=== PATIENT | male | born 1960 | race Caucasian/White ===

== ENCOUNTER 2024-03-09 14:01 | Outpatient (CLI) | payer OTHER, SELFPAY ==
--- NOTE | ~2024-03-09 | MR_ITS ---
EXAMINATION: MR shoulder LT wo con DATE: 03/09/2024 14:55 INDICATION: Shoulder pain TECHNIQUE: Magnetic resonance imaging (MRI) of the left shoulder was performed without intravenous co ntrast. Sequences included axial PD-weighted FS FSE, coronal oblique PD-weighted FS FSE, coronal obli que T2-weighted FS FSE, sagittal PD-weighted FS FSE, and sagittal T1-weighted SE. COMPARISON: None. FINDINGS: Coracoacromial arch: The acromion undersurface is flat in morphology (type I). The coracoacromial ligament is normal. Mode rate acromioclavicular osteoarthritis. Rotator cuff: Mild supraspinatus and infraspinatus tendinopathy without discrete tear. The teres minor tendon is no rmal. The subscapularis tendon is normal. Normal rotator cuff muscle bulk and signal. Biceps tendon, glenoid labrum and glenohumeral cartilage: Long head of the biceps tendon is normal. There is amorphous increased signal at the posterior superi or glenoid labrum consistent with labral degeneration. Small shallow tear at the chondral labral junc tion centered at the 3:00 position of the anterior glenoid. Partial-thickness chondral ulceration wit hout degenerative subchondral changes most prominent along the central and cephalad aspect of the gle noid and inferomedial and superior aspects of the humeral head. Fluid: Physiologic amount of fluid in the glenohumeral joint and biceps tendon sheath. No loose osteochondr al bodies. Mild increased fluid signal along the subdeltoid bursa consistent with minimal bursitis. Bones: Normal marrow signal with no edema, fracture or abnormal marrow replacing process. IMPRESSION: 1. Mild glenohumeral osteoarthritis with degeneration of the posterior superior glenoid labrum and sm all shallow tear at the chondrolabral junction at the anterior glenoid. 2. Mild supraspinatus and infraspinatus tendinopathy without discrete tear. 3. Moderate acromioclavicular osteoarthritis. Reviewed, dictated and finalized at location B. PEDIATRIC ALLERGIST IMPRESSION: 1. Mild glenohumeral osteoarthritis with degeneration of the posterior superior glenoid labrum and small shallow tear at the chondrolabral junction at the ant erior glenoid. 2. Mild supraspinatus and infraspinatus tendinopathy without discrete tear. 3. Moderate acromioclavicular osteoarthritis.
== END 2024-03-09 14:02 | disposition home or self-care (01) ==
LOC: MICIMG 14:03
PROVIDERS: PCP Orthopaedic Surgery; Visit Provider Orthopaedic Surgery
DX: M19.012 Primary osteoarthritis, left shoulder (principal)
CPT/HCPCS: 73221

== ENCOUNTER 2024-03-30 08:35 | Outpatient (CLI) | payer OTHER, SELFPAY ==
--- NOTE | ~2024-03-30 | XR_ITS ---
EXAMINATION: XR lg joint inject/asp w image DATE: 03/30/2024 09:14 INDICATION: Adhesive capsulitis of left shoulder. TECHNIQUE: A time-out was performed to verify the patient's name, date of , and procedure to b e performed. The procedure including the risks, benefits, and alternatives was discussed with the pat ient. Risks discussed included bleeding and infection. The patient understood the risks and agreed to proceed. The skin overlying the left glenohumeral joint was prepped and draped in usual sterile fas hion. Anesthetic was administered with 1% lidocaine subcutaneously. A 22 G needle was advanced unde r fluoroscopic guidance into the joint. Subsequently, injectate consisting of 4 mL 1% lidocaine and 1 mL 80 mg/mL Depo-Medrol was instilled. The needle was removed and the entry site was cleaned and d ressed. There were no immediate complications. Fluoroscopy exposure time was 0.1 minutes. The total number of images was 1. FINDINGS: Real-time fluoroscopy demonstrates the needle in the left glenohumeral joint. Patient's laverne n prior to procedure:2/10. Patient's pain following the procedure: 0/10. IMPRESSION: 1. Fluoroscopy guided left glenohumeral joint injection of local anesthetic and steroid with decrease in the patient's presenting pain. Reviewed, dictated and finalized at location A. NING SPECIALIST
== END 2024-03-30 08:36 | disposition home or self-care (01) ==
LOC: ANHIMG 08:35
PROVIDERS: Visit Provider Orthopaedic Surgery
DX: M75.02 Adhesive capsulitis of left shoulder (principal); M25.512 Pain in left shoulder
CPT/HCPCS: 20610; 77002; J1010; J2003

== ENCOUNTER 2024-05-12 12:22 | Emergency (ER) | payer OTHER, SELFPAY ==
--- NOTE | ~2024-05-12 | CT_ITS ---
EXAMINATION: CT abdomen pelvis wo con DATE: 05/12/2024 15:13 INDICATION: Kidney stones TECHNIQUE: Computed tomography (CT) of the abdomen and pelvis was performed without intravenous contr ast. Automated exposure control and iterative reconstruction technique were employed. The dose-length product was 1454.20 mGy-cm. COMPARISON: None FINDINGS: Lung bases are clear. Heart size is normal. No pericardial or pleural effusion. Postoperative change of prior sleeve gastrectomy and cholecystectomy. Liver, spleen, pancreas and bilateral adrenal glands are normal. No urolithiasis at the normal bilateral kidneys and ureters. No hydroureteronephrosis or perinephric/ureteral stranding. Bladder is normal. There is however a 6 mm stone at the central glan ds of the penis likely within the distalmost penile urethra. No bowel obstruction. No free intraperit haney gas or fluid. No pathologically enlarged abdominal or pelvic lymphadenopathy. There are bilater al common iliac to external iliac artery stents. Chronic appearing mild anterior wedging at the T9-L1 with moderate lower thoracic and mild lumbar spondylosis. IMPRESSION: 1. 6 mm stone in the distal penile urethra. No other urolithiasis or hydronephrosis. Reviewed, dictated and finalized at location B. CTOR OF CASINO IMPRESSION: 1. 6 mm stone in the distal penile urethra. No other urolithiasis or hydronephr osis.
[2024-05-12 12:28] VITALS: BP 171/76; PULSE 73; RESP 18; TEMP 36.6; O2SAT 99
--- NOTE | 2024-05-12 13:13 | ED_ITS ---
HPI - Male Genitourinary General Chief complaint: Urogenital-Male <Racquel Ponce PA-C - Last Filed: 05/12/24 13:14> Stated complaint: kidney stone <Racquel Ponce PA-C - Last Filed: 05/12/24 13:14> Time Seen by Provider: 05/12/24 13:50 <Racquel Ponce PA-C - Last Filed: 05/12/24 13:14> Focused HPI: 63-year-old male presents to the emergency department with difficulty emptying his bladder for 1 week. Patient states he dribbles when he tries to urinate. He has no history of this occurring in the past. He is concerning may have a kidney stone stuck in his penis. He has no history of kidney stones. Denies abdominal pain or flank pain. Denies burning with urination and hematuria, however he does state he has some burning at the tip of his penis. No rashes or fever. Denies known history of enlarged prostate. GENERAL: Well-appearing, well-nourished, and in no acute distress. HEAD: Normocephalic, atraumatic. CHEST: Clear to auscultation. ?No respiratory distress. ABD: Normoactive bowel sounds for abdomen soft and nontender. No rebound or rigidity. No CVA tenderness. HEART: Regular rate and rhythm.? NEURO: ?Alert and oriented x3. Patient screened in triage and initial orders placed.? ?Additional care and disposition to be based upon?diagnostic testing and treatment. <Racquel Ponce PA-C - Last Filed: 05/12/24 13:14> Source: patient <Redd Eduardo MD - Last Filed: 05/12/24 16:10> Mode of arrival: ambulatory <Redd Eduardo MD - Last Filed: 05/12/24 16:10> Limitations: no limitations <Redd Eduardo MD - Last Filed: 05/12/24 16:10> History of Present Illness HPI Narrative: 63-year-old with a history of of hypercholesteremia, Cl 100 admission, good here with the complaints of difficulty in urinating for past 1 week. Patient states he has mild pain in his penis when urinating. Denies any blood in the urine. No previous history of BPH or kidney stones . Denies any nausea or vomiting. No history of fever or chills. <Redd Eduardo MD - Last Filed: 05/12/24 16:10> MD Complaint: other (Penile pain) <Redd Eduardo MD - Last Filed: 05/12/24 16:10> Onset (ago): week(s) (1) <Redd Eduardo MD - Last Filed: 05/12/24 16:10> Duration: intermittent <Redd Eduardo MD - Last Filed: 05/12/24 16:10> Radiation: penis <Redd Eduardo MD - Last Filed: 05/12/24 16:10> Severity: mild <Redd Eduardo MD - Last Filed: 05/12/24 16:10> Quality: aching <Redd Eduardo MD - Last Filed: 05/12/24 16:10> Relieving factors: none <Redd Eduardo MD - Last Filed: 05/12/24 16:10> Exacerbating factors: urination <Redd Eduardo MD - Last Filed: 05/12/24 16:10> Associated symptoms: Reports denies other symptoms <Redd Eduardo MD - Last Filed: 05/12/24 16:10> Related Data Home medications: Home Medications ?Medication ?Instructions ?Recorded ?Confirmed ?Last Taken ?Type albuterol sulfate 90 mcg/actuation 1 puff inhalation Q4H PRN 02/18/24 03/17/24 Unknown History aerosol inhaler aspirin 81 mg tablet,delayed 81 mg PO DAILY 02/18/24 03/17/24 Unknown History release clopidogrel 75 mg tablet 75 mg PO DAILY 02/18/24 03/17/24 Unknown History furosemide 20 mg tablet 20 mg PO BID 02/18/24 03/17/24 Unknown History metoprolol succinate 25 mg 25 mg PO DAILY 02/18/24 03/17/24 Unknown History tablet,extended release 24 hr omeprazole 40 mg capsule,delayed 40 mg PO DAILY 02/18/24 03/17/24 Unknown History release pravastatin 40 mg tablet 40 mg PO DAILY 02/18/24 03/17/24 Unknown History prochlorperazine maleate 10 mg 10 mg PO Q8H PRN 10/23/24 11/20/24 Unknown History tablet propranolol 60 mg capsule,24 60 mg PO DAILY 02/18/24 03/17/24 Unknown History hr,extended release trazodone 50 mg tablet 50 mg PO QHS PRN 02/18/24 03/17/24 Unknown History <Racquel Ponce PA-C - Last Filed: 05/12/24 13:14> Allergies/Adverse reactions: Allergies Allergy/AdvReac Type Severity Reaction Status Date / Time No Known Allergies Allergy Mild Verified 03/17/24 11:44 <Racquel Ponce PA-C - Last Filed: 05/12/24 13:14> Review of Systems 2 Review of Systems: All systems reviewed & are unremarkable except as noted in HPI and below <Redd Eduardo MD - Last Filed: 05/12/24 16:10> Constitutional: Constitutional: Reports no additional constitutional complaints <Redd Eduardo MD - Last Filed: 05/12/24 16:10> ENT: Reports system reviewed and no additional complaints, except as documented <Redd Eduardo MD - Last Filed: 05/12/24 16:10> Cardiovascular: Cardiovascular: Reports no additional cardiovascular complaints <Redd Eduardo MD - Last Filed: 05/12/24 16:10> Respiratory: Respiratory: Reports no additional respiratory complaints < Redd Eduardo MD - Last Filed: 05/12/24 16:10> Gastrointestinal: Gastrointestinal: Reports no additional gastrointestinal complaints <Redd Eduardo MD - Last Filed: 05/12/24 16:10> Genitourinary: Genitourinary: Reports as per HPI <Redd Eduardo MD - Last Filed: 05/12/24 16:10> Musculoskeletal: Musculoskeletal: Reports no additional musculoskeletal complaints <Redd Eduardo MD - Last Filed: 05/12/24 16:10> Integumentary/Breasts: Skin/Breast: Reports system reviewed and no additional complaints, except as docu <Redd Eduardo MD - Last Filed: 05/12/24 16:10> Neurologic: Reports system reviewed and no additional complaints, except as documented <Redd Eduardo MD - Last Filed: 05/12/24 16:10> Endocrine: Endocrine: Reports no additional endocrine complaints <Redd Eduardo MD - Last Filed: 05/12/24 16:10> PMFSH Past Medical History Medical History: Medical History History of chronic lymphocytic leukemia History of tennis elbow 1993 Cancer GERD (gastroesophageal reflux disease) Asthma <Racquel Ponce PA-C - Last Filed: 05/12/24 13:14> Surgical History Surgical History: Surgical History History of surgery on lower extremity stints in upper thigh right leg 2020 History of nasal surgery stints 2019 History of cholecystectomy 2019 History of weight loss surgery gastric sleeve 2017 History of tumor removed from right side of jaw under ear 2015 History of skin graft left right finger from neck 1980 History of appendectomy 1975 <Racquel Ponce PA-C - Last Filed: 05/12/24 13:14> Family History Family History: Family History Father Heart disease <Racquel Ponce PA-C - Last Filed: 05/12/24 13:14> Social History Social History: Social History Smoking status: Never smoker Alcohol intake: current Substance use: never Do You Feel Safe in your Home?: Yes Lack of Transportation: No Lack of Food: Never True Current Housing: I Have Housing Concerned About Future Housing: No Difficulty Paying Gas/Electric Bills: No Difficulty Paying for Meds: No Currently Unemployed: No Education: High School Diploma/GED Difficulty w/ Childcare or Family Care: No Living arrangements: with family <Racquel Ponce PA-C - Last Filed: 05/12/24 13:14> Exam 2 Narrative: GENERAL: Well-appearing, well-nourished, and in no acute distress. HEAD: Normocephalic, atraumatic. EYES: PERRLA and EOMI. ENT: Nares clear, no rhinorrhea or epistaxis. Mucous membranes moist. NECK: Supple. CHEST: Clear to auscultation. No respiratory distress. HEART: Regular rate and rhythm. No murmur heard. Normal peripheral pulses. ABDOMEN: Soft, nontender, nondistended, normal active bowel sounds. No CVA tenderness EXTREMITIES: Normal range of motion. No edema. SKIN: Warm, dry, no rash. NEURO: No focal deficits. Alert and oriented x3. PSYCH: Normal mood and affect. <Redd Eduardo MD - Last Filed: 05/12/24 16:10> Course Course Emergency Course: Patient remained comfortable while here in the ER. Informed him about the lab work, CT findings. Advised him to drink more fluids as tolerated. <Redd Eduardo MD - Last Filed: 05/12/24 16:10> Vital Signs Vital signs: Vital Signs Temperature 36.6 C 05/12/24 12:28 Pulse Rate 73 05/12/24 12:28 Respiratory Rate 18 05/12/24 12:28 Blood Pressure 171/76 H 05/12/24 12:28 Pulse Oximetry 99 05/12/24 12:28 Oxygen Delivery Room Air 05/12/24 12:28 Temperature 36.6 C 05/12/24 12:28 Pulse Rate 73 05/12/24 12:28 Respiratory Rate 18 05/12/24 12:28 Blood Pressure 171/76 H 05/12/24 12:28 Pulse Oximetry 99 05/12/24 12:28 Oxygen Delivery Room Air 05/12/24 12:28 <Racquel Ponce PA-C - Last Filed: 05/12/24 13:14> Vital Signs Temperature 36.6 C 05/12/24 12:28 Pulse Rate 73 05/12/24 12:28 Respiratory Rate 18 05/12/24 12:28 Blood Pressure 171/76 H 05/12/24 12:28 Pulse Oximetry 99 05/12/24 12:28 Oxygen Delivery Room Air 05/12/24 12:28 Temperature 36.6 C 05/12/24 12:28 Pulse Rate 73 05/12/24 12:28 Respiratory Rate 18 05/12/24 12:28 Blood Pressure 171/76 H 05/12/24 12:28 Pulse Oximetry 99 05/12/24 12:28 Oxygen Delivery Room Air 05/12/24 12:28 <Redd Eduardo MD - Last Filed: 05/12/24 16:10> MDM - Male Genitourinary Differential Diagnosis Differential diagnosis: Likely urinary tract infection, urethritis and other (Kidney stone) <Redd Eduardo MD - Last Filed: 05/12/24 16:10> Medical Records Attestation: I reviewed the patient's medical records. <Redd Eduardo MD - Last Filed: 05/12/24 16:10> Lab Data Attestation: I reviewed the patient's lab results. <Redd Eduardo MD - Last Filed: 05/12/24 16:10> Result diagrams: 05/12/24 13:51 05/12/24 13:51 <Racquel Ponce PA-C - Last Filed: 05/12/24 13:14> Labs: Lab Results 05/12/24 Range/Units 13:51 WBC 7.9 (4.5-10.0) K/mm3 RBC 4.58 L (4.6-6.20) M/mm3 Hgb 14.4 (14.0-18.0) g/dL Hct 43.1 (42.0-52.0) % MCV 94.1 (80-100) fl MCH 31.4 (26-34) pg MCHC 33.4 (32-36) g/dl RDW 14.5 (11.5-14.5) % Plt Count 228 (150-375) k/mm3 MPV 10.2 (7.4-10.4) fl Immature Gran % (Auto) 0.3 (0-0.5) % Neut % (Auto) 53.6 (45.5-73.1) % Lymph % (Auto) 33.9 (18.3-44.2) % Morgan % (Auto) 10.2 H (2.6-8.5) % Eos % (Auto) 1.1 (0-4.4) % Baso % (Auto) 0.9 (0.2-1.2) % Lymph # (Auto) 2.69 (0.9-3.2) K/mm3 Morgan # (Auto) 0.8 H (0.1-0.6) K/mm3 Eos # (Auto) 0.1 (0-0.3) K/mm3 Baso # (Auto) 0.1 (0.0-0.1) K/mm3 Abs Immat Gran (auto) 0.02 (0.00-0.031) K/mm3 Absolute Neuts (auto) 4.3 (1.3-6.7) K/mm3 Absolute Nucleated RBC 0.000 (0.0-0.012) K/mm3 Nucleated RBC % 0.0 (0.0-0.2) % Sodium 135 L (137-145) mmol/L Potassium 4.5 (3.4-5.0) mmol/L Chloride 102 (98-107) mmol/L Carbon Dioxide 29 (22-30) mmol/L Anion Gap 4 (4-12) mmol/L BUN 19 (9-20) mg/dL Creatinine 0.69 L (0.7-1.3) mg/dL Estim Creat Clear Calc 119 ml/min Estimated GFR > 60 (59 - ) Glucose 108 (65-110) mg/dL Calcium 8.3 L (8.4-10.2) mg/dL Urine Color Yellow (Yellow) Urine Appearance Clear (Clear) Urine pH 5.5 (5.0-9.0) Ur Specific [place] 1.016 (1.001-1.035) Urine Protein Negative (Negative) mg/dL Urine Glucose (UA) Negative (Negative) mg/dL Urine Ketones Negative (Negative) mg/dL Ur Blood (Man) Negative (Negative) Urine Nitrate Negative (Negative) Urine Bilirubin Negative (Negative) Urine Urobilinogen 0.2 (<2.0) mg/dL Leukocyte Esterase Rfl 1+ H (Negative) AMBER/UL Urine RBC 0-2 (0-2) /hpf Urine WBC 0-5 (0-3) /hpf Ur Squamous Epith Cells None seen (Few) /hpf Urine Bacteria None seen /hpf Urine Casts 0-2 Hyaline Casts Present (None) /lpf <Racquel Ponce PA-C - Last Filed: 05/12/24 13:14> Lab Results 05/12/24 Range/Units 13:51 WBC 7.9 (4.5-10.0) K/mm3 RBC 4.58 L (4.6-6.20) M/mm3 Hgb 14.4 (14.0-18.0) g/dL Hct 43.1 (42.0-52.0) % MCV 94.1 (80-100) fl MCH 31.4 (26-34) pg MCHC 33.4 (32-36) g/dl RDW 14.5 (11.5-14.5) % Plt Count 228 (150-375) k/mm3 MPV 10.2 (7.4-10.4) fl Immature Gran % (Auto) 0.3 (0-0.5) % Neut % (Auto) 53.6 (45.5-73.1) % Lymph % (Auto) 33.9 (18.3-44.2) % Morgan % (Auto) 10.2 H (2.6-8.5) % Eos % (Auto) 1.1 (0-4.4) % Baso % (Auto) 0.9 (0.2-1.2) % Lymph # (Auto) 2.69 (0.9-3.2) K/mm3 Morgan # (Auto) 0.8 H (0.1-0.6) K/mm3 Eos # (Auto) 0.1 (0-0.3) K/mm3 Baso # (Auto) 0.1 (0.0-0.1) K/mm3 Abs Immat Gran (auto) 0.02 (0.00-0.031) K/mm3 Absolute Neuts (auto) 4.3 (1.3-6.7) K/mm3 Absolute Nucleated RBC 0.000 (0.0-0.012) K/mm3 Nucleated RBC % 0.0 (0.0-0.2) % Sodium 135 L (137-145) mmol/L Potassium 4.5 (3.4-5.0) mmol/L Chloride 102 (98-107) mmol/L Carbon Dioxide 29 (22-30) mmol/L Anion Gap 4 (4-12) mmol/L BUN 19 (9-20) mg/dL Creatinine 0.69 L (0.7-1.3) mg/dL Estim Creat Clear Calc 119 ml/min Estimated GFR > 60 (59 - ) Glucose 108 (65-110) mg/dL Calcium 8.3 L (8.4-10.2) mg/dL Urine Color Yellow (Yellow) Urine Appearance Clear (Clear) Urine pH 5.5 (5.0-9.0) Ur Specific [place] 1.016 (1.001-1.035) Urine Protein Negative (Negative) mg/dL Urine Glucose (UA) Negative (Negative) mg/dL Urine Ketones Negative (Negative) mg/dL Ur Blood (Man) Negative (Negative) Urine Nitrate Negative (Negative) Urine Bilirubin Negative (Negative) Urine Urobilinogen 0.2 (<2.0) mg/dL Leukocyte Esterase Rfl 1+ H (Negative) AMBER/UL Urine RBC 0-2 (0-2) /hpf Urine WBC 0-5 (0-3) /hpf Ur Squamous Epith Cells None seen (Few) /hpf Urine Bacteria None seen /hpf Urine Casts 0-2 Hyaline Casts Present (None) /lpf <Redd Eduardo MD - Last Filed: 05/12/24 16:10> Imaging Data Radiologist's impression: ITS Impressions Abdomen/Pelvis CT 05/12/24 15:15 IMPRESSION: 1. 6 mm stone in the distal penile urethra. No other urolithiasis or hydronephrosis. <Redd Eduardo MD - Last Filed: 05/12/24 16:10> Discharge Plan Discharge Clinical Impression: Urethral calculus <Racquel Ponce PA-C - Last Filed: 05/12/24 13:14> Patient Disposition: Home, Self-Care <Racquel Ponce PA-C - Last Filed: 05/12/24 13:14> Condition: Stable <Racquel Ponce PA-C - Last Filed: 05/12/24 13:14> Instructions: Kidney Stones (ED) <Racquel Ponce PA-C - Last Filed: 05/12/24 13:14> Additional Instructions: Drink more fluids, can take Tylenol ibuprofen for pain. Follow-up with the urologist if within not improve in 1 week <VILMA Herman Last Filed: 05/12/24 13:14> Patient Language: Swazi <VILMA Herman Last Filed: 05/12/24 13:14> Prescriptions: No Action prochlorperazine maleate 10 mg tablet 10 mg PO Q8H PRN trazodone 50 mg tablet 50 mg PO QHS PRN furosemide 20 mg tablet 20 mg PO BID omeprazole 40 mg capsule,delayed release(DR/EC) 40 mg PO DAILY pravastatin 40 mg tablet 40 mg PO DAILY albuterol sulfate 90 mcg/actuation HFA aerosol inhaler 1 puff inhalation Q4H PRN clopidogrel 75 mg tablet 75 mg PO DAILY metoprolol succinate 25 mg tablet extended release 24 hr 25 mg PO DAILY propranolol 60 mg capsule,extended release 24 hr 60 mg PO DAILY aspirin 81 mg tablet,delayed release (DR/EC) 81 mg PO DAILY <Racquel Ponce PA-C - Last Filed: 05/12/24 13:14> Follow-up/Referrals: Cindy Luke MD [Physician] - PHYSICIAN,RAILROAD WATCHMAN [Non-Staff] - <Racquel Ponce PA-C - Last Filed: 05/12/24 13:14> Time of Disposition: 16:10 <Racquel Ponce PA-C - Last Filed: 05/12/24 13:14> 16:10 <Redd Eduardo MD - Last Filed: 05/12/24 16:10>
[2024-05-12 14:00] LABS: Basophils Absolute Auto 0.1 K/mm3 (0.0-0.1); Basophils Percent Auto 0.9 % (0.2-1.2); Eosinophils Absolute Auto 0.1 K/mm3 (0-0.3); Eosinophils Percent Auto 1.1 % (0-4.4); Hematocrit 43.1 % (42.0-52.0); Hemoglobin 14.4 g/dL (14.0-18.0); Immature Granulocyte Absolute 0.02 K/mm3 (0.00-0.031); Immature Granulocyte Percent A 0.3 % (0-0.5); Lymphocytes Absolute Auto 2.69 K/mm3 (0.9-3.2); Lymphocytes Percent Auto 33.9 % (18.3-44.2); Mean Corpuscular HGB Conc 33.4 g/dl (32-36); Mean Corpuscular Hemoglobin 31.4 pg (26-34); Mean Corpuscular Volume 94.1 fl (80-100); Mean Platelet Volume 10.2 fl (7.4-10.4); Monocytes Absolute Auto 0.8 K/mm3 (0.1-0.6); Monocytes Percent Auto 10.2 % (2.6-8.5); Neutrophils Absolute Auto 4.3 K/mm3 (1.3-6.7); Neutrophils Percent Auto 53.6 % (45.5-73.1); Platelet Count Result 228 k/mm3 (150-375); Red Blood Count 4.58 M/mm3 (4.6-6.20); Red Cell Distribution Width 14.5 % (11.5-14.5); White Blood Count 7.9 K/mm3 (4.5-10.0)
[2024-05-12 14:12] LABS: Add Urine Microscopic? YES; Appearance Urine Clear (Clear); Bacteria Urine None Seen /hpf; Bilirubin Urine Negative (Negative); Blood Urine Negative (Negative); Color Urine Yellow (Yellow); Glucose Urine UA Negative (Negative); Hyaline Casts Urine Present /lpf; Ketones Urine Negative (Negative); Leukocyte Esterase Ur 1+ LEU/UL (Negative); Nitrate Urine Negative (Negative); Non Pathogenic Casts 0-2; Protein Urine Negative (Negative); RBC Urine 0-2 /hpf (0-2); Specific Grav Ur 1.016 (1.001-1.035); Squamous Epithelial Cell Urine None Seen /hpf (Few); Urobilinogen Urine 0.2 mg/dL (<2.0); WBC Urine 0-5 /hpf (0-3); pH Urine 5.5 (5.0-9.0)
[2024-05-12 14:16] LABS: Anion Gap 4 mmol/L (4-12); Blood Urea Nitrogen 19 mg/dL (9-20); Calcium 8.3 mg/dL (8.4-10.2); Carbon Dioxide 29 mmol/L (22-30); Chloride 102 mmol/L (98-107); Estimated CRCL calculation 119 ml/min; Estimated Glomerular Filt Rate > 60; Glucose 108 mg/dL (65-110); Potassium 4.5 mmol/L (3.4-5.0); Sodium 135 mmol/L (137-145)
[2024-05-12 16:17] VITALS: BP 145/92; PULSE 89; RESP 16; O2SAT 99
== END 2024-05-12 16:19 | disposition home or self-care (01) ==
PROVIDERS: Physician Assistant; Emergency Provider Family Medicine
DX: N21.1 Calculus in urethra (principal)
CPT/HCPCS: 36415; 74176; 80048; 81001; 85025; 87086; 99284

== ENCOUNTER 2024-07-03 09:11 | Outpatient (CLI) | payer OTHER, SELFPAY ==
--- OUTSIDE RECORDS SUMMARY | 2024-07-03 09:14 | XMS_ITS | Encounter Summary ---
Author Organization [facility] Address [address] [place] [address] Phone Care Team Providers Care Welding Lead Burner Name Role Phone Clement Whalen MD Primary Care Provider [phone] Clement Whalen MD Primary Care Provider [phone] Daryn Loo MD Unavailable [phone] Aamir Echavarria MD Primary Care Provider [phone] Sandy Emery MD Unavailable [phone] Willie Choe MD Unavailable [phone] Chapito Bejarano MD Unavailable [phone] Mel Bolton MD Primary Care Provider [phone] Encounter Details Date Type Department Care Team (Late st Contact Info) Description 09/23/2017 Orders Only [facility] ProviderSteve MD [address] [place] [address] Social History Tobacco Use Types Packs/Day Years Used Date Smoking Tobacco: Former Sex and Gender Information Value Date Recorded Sex Assigned at Not on file Legal Sex Male 10:39 AM SHORT GOODS DRIER Gender Identity Male 02/02/2021 10:33 AM CDT Sexual Orientation Straight 10/29/2018 6: 40 AM CDT documented as of this encounter Plan of Treatment Not on file documented as of this encounter Procedures Procedure Name Priority Date/Time Associated Diagnosis Comments DISCHARGE LABORATORY CUMULATIVE REPORT 09/23/2017 12:00 AM CDT documented in this encounter Results * DISCHARGE LABORATORY CUMULATIVE REPORT (09/23/2017 12:00 AM CDT) Narrative 09/23/2017 12:00 AM CDT Ordered by an unspecified provider. us Historical Provider LAB BLOOD ORDERABLES Felicity l Result documented in this encounter Visit Diagnoses Not on filedocumented in this encounter Additional Health Concerns Infection Onset Date Last Indicated Resolved Time COVID: Suspected 04/12/2020 04/12/2020 04/13/2020 1:02 AM SHORT GOODS DRIER Respiratory Infection (HONEY), contact + droplet Comment:Automatically added due to negative COVID-19 result. 04/13/2020 04/13/2020 04/27/2020 3:0 6 AM SHORT GOODS DRIER documented as of this encounter Care Teams Welding Lead Burner Relationship Specialty Start Date End Date lCement Whalen MD PCP - General 07/11/17 09/24/17 Clement Whalen MD PCP - General 09/25/17 12/13/18 Aamir Echavarria MD PCP - General Internal Medicine 12/14/18 04/29/21 Mel Bolton MD [address] [address] PCP - General Sleep Medicine 04/30/21 Daryn Loo MD Referring Physician Internal Medicine 04/03/18 Sandy Emery MD Medical Oncologist/Manager Performance Improvement Medical Oncology 06/17/20 Willie Choe MD [address] [place] [address] Consulting Physician Otolaryngology 08/17/20 Chapito Bejarano MD [facility] [address] Referring Physician Vascular Surgery 02/16/21 documented as of this encounter
--- OUTSIDE RECORDS SUMMARY | 2024-07-03 09:14 | XMS_ITS ---
Author Organization [facility] Address [address] [place] [address] Care Team Providers Care Steam Presser Name Role Phone Daryn Loo MD Unavailable [phone] Sandy Emery MD Unavailable [phone] Willie Choe MD Unavailable [phone] Chapito Bejarano MD Unavailable [phone] Mel Bolton MD Primary Care Provider [phone] Active Problems Problem Noted Date Diagnosed Date Gastroesophageal reflux disease without esophagi tis 06/26/2023 Assessment & Plan (06/26/2023 10:25 AM DRILL PRESS SET UP OPERATOR): Chronic, stable, controlled on omeprazole. Continue current therapy. Rhinosinusitis 01/15/2023 Assessment & Plan (01/15/2023 1:20 PM CDT): Chronic, improved. Continue nasal saline, intranasal steroids. Paroxysmal atrial fibrillation 05/02/2022 Assessment & Plan (06/26/2023 10:24 AM DRILL PRESS SET UP OPERATOR): In sinus rhythm off antiarrhythmics. Continue metoprolol and monitor. Assessment & Plan (05/02/2022 9:23 PM DRILL PRESS SET UP OPERATOR): In sinus rhythm off antiarrhythmics. Continue metoprolol and monitor. Essential tremor 05/02/2022 Assessment & Plan (08/19/2023 8:55 AM CDT): He has bilateral action/postural tremor (by history, only LUE observed on exam today) with infrequent head involvement that began about 1 year ago and has been stable since then. The most likely etiology is Essential Tremor, though it much be present for >3 years to meet formal diagnostic criteria. He is not on any medications that are commonly associated with action tremor -- trazodone could potentially contribute but less likely given nighttime dosing. He does not have any signs of parkinsonism and I provided reassurance that PD is typically associated with resting tremor not action tremor. We discussed that there is slightly increased risk of developing PD for people with ET, so we will continue to monitor this at future visits. He is satisfied with the current symptomatic benefit from propranolol, and we will not make any medication changes today. He is on a relatively low dose, and increasing to 80 or 120mg daily will be the next step. BP and HR were low-normal today, so these will need to be monitored if we do increase. He did not tolerate primidone in the past, but we could consider retrying with a slower titration if needed (25mg nightly for 2-4 weeks). Topiramate and Gabapentin are second-line options if needed. Recommendations: -Continue Propranolol LA 60mg daily. He will contact us via [employer] if he would like to increase it in the future Assessment & Plan (06/26/2023 10:22 AM DRILL PRESS SET UP OPERATOR): Chronic, improved but not fully controlled on current low-dose propranolol. Will increase propranolol to extended release 60 mg once daily. Metoprolol decreased to avoid bradycardia. Assessment & Plan (01/15/2023 1:20 PM CDT): Chronic, not currently on medication. Consider propranolol in future, though this may require an adjustment in his metoprolol to accommodate additional beta blockade. Assessment & Plan (05/02/2022 9:24 PM DRILL PRESS SET UP OPERATOR): Patient's description of tremor is most consistent with benign essential tremor. Trial of primidone, as tremor is increasingly problematic in patient's quality of life and ADLs. Hypertension, essential 05/02/2022 Assessment & Plan (06/26/2023 10:23 AM DRILL PRESS SET UP OPERATOR): Chronic, well controlled. Continue furosemide and metoprolol. Assessment & Plan (05/02/2022 9:24 PM DRILL PRESS SET UP OPERATOR): Chronic, well controlled. Continue furosemide and metoprolol. Chronic heart failure with preserved ejection fr action 05/02/2022 Assessment & Plan (06/26/2023 10:22 AM DRILL PRESS SET UP OPERATOR): Chronic, stable, euvolemic. Continue furosemide, metoprolol. Assessment & Plan (05/02/2022 9:24 PM DRILL PRESS SET UP OPERATOR): Chronic, stable, euvolemic. Continue furosemide. Peripheral vascular disease 11/06/2021 Assessment & Plan (06/26/2023 10:24 AM DRILL PRESS SET UP OPERATOR): Chronic, improved with intervention by vascular surgery. Continue antiplatelet therapy with clopidogrel, pravastatin. Continued management per Dr. Bejarano. Assessment & Plan (05/02/2022 9:22 PM DRILL PRESS SET UP OPERATOR): Chronic, improved with intervention by vascular surgery. Continue antiplatelet therapy with clopidogrel, pravastatin. Continued management per Dr. Bejarano. Assessment & Plan (11/06/2021 10:03 AM CDT): Chronic, improved with intervention by vascular surgery. Continue antiplatelet therapy with clopidogrel, pravastatin. Continued management per Dr. Bejarano. Morbid obesity with BMI of 45.0-49.9, adult 10/26 Assessment & Plan (06/26/2023 10:23 AM DRILL PRESS SET UP OPERATOR): Continue healthy weight loss effort. Assessment & Plan (01/15/2023 1:20 PM CDT): Continue healthy weight loss efforts. Assessment & Plan (05/02/2022 9:22 PM DRILL PRESS SET UP OPERATOR): Continue healthy weight loss efforts. Assessment & Plan (11/06/2021 10:05 AM CDT): Chronic, worsening. We discussed potential management options. In the setting of patient's pre diabetes seen on recent lab work, we discussed the possibility of a GLP-1 receptor agonist, with the expectation that this would help with weight loss in addition to glycemic control. Discussed need for dietary changes with patient, including cutting back on carbohydrates and switching to diet soda. We discussed him seeing a radiotelephone operator in future though he is not keen on this idea. We will revisit this if we are not seeing improvement in his weight at subsequent visit. Prediabetes 11/06/2021 Assessment & Plan (05/02/2022 9:23 PM DRILL PRESS SET UP OPERATOR): Chronic, stable. Labs today. Assessment & Plan (11/06/2021 10:05 AM CDT): Chronic, in the setting of morbid obesity. We discussed starting a GLP-1 receptor agonist for glycemic control. For this patient with known vascular disease and coronary artery calcifications, the potential cardiovascular risk impact is also important. Prescription for Ozempic sent to patient's pharmacy and samples and coupon provided today. Immunocompromised 07/03/2021 Assessment & Plan (06/26/2023 10:23 AM DRILL PRESS SET UP OPERATOR): Secondary to CLL. Monitor. Continue preventative measures including routine vaccines. Assessment & Plan (05/02/2022 9:22 PM DRILL PRESS SET UP OPERATOR): Secondary to CLL. Monitor. Continue preventative measures including routine vaccines. Preventative health care 05/09/2021 Assessment & Plan (06/26/2023 10:24 AM DRILL PRESS SET UP OPERATOR): He is morbidly obese based on his BMI. Healthy weight loss recommended. He is now a nonsmoker. He last had chest imaging done October 2020. He is now outside the screening window (more than 15 years since he quit) to require additional CTs unless otherwise indicated. He will need AAA screening in future. We will check lab work today. Not due for colonoscopy yet. Assessment & Plan (05/02/2022 9:22 PM DRILL PRESS SET UP OPERATOR): From a preventative health standpoint, he is morbidly obese based on his BMI. Healthy weight loss recommended. He is now a nonsmoker. He last had chest imaging done October 2020. He is now outside the screening window (more than 15 years since he quit) to require additional CTs unless otherwise indicated. He will need AAA screening in future. We will check lab work today. Not due for colonoscopy yet. Assessment & Plan (05/09/2021 11:06 AM DRILL PRESS SET UP OPERATOR): From a preventative health standpoint, he is morbidly obese based on his BMI. Healthy weight loss recommended. He is now a nonsmoker and he is congratulated on this. He last had chest imaging done October 2020. He is now outside the screening window (more than 15 years since he quit) to required additional CTs unless otherwise indicated. He will need AAA screening in future. We will check lab work today. Chronic obstructive pulmonary disease 04/30/2021 Assessment & Plan (06/26/2023 10:23 AM DRILL PRESS SET UP OPERATOR): Chronic, stable, adequately controlled only with albuterol p.r.n.. Continue current regimen. Consider restarting maintenance inhaler therapy in future. Assessment & Plan (05/02/2022 9:20 PM DRILL PRESS SET UP OPERATOR): Chronic, stable. Now tobacco free. Continue Symbicort and p.r.n. rescue inhalers albuterol and ipratropium. Assessment & Plan (05/09/2021 11:04 AM DRILL PRESS SET UP OPERATOR): Chronic, stable. Now tobacco free. Continue Symbicort and p.r.n. rescue inhalers albuterol and ipratropium. If symptoms should worsen consider adding anti muscarinic. Major depressive disorder, recurrent, mild 04/30 Assessment & Plan (06/26/2023 10:23 AM DRILL PRESS SET UP OPERATOR): Chronic, stable, well controlled not currently on medication. Monitor. Assessment & Plan (05/02/2022 9:21 PM DRILL PRESS SET UP OPERATOR): Chronic, stable, well controlled. Continue low-dose sertraline 50 mg. Assessment & Plan (05/09/2021 11:04 AM DRILL PRESS SET UP OPERATOR): Chronic, in remission. Continue low-dose sertraline 50 mg. Coronary artery calcification 04/12/2021 Assessment & Plan (05/09/2021 11:05 AM DRILL PRESS SET UP OPERATOR): Chronic, stable. Continue antiplatelet therapy with Plavix. No aspirin due to Eliquis use. Continue pravastatin. Continue regular follow-up with Cardiology. Obstructive sleep apnea syndrome 01/31/2021 Personal history of nicotine dependence 12/30/19 21 Hypogammaglobulinemia 05/02/2020 Assessment & Plan (06/26/2023 10:23 AM DRILL PRESS SET UP OPERATOR): Chronic, in the setting of CLL. Monitor. Assessment & Plan (05/02/2022 9:20 PM DRILL PRESS SET UP OPERATOR): Chronic, in the setting of CLL. Monitor. Assessment & Plan (05/09/2021 11:03 AM DRILL PRESS SET UP OPERATOR): Chronic, in the setting of CLL. Continue to follow with Hematology-Oncology. Pulmonary infiltrates 03/02/2020 Chronic lymphocytic leukemia 02/13/2015 Assessment & Plan (06/26/2023 10:22 AM DRILL PRESS SET UP OPERATOR): Chronic, stable, without evidence of disease progression. Continue heme-onc follow up. Assessment & Plan (05/02/2022 9:20 PM DRILL PRESS SET UP OPERATOR): Chronic, stable. Continue heme-onc follow up. Assessment & Plan (05/09/2021 11:02 AM DRILL PRESS SET UP OPERATOR): Chronic. Continue to follow with Hematology-Oncology. Current Treatment and Therapy Plans No current plan information found. Past Treatment and Therapy Plans Oncology Chemotherapy Treatment Plan Name Start Date Discontinue Date Treatment Medications Discontinue Reason Plan Provider Cycles [id number] - [facility] - Lymphoma - [id number] - Arm B - Ibrutinib / Obinutuzumab 9 12/28/[address] (/EA 9161) obinutuzumab IVPB in 250 mLINV-[id number] ibrutinib (/EA 9161) Toxicity/Compl ication Sandy Emery MD 30 of 37 cycles started Oncology Supportive Care Plan Name Start Date Discontinue Date Treatment Medications Discontinue Reason Plan Provider FILGRASTIM SUBCUTANEOUS 11/09/2018 03/29/2021 No medications scheduled. Change in Level of Care Sandy Emery MD Specialty Infusion Treatment Plan Name Start Date Discontinue Date Treatment Medications Discontinue Reason Plan Provider IV MAINTENANCE THERAPY PLAN 09/08/2018 07/03/2021 No medications scheduled. Therapy Complete Sandy Emery MD Lifetime Dose Tracking * Chemical Lifetime Dose Automatic Entry Manual Entr y Fluoro Time 0.7 minutes 0.7 minutes 0 minutes Air kerma at the reference point (Ka,r) 5 mGy 5 mGy 0 mGy DLP 6,282 mGycm 6,282 mGycm 0 mGycm Resolved Problems Problem Noted Date Diagnosed Date Resolved Date Atrial fibrillation, chronic 01/04/2021 05/02/2022 Overview (01/04/2021): Added automatically from request for surgery [id number] Assessment & Plan (05/09/2021 11:03 AM DRILL PRESS SET UP OPERATOR): Chronic, currently stable and rate controlled with metoprolol, rhythm controlled with flecainide, and anticoagulated with Eliquis. Proceed with EP consult to evaluate switching therapies.
--- OUTSIDE RECORDS SUMMARY | 2024-07-03 09:14 | XMS_ITS | Encounter Summary ---
Author Organization [facility] Address [address] [place] [address] Phone Care Team Providers Care Shear Tender Name Role Phone Daryn Loo MD Unavailable Aamir Echavarria MD Primary Care Provider [phone] Sandy Emery MD Unavailable [phone] Willie Choe MD Unavailable [phone] Chapito Bejarano MD Unavailable [phone] Mel Bolton MD Primary Care Provider [phone] Encounter Details Date Type Department Care Team (Latest Contact Info) Description 02/07/2021 Orders Only [facility] Scanning, Provider Social History Tobacco Use Types Packs/Day Years Used Date Smoking Tobacco: Former Smokeless Tobacco: Never Alcohol Use Standard Drinks/Week Comments Not Currently 0 (1 standard drink = 0.6 oz pur e alcohol) Sex and Gender Information Value Date Recorded Sex Assigned at Not on file Legal Sex Male 10:39 AM DOORPERSON Gender Identity Male 02/02/2021 10:33 AM CDT Sexual Orientation Straight 10/29/2018 6: 40 AM CDT documented as of this encounter Plan of Treatment Not on file documented as of this encounter Procedures Procedure Name Priority Date/Time Associated Diagnosis Comments SCAN - RADIOLOGY/IMAGING 02/07/2021 documented in this encounter Results * SCAN - RADIOLOGY/IMAGING (02/07/2021) Anatomical Region Laterality Modality Other us Provider Scanning Final Result documented in this encounter Visit Diagnoses Not on filedocumented in this encounter Care Teams Shear Tender Relationship Specialty Start Date End Date Aamir Echavarria MD PCP - General Internal Medicine 12/14/18 04/29/21 Mel Bolton MD [address] [facility] [address] [place] [address] PCP - General Sleep Medicine 04/30/21 Daryn Loo MD Referring Physician Internal Medicine 04/03/18 Sandy Emery MD Medical Oncologist/Damper Fitter Medical Oncology 06/17/20 Willie Choe MD [address] [place] [address] Consulting Physician Otolaryngology 08/17/20 Chapito Bejarano MD [address] [facility] [address] [place] [address] Referring Physician Vascular Surgery 02/16/21 documented as of this encounter
--- OUTSIDE RECORDS SUMMARY | 2024-07-03 09:14 | XMS_ITS | Encounter Summary ---
Author Organization [facility] Address [address] [place] [address] Phone Care Team Providers Care Bench Tool Maker Name Role Phone Daryn Loo MD Unavailable [phone] Aamir Echavarria MD Primary Care Provider [phone] Sandy Emery MD Unavailable [phone] Willie Choe MD Unavailable [phone] Chapito Bejarano MD Unavailable [phone] Mel Bolton MD Primary Care Provider [phone] Encounter Details Date Type Department Care Team (Latest Contact Info) Description 07/02/2019 Orders Only [facility] Scanning, Provider Social History Tobacco Use Types Packs/Day Years Used Date Smoking Tobacco: Former Smokeless Tobacco: Never Sex and Gender Information Value Date Recorded Sex Assigned at Not on file Legal Sex Male 10:39 AM LUMPIA WRAPPER MAKER Gender Identity Male 02/02/2021 10:33 AM CDT Sexual Orientation Straight 10/29/2018 6: 40 AM CDT documented as of this encounter Plan of Treatment Not on file documented as of this encounter Procedures Procedure Name Priority Date/Time Associated Diagnosis Comments SCAN - PATHOLOGY 07/02/2019 documented in this encounter Results * SCAN - PATHOLOGY (07/02/2019) us Provider Scanning Final Result documented in this encounter Visit Diagnoses Not on filedocumented in this encounter Additional Health Concerns Infection Onset Date Last Indicated Resolved Time COVID: Suspected 04/12/2020 04/12/2020 04/13/2020 1:02 AM LUMPIA WRAPPER MAKER Respiratory Infection (HONEY), contact + droplet Comment:Automatically added due to negative COVID-19 result. 04/13/2020 04/13/2020 04/27/2020 3:0 6 AM LUMPIA WRAPPER MAKER documented as of this encounter Care Teams Bench Tool Maker Relationship Specialty Start Date End Date Aamir Echavarria MD PCP - General Internal Medicine 12/14/18 04/29/21 Mel Bolton MD [address] [facility] [address] [place], [place] [id number] PCP - General Sleep Medicine 04/30/21 Daryn Loo MD Referring Physician Internal Medicine 04/03/18 Sandy Emery MD Medical Oncologist/Senior Cobol Developer Medical Oncology 06/17/20 Willie Choe MD [address] [place] [address] Consulting Physician Otolaryngology 08/17/20 Chapito Bejarano MD [address] [facility] [address] [place], [place] [id number] Referring Physician Vascular Surgery 02/16/21 documented as of this encounter
--- OUTSIDE RECORDS SUMMARY | 2024-07-03 09:14 | XMS_ITS | Encounter Summary ---
Author Organization [facility] Address [address] [place] [address] Phone Care Team Providers Care Fagot Heater Name Role Phone Daryn Loo MD Unavailable [phone] Aamir Echavarria MD Primary Care Provider [phone] Sandy Emery MD Unavailable [phone] Willie Choe MD Unavailable [phone] Chapito Bejarano MD Unavailable Mel Bolton MD Primary Care Provider [phone] Encounter Details Date Type Department Care Team (Late st Contact Info) Description 04/05/2021 Telephone [facility] [address] [facility] Advanced Medicine 8th [place] [address] [place] [address] Stephanie Sawyer Social History Tobacco Use Types Packs/Day Years Used Date Smoking Tobacco: Former Smokeless Tobacco: Never Alcohol Use Standard Drinks/Week Comments Not Currently 0 (1 standard drink = 0.6 oz pur e alcohol) Sex and Gender Information Value Date Recorded Sex Assigned at Not on file Legal Sex Male 10:39 AM JEWELSMITH Gender Identity Male 02/02/2021 10:33 AM CDT Sexual Orientation Straight 10/29/2018 6: 40 AM CDT documented as of this encounter Plan of Treatment Not on file documented as of this encounter Visit Diagnoses Not on filedocumented in this encounter Care Teams Fagot Heater Relationship Specialty Start Date End Date Aamir Echavarria MD PCP - General Internal Medicine 12/14/18 04/29/21 Mel Bolton MD [address] [facility] [address] [place] [address] PCP - General Sleep Medicine 04/30/21 Daryn Loo MD Referring Physician Internal Medicine 04/03/18 Sandy Emery MD Medical Oncologist/Reverberatory Furnace Operator Medical Oncology 06/17/20 Willie Choe MD [address] [place] [address] Consulting Physician Otolaryngology 08/17/20 Chapito Bejarano MD [address] [facility] [address] [place] [address] Referring Physician Vascular Surgery 02/16/21 documented as of this encounter
--- OUTSIDE RECORDS SUMMARY | 2024-07-03 09:14 | XMS_ITS | Encounter Summary ---
Author Organization [facility] Healthcare Address [address] [place] [address] Care Team Providers Care Meringuer Name Role Phone Daryn Loo MD Unavailable [phone] Sandy Emery MD Unavailable [phone] Willie Choe MD Unavailable [phone] Chapito Bejarano MD Unavailable [phone] Mel Bolton MD Primary Care Provider [phone] Encounter Details Date Type Department Care Team (Late st Contact Info) Description 07/01/2024 Telephone [facility] [address] [facility] [place] [address] Kelly Peralta Social History Tobacco Use Types Packs/Day Years Used Date Smoking Tobacco: Former Cigarettes 0.8 15 S tarted: 1982 Smokeless Tobacco: Never Alcohol Use Standard Drinks/Week Comments Not Currently 0 (1 standard drink = 0.6 oz pur e alcohol) PHQ-2 Answer Date Recorded PHQ-2 Total Score (If total score is 3 or more points, staff should administer the PHQ-9) 0 07/01/2024 Sex and Gender Information Value Date Recorded Sex Assigned at Not on file Legal Sex Male 10:39 AM [employer]RIBUT[employer] ASSOCIATE Gender Identity Male 02/02/2021 10:33 AM CDT Sexual Orientation Straight 10/29/2018 6: 40 AM CDT documented as of this encounter Ordered Prescriptions Prescription Sig Dispense Quantity Refills Last Filled Start Date End Date metoprolol XL (TOPROL-XL) 25 mg extended release tablet Take 1 tablet (25 mg total) by mouth daily 100 tablet 1 07/02/2024 07/02/2025 documented in this encounter Miscellaneous Notes * Telephone Encounter - Kelly Peralta - 07/01/2024 3:37 PM CST NOV 07/01/2025 DWAYNE 07/01/2024 [employer] documented in this encounter Plan of Treatment Not on file documented as of this encounter Visit Diagnoses Not on filedocumented in this encounter Discontinued Medications Medication Sig Discontinue Reason Start Date End Da te metoprolol XL (TOPROL-XL) 25 mg extended release tablet Take 1 tablet (25 mg total) by mouth daily Reorder 06/26/2023 07/01/2024 documented as of this encounter Care Teams Meringuer Relationship Specialty Start Date End Date Mel Bolton MD [address] [facility] [address] [place] [address] PCP - General Sleep Medicine 04/30/21 Daryn Loo MD Referring Physician Internal Medicine 04/03/18 Sandy Emery MD Medical Oncologist/Metal Furrer Medical Oncology 06/17/20 Willie Choe MD [address] [place] [address] Consulting Physician Otolaryngology 08/17/20 Chapito Bejarano MD [address] [facility] [address] [place] [address] Referring Physician Vascular Surgery 02/16/21 documented as of this encounter
--- OUTSIDE RECORDS SUMMARY | 2024-07-03 09:15 | XMS_ITS | Encounter Summary ---
Author Organization [facility] Address [address] [place] [address] Phone Care Team Providers Care Admissions Gate Attendant Name Role Phone Daryn Loo MD Unavailable [phone] Aamir Echavarria MD Primary Care Provider [phone] Sandy Emery MD Unavailable [phone] Willie Choe MD Unavailable [phone] Chapito Bejarano MD Unavailable [phone] Mel Bolton MD Primary Care Provider [phone] Encounter Details Date Type Department Care Team (Latest Contact Info) Description 07/12/2020 Orders Only [facility] Scanning, Provider Social History Tobacco Use Types Packs/Day Years Used Date Smoking Tobacco: Former Smokeless Tobacco: Never Alcohol Use Standard Drinks/Week Comments Not Currently 0 (1 standard drink = 0.6 oz pur e alcohol) Sex and Gender Information Value Date Recorded Sex Assigned at Not on file Legal Sex Male 10:39 AM ASSURANCE SPECIALIST Gender Identity Male 02/02/2021 10:33 AM CDT Sexual Orientation Straight 10/29/2018 6: 40 AM CDT documented as of this encounter Plan of Treatment Not on file documented as of this encounter Procedures Procedure Name Priority Date/Time Associated Diagnosis Comments SCAN - LABS 07/12/2020 documented in this encounter Results * SCAN - LABS (07/12/2020) us Provider Scanning Final Result documented in this encounter Visit Diagnoses Not on filedocumented in this encounter Care Teams Admissions Gate Attendant Relationship Specialty Start Date End Date Aamir Echavarria MD PCP - General Internal Medicine 12/14/18 04/29/21 Mel Bolton MD [address] [facility] [address] [place], [place] [id number] PCP - General Sleep Medicine 04/30/21 Daryn Loo MD Referring Physician Internal Medicine 04/03/18 Sandy Emery MD Medical Oncologist/Internal Specialist Medical Oncology 06/17/20 Willie Choe MD [address] [place] [address] Consulting Physician Otolaryngology 08/17/20 Chapito Bejarano MD [address] [facility] [address] [place] [address] Referring Physician Vascular Surgery 02/16/21 documented as of this encounter
--- OUTSIDE RECORDS SUMMARY | 2024-07-03 09:15 | XMS_ITS | Referral Summary ---
Author Organization [facility] Address [address] [place] [address] Care Team Providers Care Upholsterer Assembly Line Name Role Phone Daryn Loo MD Unavailable [phone] Sandy Emery MD Unavailable Willie Choe MD Unavailable [phone] Chapito Bejarano MD Unavailable [phone] Mel Bolton MD Primary Care Provider Encounters Date Type Department Care Team Description 07/01/[address] [place] [phone] Kelly Peralta 07/01/2024 8:30 AM MATERIAL PLANNING ANALYST Office Visit [address] [phone] Randy Hardin NP Routine physical examination (Primary Dx); Chronic lymphocytic leukemia (HCC); Chronic obstructive pulmonary disease, unspecified COPD type (HCC); Obstructive sleep apnea syndrome; Major depressive disorder, recurrent, mild; Morbid obesity with BMI of 45.0-49.9, adult (HCC); Paroxysmal atrial fibrillation (HCC); Chronic heart failure with preserved ejection fraction (HCC); Benign essential tremor 06/04/2024 12:30 PM MATERIAL PLANNING ANALYST Telemedicine [facility] [address] [place] [phone] Wendy Galo NP COPD with acute exacerbation (HCC) (Primary Dx) 06/04/2024 Nurse Triage [place] [place] [address] [place] [phone] Mel Bolton MD 05/12/2024 Documentation [facility] [address] [place] [phone] Samira Omer RMA Appointment 05/12/2024 Telephone [facility] On[facility] [address] [place] [phone] Yandy Stoner RN 05/12/2024 Nurse Triage [place] [id number] [facility] [address] [place] [phone] Mel Bolton MD 04/29/2024 7:30 AM MATERIAL PLANNING ANALYST Office Visit [facility] On[facility] [address] [place] [phone] Sandy Emery MD Chronic lymphocytic leukemia (HCC) (Primary Dx) 04/14/[address] [place] [phone] Mel Bolton MD Symptom Based Call 04/14/2024 Documentation [facility] Oncology [address] [place] [phone] Samira Omer RMA Appointment from Last 3 Months Allergies No known active allergies Medications ipratropium (ATROVENT HFA) 17 mcg/actuation inhaler Inhale 2 puffs 03/14/20 17 Active fluticasone propionate (FLONASE) 50 mcg/actuation nasal spray fluticasone propionate 50 mcg/actuation nasal spray,suspension SPRAY 2 SPRAYS INTO EACH NOSTRIL EVERY DAY Active prochlorperazine (COMPAZINE) 10 mg tabletIndication s:Cancer Chemotherapy-Ind uced Nausea and Vomiting Take 1 tablet (10 mg total) by mouth every 6 (six) hours as needed for nausea or vomiting 60 tablet 2 11/07/19 22 Active traZODone (DESYREL) 50 mg tablet Take 1 tablet (50 mg total) by mouth daily 90 tablet 3 03/27/20 23 Active propranolol LA (INDERAL LA) 60 mg 24 hr capsule Take 1 capsule (60 mg total) by mouth daily 90 capsule 3 06/26/19 24 Active omeprazole (PriLOSEC) 40 mg capsule Take 1 capsule (40 mg total) by mouth daily 90 capsule 3 06/26/19 24 Active albuterol HFA (PROVENTIL HFA,VENTOLIN HFA,PROAIR HFA) 90 mcg/actuation inhaler Inhale 2 puffs every 6 (six) hours as needed for wheezing or shortness of breath 1 each 11 06/26/19 24 Active allopurinoL (ZYLOPRIM) 300 mg tablet Take 1 tablet (300 mg total) by mouth daily 90 tablet 3 08/05/19 24 025 Active pravastatin (PRAVACHOL) 40 mg tablet TAKE 1 TABLET(40 MG) BY MOUTH DAILY 90 tablet 3 08/08/19 24 Active furosemide (LASIX) 20 mg tablet Take 2 tablets (40 mg total) by mouth every morning 180 tablet 3 08/13/19 24 025 Active clopidogreL (PLAVIX) 75 mg tablet Take 1 tablet (75 mg total) by mouth daily 90 tablet 3 08/13/19 24 025 Active cyclobenzaprine (FLEXERIL) 10 mg tablet Take 1 tablet (10 mg total) by mouth 3 (three) times a day as needed for muscle spasms 30 tablet 10/16/19 24 Active ipratropium-albu teroL (DUO-NEB) 0.5-2.5 mg/3 mL nebulizer solutionIndicati ons:COPD with acute exacerbation (HCC) Take 3 mL by nebulization every 6 (six) hours as needed for wheezing or shortness of breath 75 mL 06/04/19 25 Active benzonatate (TESSALON) 100 mg capsuleIndicatio ns:Cough Take 1-2 capsules (100-200 mg total) by mouth 3 (three) times a day as needed for cough 90 capsule 07/02/19 25 Active metoprolol XL (TOPROL-XL) 25 mg extended release tablet Take 1 tablet (25 mg total) by mouth daily 100 tablet 1 07/03/19 25 026 Active ipratropium-albu teroL (DUO-NEB) 0.5-2.5 mg/3 mL nebulizer solution ipratropium 0.5 mg-albuterol 3 mg (2.5 mg base)/3 mL nebulization soln INHALE THE CONTENTS OF 1 VIAL Q 4 H PRF SHORTNESS OF BREATH OR WHEEZING 025 Discontinu ed(Reorder ) metoprolol XL (TOPROL-XL) 25 mg extended release tablet Take 1 tablet (25 mg total) by mouth daily 90 tablet 4 06/26/19 24 025 Discontinu ed(Reorder ) azithromycin (ZITHROMAX) 250 mg tabletIndication s:COPD with acute exacerbation (HCC) Take 2 tabs (500 mg) by mouth today, than 1 tab (250 mg) daily for 4 days. 6 tablet 06/04/19 25 025 benzonatate (TESSALON) 200 mg capsuleIndicatio ns:COPD with acute exacerbation (HCC) Take 1 capsule (200 mg total) by mouth 3 (three) times a day as needed for cough for up to 7 days 20 capsule 06/04/19 25 025 Active Problems Problem Noted Date Diagnosed Date Gastroesophageal reflux disease without esophagi tis 06/26/2023 Assessment & Plan (06/26/2023 10:25 AM MATERIAL PLANNING ANALYST): Chronic, stable, controlled on omeprazole. Continue current therapy. Rhinosinusitis 01/15/2023 Assessment & Plan (01/15/2023 1:20 PM CDT): Chronic, improved. Continue nasal saline, intranasal steroids. Paroxysmal atrial fibrillation 05/02/2022 Assessment & Plan (06/26/2023 10:24 AM MATERIAL PLANNING ANALYST): In sinus rhythm off antiarrhythmics. Continue metoprolol and monitor. Assessment & Plan (05/02/2022 9:23 PM MATERIAL PLANNING ANALYST): In sinus rhythm off antiarrhythmics. Continue metoprolol [...] 60mg daily. He will contact us via [facility] if he would like to increase it in the future Assessment & Plan (06/26/2023 10:22 AM MATERIAL PLANNING ANALYST): Chronic, improved but not fully controlled on current low-dose propranolol. Will increase propranolol to extended release 60 mg once daily. Metoprolol decreased to avoid bradycardia. Assessment & Plan (01/15/2023 1:20 PM CDT): Chronic, not currently on medication. Consider propranolol in future, though this may require an adjustment in his metoprolol to accommodate additional beta blockade. Assessment & Plan (05/02/2022 9:24 PM MATERIAL PLANNING ANALYST): Patient's description of tremor is most consistent with benign essential tremor. Trial of primidone, as tremor is increasingly problematic in patient's quality of life and ADLs. Hypertension, essential 05/02/2022 Assessment & Plan (06/26/2023 10:23 AM MATERIAL PLANNING ANALYST): Chronic, well controlled. Continue furosemide and metoprolol. Assessment & Plan (05/02/2022 9:24 PM MATERIAL PLANNING ANALYST): Chronic, well controlled. Continue furosemide and metoprolol. Chronic heart failure with preserved ejection fr action 05/02/2022 Assessment & Plan (06/26/2023 10:22 AM MATERIAL PLANNING ANALYST): Chronic, stable, euvolemic. Continue furosemide, metoprolol. Assessment & Plan (05/02/2022 9:24 PM MATERIAL PLANNING ANALYST): Chronic, stable, euvolemic. Continue furosemide. Peripheral vascular disease 11/06/2021 Assessment & Plan (06/26/2023 10:24 AM MATERIAL PLANNING ANALYST): Chronic, improved with intervention by vascular surgery. Continue antiplatelet therapy with clopidogrel, pravastatin. Continued management per Dr. Bejarano. Assessment & Plan (05/02/2022 9:22 PM MATERIAL PLANNING ANALYST): Chronic, improved with intervention by vascular surgery. Continue antiplatelet therapy with clopidogrel, pravastatin. Continued management per Dr. Bejarano. Assessment & Plan (11/06/2021 10:03 AM CDT): Chronic, improved with intervention by vascular surgery. Continue antiplatelet therapy with clopidogrel, pravastatin. Continued management per Dr. Bejarano. Morbid obesity with BMI of 45.0-49.9, adult 10/26 Assessment & Plan (06/26/2023 10:23 AM MATERIAL PLANNING ANALYST): Continue healthy weight loss effort. Assessment & Plan (01/15/2023 1:20 PM CDT): Continue healthy weight loss efforts. Assessment & Plan (05/02/2022 9:22 PM MATERIAL PLANNING ANALYST): Continue healthy weight loss efforts. Assessment & [...] diet soda. We discussed him seeing a hunter guide in future though he is not keen on this idea. We will revisit this if we are not seeing improvement in his weight at subsequent visit. Prediabetes 11/06/2021 Assessment & Plan (05/02/2022 9:23 PM MATERIAL PLANNING ANALYST): Chronic, stable. Labs today. Assessment & Plan [...] 07/03/2021 Assessment & Plan (06/26/2023 10:23 AM MATERIAL PLANNING ANALYST): Secondary to CLL. Monitor. Continue preventative measures including routine vaccines. Assessment & Plan (05/02/2022 9:22 PM MATERIAL PLANNING ANALYST): Secondary to CLL. Monitor. Continue preventative measures including routine vaccines. Preventative health care 05/09/2021 Assessment & Plan (06/26/2023 10:24 AM MATERIAL PLANNING ANALYST): He is morbidly obese based on his [...] yet. Assessment & Plan (05/02/2022 9:22 PM MATERIAL PLANNING ANALYST): From a preventative health standpoint, he is [...] yet. Assessment & Plan (05/09/2021 11:06 AM MATERIAL PLANNING ANALYST): From a preventative health standpoint, he is [...] 04/30/2021 Assessment & Plan (06/26/2023 10:23 AM MATERIAL PLANNING ANALYST): Chronic, stable, adequately controlled only with albuterol p.r.n.. Continue current regimen. Consider restarting maintenance inhaler therapy in future. Assessment & Plan (05/02/2022 9:20 PM MATERIAL PLANNING ANALYST): Chronic, stable. Now tobacco free. Continue Symbicort and p.r.n. rescue inhalers albuterol and ipratropium. Assessment & Plan (05/09/2021 11:04 AM MATERIAL PLANNING ANALYST): Chronic, stable. Now tobacco free. Continue Symbicort and p.r.n. rescue inhalers albuterol and ipratropium. If symptoms should worsen consider adding anti muscarinic. Major depressive disorder, recurrent, mild 04/30 Assessment & Plan (06/26/2023 10:23 AM MATERIAL PLANNING ANALYST): Chronic, stable, well controlled not currently on medication. Monitor. Assessment & Plan (05/02/2022 9:21 PM MATERIAL PLANNING ANALYST): Chronic, stable, well controlled. Continue low-dose sertraline 50 mg. Assessment & Plan (05/09/2021 11:04 AM MATERIAL PLANNING ANALYST): Chronic, in remission. Continue low-dose sertraline 50 mg. Coronary artery calcification 04/12/2021 Assessment & Plan (05/09/2021 11:05 AM MATERIAL PLANNING ANALYST): Chronic, stable. Continue antiplatelet therapy with Plavix. No aspirin due to Eliquis use. Continue pravastatin. Continue regular follow-up with Cardiology. Obstructive sleep apnea syndrome 01/31/2021 Personal history of nicotine dependence 12/30/19 21 Hypogammaglobulinemia 05/02/2020 Assessment & Plan (06/26/2023 10:23 AM MATERIAL PLANNING ANALYST): Chronic, in the setting of CLL. Monitor. Assessment & Plan (05/02/2022 9:20 PM MATERIAL PLANNING ANALYST): Chronic, in the setting of CLL. Monitor. Assessment & Plan (05/09/2021 11:03 AM MATERIAL PLANNING ANALYST): Chronic, in the setting of CLL. Continue to follow with Hematology-Oncology. Pulmonary infiltrates 03/02/2020 Chronic lymphocytic leukemia 02/13/2015 Assessment & Plan (06/26/2023 10:22 AM MATERIAL PLANNING ANALYST): Chronic, stable, without evidence of disease progression. Continue heme-onc follow up. Assessment & Plan (05/02/2022 9:20 PM MATERIAL PLANNING ANALYST): Chronic, stable. Continue heme-onc follow up. Assessment & Plan (05/09/2021 11:02 AM MATERIAL PLANNING ANALYST): Chronic. Continue to follow with Hematology-Oncology. Resolved Problems Problem Noted Date Diagnosed Date Resolved Date Atrial fibrillation, chronic 01/04/2021 05/02/2022 Overview (01/04/2021): Added automatically from request for surgery [id number] Assessment & Plan (05/09/2021 11:03 AM MATERIAL PLANNING ANALYST): Chronic, currently stable and rate controlled with metoprolol, rhythm controlled with flecainide, and anticoagulated with Eliquis. Proceed with EP consult to evaluate switching therapies. Immunizations Immunization Administration Dates Next Due Influenza, Quadrivalent, Karen l Culture-based MDCK, Preservative Free, Antibiotic Free, Intramuscular 01/11/2022 Influenza, Quadrivalent, Hig h Dose, Preservative Free, Intrr 02/07/2021 Influenza, Quadrivalent, Spl it, Intramuscular 02/26/2019,02/16/2016 Influenza, Quadrivalent, Spl it, Preservative Free, Intramuscular 01/06/2023,01/31/2020,04/13/2018 Influenza, Trivalent, Preser vative Free, Intramuscular 04/23/2024,02/27/2017,02/15/2015,03/23 Influenza, Unspecified 01/06/2023,2021,02/26/2021,02/07,02/01/2019 Moderna SARS-CoV-2 Monovalen t Vaccination (12+ YRS) 12/31/2020,12/31/2020,08/11/2020,08/11,07/14/2020,07/14/2020 Moderna Sars-cov-2 Bivalent Vaccine 50 Mcg/0.5 mL (12+ YRS)-Blue/Mc 01/11/2022 Pneumococcal Conjugate PCV 13 02/15/2015 Pneumococcal Conjugate Pcv20 01/06/2023 Pneumococcal Polysaccharide PPV23 04/05/2020,12/2015 RSV Vaccine, Pref, Recombina nt, Subunit, Adjuvanted, PF, IM (Arexvy) 04/23/2024 Tdap 04/29/2016 ZOSTER Recombinant 03/07/2023,01/06/2023 Social History Tobacco Use Types Packs/Day Years Used Date Smoking Tobacco: Former Cigarettes 0.8 15 S tarted: 1981 Smokeless Tobacco: Never Alcohol Use Standard Drinks/Week Comments Not Currently 0 (1 standard drink = 0.6 oz pur e alcohol) PHQ-2 Answer Date Recorded PHQ-2 Total Score (If total score is 3 or more points, staff should administer the PHQ-9) 0 07/01/2024 Sex and Gender Information Value Date Recorded Sex Assigned at Not on file Legal Sex Male 10:39 AM MATERIAL PLANNING ANALYST Gender Identity Male 02/02/2021 10:33 AM CDT Sexual Orientation Straight 10/29/2018 6: 40 AM CDT Last Filed Vital Signs Vital Sign Reading Time Taken Comments Blood Pressure 120/60 07/01/2024 8:13 AM MATERIAL PLANNING ANALYST Pulse 90 07/01/2024 8:13 AM MATERIAL PLANNING ANALYST Temperature 36.2 C (97.2 F) 07/01/2024 8:13 AM MATERIAL PLANNING ANALYST Respiratory Rate 20 07/01/2024 8:13 AM MATERIAL PLANNING ANALYST Oxygen Saturation 95% 07/01/2024 8:13 AM MATERIAL PLANNING ANALYST Inhaled Oxygen Concentration - - Weight 129.3 kg (285 lb) 07/01/2024 8:13 AM MATERIAL PLANNING ANALYST Height 167.6 cm (5' 6 ) 07/01/2024 8:13 AM MATERIAL PLANNING ANALYST Body Mass Index 46 07/01/2024 8:13 AM MATERIAL PLANNING ANALYST Plan of Treatment Not on file Medical Devices Implanted Type Area Alum Operator Device Identifier Shelf Expiration Date Model / Serial / Lot [employer] [id number] Xcela 8fr 1.6mm 1 Lumen Power Injectable Attach Catheter Fill - [id number] Implanted:Qty: 1 on 08/17/2018 at [facility] [employer] 12/28/2022 [id number] / / [id number] Procedures Procedure Name Priority Date/Time Associated Diagnosis Comments ERYTHROCYTE SEDIMENTATION RATE Routine 04/09/2024 9:56 AM MATERIAL PLANNING ANALYST Chronic lymphocytic leukemia (HCC) LACTATE DEHYDROGENASE Routine 04/09/2024 9:56 AM MATERIAL PLANNING ANALYST Chronic lymphocytic leukemia (HCC) COMPREHENSIVE METABOLIC PANEL Routine 04/09/2024 9:56 AM MATERIAL PLANNING ANALYST Chronic lymphocytic leukemia (HCC) CBC WITH AUTO DIFFERENTIAL Routine 04/09/2024 9:56 AM MATERIAL PLANNING ANALYST Chronic lymphocytic leukemia (HCC) PSA SCREEN Routine 07/11/2023 8:15 AM CDT Preventative health care HEPATITIS C ANTIBODY Routine Gen Lab 08/17/2018 4:52 PM CDT from Last 3 Months or Most Recently Relevant to Health Maintenance Results * (ABNORMAL) CBC with auto differential (04/09/2024 9:56 AM MATERIAL PLANNING ANALYST) WBC 8.1 3.8 - 10.8 Thousand/u L [facility] RBC, POC 4.86 4.20 - 5.80 Million/uL [facility] Hgb 15.1 13.2 - 17.1 g/dL [facility] Hct 47.5 38.5 - 50.0 % [facility] MCV 97.7 80.0 - 100.0 fL [facility] MCH 31.1 27.0 - 33.0 pg [facility] MCHC 31.8(L) 32.0 - 36.0 g/dL [facility] Comment: For adults, a slight decrease in the calculated MCHC value (in the range of 30 to 32 g/dL) is most likely not clinically significant; however, it should be interpreted with caution in correlation with other red cell parameters and the patient's clinical condition. Rdw 13.7 11.0 - 15.0 % [facility] Platelets 222 140 - 400 Thousand/u L [facility] MPV 10.9 7.5 - 12.5 fL [facility] Neutrophils, abs 4,123 1,500 - 7,800 cells/uL [facility] Lymphocytes, abs 2,940 850 - 3,900 cells/uL [facility] Monocyte abs 834 200 - 950 cells/uL [facility] Eosinophils, abs 130 15 - 500 cells/uL [facility] Basophils, abs 73 0 - 200 cells/uL [facility] Neutrophils 50.9 % [facility] Lymphocyte pct 36.3 % [facility] Monocytes 10.3 % [facility] Eosinophils 1.6 % [facility] Basophils 0.9 % [facility] Blood 04/09/2024 9:56 AM MATERIAL PLANNING ANALYST 04/09/2024 9:57 AM MATERIAL PLANNING ANALYST us Sandy Emery MD LAB BLOOD ORDERABLES Final Result [facility] [address] [place] [address] * Erythrocyte sedimentation rate (04/09/2024 9:56 AM MATERIAL PLANNING ANALYST) Erythrocyte sedimentation rate 2 < OR = 20 mm/h [facility] Blood 04/09/2024 9:56 AM MATERIAL PLANNING ANALYST 04/09/2024 9:57 AM MATERIAL PLANNING ANALYST Sandy Emery MD LAB BLOOD ORDERABLES Final Result Performing Organization Address [facility] Co de Phone Number [facility] [address] [place] [address] * Lactate dehydrogenase (LD) (04/09/2024 9:56 AM MATERIAL PLANNING ANALYST) Pathologist [facility] Lactate dehydrogenase (LDH) 131 120 - 250 U/L [email or web address] Blood 04/09/2024 9:56 AM MATERIAL PLANNING ANALYST 04/09/2024 9:57 AM MATERIAL PLANNING ANALYST Sandy Emery MD LAB BLOOD ORDERABLES Final Result Performing Organization Address [facility] de Phone Number [email or web address] [address] [place] [address] * (ABNORMAL) Comprehensive metabolic panel (04/09/2024 9:56 AM MATERIAL PLANNING ANALYST) Pathologist [facility] Glucose 112(H) 65 - 99 mg/dL [facility] Comment: Fasting reference interval For someone without known diabetes, a glucose value between 100 and 125 mg/dL is consistent with prediabetes and should be confirmed with a follow-up test. BUN 19 7 - 25 mg/dL [facility] Creatinine 0.91 0.70 - 1.35 mg/dL [facility] eGFR 95 > OR = 60 mL/min/1.7 3m2 [facility] BUN/creat ratio SEE NOTE: 6 - 22 (calc) [email or web address] Comment: Not Reported: BUN and Creatinine are within reference range. Sodium 143 135 - 146 mmol/L [facility] Potassium, pl 4.2 3.5 - 5.3 mmol/L [facility] Chloride 103 98 - 110 mmol/L [facility] CO2 32 20 - 32 mmol/L [facility] Calcium 8.9 8.6 - 10.3 mg/dL [facility] Protein, sr 6.2 6.1 - 8.1 g/dL [facility] Albumin 4.3 3.6 - 5.1 g/dL [facility] GLOBULIN 1.9 1.9 - 3.7 g/dL (calc) [facility] Alb/glob ratio 2.3 1.0 - 2.5 (calc) [facility] Bilirubin, total 0.6 0.2 - 1.2 mg/dL [facility] Alk phos 61 35 - 144 U/L [facility] AST 13 10 - 35 U/L [facility] ALT (SGPT) 20 9 - 46 U/L [facility] Blood 04/09/2024 9:56 AM MATERIAL PLANNING ANALYST 04/09/2024 9:57 AM MATERIAL PLANNING ANALYST us Sandy Emery MD LAB BLOOD ORDERABLES Final Result Performing Organization Address [facility]/State/ZIP Co de Phone Number [employer] [address] [place] [address] * PSA screen (07/11/2023 8:15 AM CDT) PSA 0.77 < OR = 4.00 ng/mL [email or web address] Comment: The total PSA value from this assay system is standardized against the WHO standard. The test result will be approximately 20% lower when compared to the equimolar-standardized total PSA (Lorenzo Panchito). Comparison of serial PSA results should be interpreted with this fact in mind. This test was performed using the Siemens chemiluminescent method. Values obtained from different assay methods cannot be used interchangeably. PSA levels, regardless of value, should not be interpreted as absolute evidence of the presence or absence of disease. Blood 07/11/2023 8:15 AM CDT 07/11/2023 8:15 AM CDT Mel Bolton MD LAB BLOOD ORDERABLES Final Re sult [email or web address] [address] [phone] * Hepatitis C antibody (08/17/2018 4:52 PM CDT) Hep C Ab Nonreactive Nonreactive [facility] Comment: Interpretive Data Positive results should be confirmed by a molecular method. If positive, a second separately collected sample should be submitted for Hepatitis C Virus (HCV) RNA Detection and Quantitation by Real-Time Reverse Sales Recruiting Coordinator-PCR (RT-PCR). Current interpretive data was last revised on 2016. Blood specimen (specimen) 08/17/2018 4:52 PM CDT 08/17/2018 8:38 PM CDT Narrative [facility] - 08/18/2018 10:46 AM CDT Sandy Emery MD LAB MICROBIOLOGY - GENERAL ORDERABLES Edited Result - Final [facility] Department [place] [address] from Last 3 Months or Most Recently Relevant to Health Maintenance Insurance [facility] [employer] Advance Directives For more information, please contact: [phone] * Full Code (Latest Code Status on File) Date Activated Date Inactivated Comments 04/01/2019 9:26 AM 04/01/2019 2:30 PM * Full Code Date Activated Date Inactivated Comments 08/17/2018 1:14 PM 08/17/2018 7:55 PM Care Teams Upholsterer Assembly Line Relationship Specialty Start Date End Date Mel Bolton MD [address] [place] [address] PCP - General Sleep Medicine 04/30/21 Daryn Loo MD Referring Physician Internal Medicine 04/03/18 Sandy Emery MD Medical Oncologist/Dial Printer Medical Oncology 06/17/20 Willie Choe MD [address] [place] [address] Consulting Physician Otolaryngology 08/17/20 Chapito Bejarano MD [address] [place] [id number] Referring Physician Vascular Surgery 02/16/21
--- OUTSIDE RECORDS SUMMARY | 2024-07-03 09:15 | XMS_ITS | Patient Health Summary ---
Author Organization [facility] Address [address] 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 This disclosure is being madepursuant to the Care Everywhere program and may not contain all information available regarding this patient. Last updated 18.[facility] Allergies No known active allergies Medications * Be aware that medications may not be up to date on this document. Alwaysverify current medications with the patient. * omeprazole (PRILOSEC) 40 MG capsule Take 40 mg by mouth daily before breakfast * multivitamin daily (THERAGRAN) tablet Take 2 Tabs by mouth daily with food * albuterol HFA (PROVENTIL;VENTOLIN;PROAIR) 108 (90 BASE) MCG/ACT inhaler (Started 03/14/2017) Inhale 2 puffs by mouth every 4 hours as needed for Shortness of Breath, Wheezing or Cough Reasons:Chronic Obstructive Lung Disease * ipratropium hfa (ATROVENT HFA) 17 MCG/ACT inhaler(Started 03/14/2017) Inhale 2 puffs by mouth 4 times daily Reasons: Chronic Obstructive Lung Disease Active Problems No known active problems Social History Tobacco Use Types Packs/Day Years Used Date Smoking Tobacco: Former Smokeless Tobacco: Never Alcohol Use Standard Drinks/Week Comments No 0 (1 standard drink = 0.6 oz pur e alcohol) Sex and Gender Information Value Date Recorded Sex Assigned at Not on file Gender Identity Not on file Sexual Orientation Not on file Last Filed Vital Signs Vital Sign Reading Time Taken Comments Blood Pressure 125/75 08/01/2017 9:50 AM CDT Pulse 55 08/01/2017 9:50 AM CDT Temperature 37.3 C (99.1 F) 03/14/2017 9:49 AM REGISTERED DENTAL ASSISTANT Respiratory Rate 18 08/01/2017 9:50 AM CDT Oxygen Saturation 96% 08/01/2017 9:50 AM CDT Inhaled Oxygen Concentration 100% 12:43 PM REGISTERED DENTAL ASSISTANT Weight 109.2 kg (240 lb 11.2 oz) 2017 10:00 AM CDT Height 167.6 cm (5' 6 ) 08/01/2017 10:0 0 AM CDT Body Mass Index 38.85 08/01/2017 10:00 AM CDT Medical Devices Implanted Type Area Marble Polisher Device Identifier Shelf Expiration Date Model / Serial / Lot Evicel Implanted:Qty: 1 on 06/25/2016 by Emmett Moffett MD at [facility] N/A: Abdomen [employer] 10/25/2017 [id number] / / [id number] Procedures * VAS BILATERAL VENOUS DUPLEX LE(Performed 02/06/2021) Performed for Right leg pain, Localized edema, Left leg pain * CARDIAC STRESS TEST ORDER(Performed 06/27/2016) * CARDIAC RHYTHM STRIP ORDER(Performed 06/27/2016) * CARDIAC EKG ORDER(Performed 06/27/2016) * CARDIAC ECHOCARDIOGRAM COMPLETE ORDER(Performed 06/27/2016) * GLUCOSE - POINT OF CARE(Performed 06/26/2016) * GLUCOSE - POINT OF CARE(Performed 06/26/2016) * GLUCOSE - POINT OF CARE(Performed 06/26/2016) * FL FLUORO UPPER GI WATER SOLUBLE(Performed 06/26/2016) Performed for Morbid obesity due to excess calories (HCC) * GLUCOSE - POINT OF CARE(Performed 06/26/2016) * GLUCOSE - POINT OF CARE(Performed 06/26/2016) * PATHOLOGY PERIPHERAL SMEAR REVIEW(Performed 06/26/2016) * DIFFERENTIAL MANUAL(Performed 06/26/2016) * PHOSPHORUS BLOOD(Performed 06/26/2016) * MAGNESIUM BLOOD(Performed 06/26/2016) * COMPREHENSIVE METABOLIC PANEL(Performed 06/26/2016) * CBC W AUTO DIFFERENTIAL(Performed 06/26/2016) * GLUCOSE - POINT OF CARE(Performed 06/26/2016) * MAGNESIUM BLOOD(Performed 06/25/2016) * GLUCOSE - POINT OF CARE(Performed 06/25/2016) * GLUCOSE - POINT OF CARE(Performed 06/25/2016) * MRSA DNA PCR(Performed 06/25/2016) * DIFFERENTIAL MANUAL(Performed 06/25/2016) * PHOSPHORUS BLOOD(Performed 06/25/2016) * MAGNESIUM BLOOD(Performed 06/25/2016) * COMPREHENSIVE METABOLIC PANEL(Performed 06/25/2016) * CBC W AUTO DIFFERENTIAL(Performed 06/25/2016) * OXYGEN(Performed 06/25/2016) * GROSS + MICRO EXAM (ILL)(Performed 06/25/2016) Performed for Morbid obesity due to excess calories (HCC) * LAPAROSCOPIC GASTRECTOMY (LONGITUDINAL/SLEEVE)(Performed 06/25/2016) Performed for Morbid obesity due to excess calories (HCC) * EKG 12-LEAD(Performed 06/21/2016) Performed for Gastroesophageal reflux disease without esophagitis * BLOOD TYPE VERIFICATION(Performed 06/21/2016) * TYPE + SCREEN PANEL(Performed 06/21/2016) Results * VAS BILATERAL VENOUS DUPLEX LE (02/06/2021 1:44 PM CDT) Anatomical Region Laterality Modality Lower Extremity Ultrasound 02/06/2021 12:0 1 PM CDT Narrative 02/07/2021 4:17 PM CDT [facility] Venous Reflux Pat.Name: ALENA CONSTANTINO JR. Pat.ID: [id number] .Date: 02/06/2021 Exam Time: 12:01:00 PM Study Type:Venous Reflux Age: 4 1960,60Y Sex: MALE Sonogrphr: Esvin Singh RVVikas Pat. Stat.:Outpatient Reason for Study: Pain -Leg, bilateral, R60.0, Localized edema History / Clinical: COPD Procedures: Venous Reflux Complete - Bilateral Race: 2 Visit ID: [id number] ++++++++++++++++++++++++++++++++++++ SUMMARY: ++++++++++++++++++++++++++++++++++++ Right: No deep venous thrombosis identified. No pathologic reflux of the deep venous system. Pathologic reflux of the great saphenous vein. Small saphenous vein not identified. Left: No deep venous thrombosis identified. No pathologic reflux of the deep venous system. Pathologic reflux of the great saphenous vein. Small saphenous vein not identified ++++++++++++++++++++++++++++++++++++ FINDINGS: ++++++++++++++++++++++++++++++++++++ Procedure: B-mode imaging and color flow was used in the standing position with a rapid inflation/deflation cuff. Study Quality: This study is of adequate technical quality. Reflux Rt: No Acute DVT seen. All vessels seen appear patent and compressible. No physiological / pathological reflux seen in the right lower extremity deep venous system. Doppler signals demonstrate venous valvular insufficiency/incompetence greater than 500 msec of the great saphenous vein at the proximal calf. Great saphenous vein measures 5.9 mm at the saphenofemoral junction, 4.7 mm at the proximal thigh and 3.5 mm at the knee in transverse diameter. No small saphenous vein seen. Reflux Lt: No Acute DVT seen. All vessels seen appear patent and compressible. No physiological / pathological reflux seen in the left lower extremity deep venous system. Doppler signals demonstrate venous valvular insufficiency/incompetence greater than 500 msec of the great saphenous vein from the knee to the distal calf. Great saphenous vein measures 5.9 mm at the saphenofemoral junction, 4.3 mm at the proximal thigh and 2.5 mm at the knee in transverse diameter. No small saphenous vein seen. ++++++++++++++++++++++++++++++++++++ MEASUREMENTS: ++++++++++++++++++++++++++++++++++++ DOPPLER DIST GSV TH SHARA Left DIST GSV T 3.42 mm Right DIST GSV 4.03 mm Dst GSV Calf T Left Dst GSV Ca 3631 ms Right Dst GSV C 191 ms DST GSV CLF SHARA Left DST GSV CL 1.78 mm Right DST GSV C 2.91 mm Dst GSV Thigh T Left Dst GSV Th 205 ms Right Dst GSV T 235 ms GSV KNEE DIAM Left GSV KNEE D 2.49 mm Right GSV KNEE 3.47 mm GSV KNEE T Left GSV KNEE T 4944 ms Right GSV KNEE 242 ms Mid GSV Calf T Left Mid GSV Ca 3433 ms Right Mid GSV C 213 ms Left Mid GSV Ca 3385 ms MID GSV CLF SHARA Left MID GSV CL 2.38 mm Right MID GSV C 2.83 mm MID GSV TH DIAM Left MID GSV TH 4.03 mm Right MID GSV T 4.7 mm Left MID GSV TH 3.79 mm Mid GSV Thigh T Left Mid GSV Th 330 ms Right Mid GSV T 367 ms Left Mid GSV Th 403 ms Prx GSV Calf T Left Prx GSV Ca 3499 ms Right Prx GSV C 1592 ms PRX GSV CLF SHARA Left PRX GSV CL 2.1 mm Right PRX GSV C 2.66 mm PRX GSV TH DIAM Left PRX GSV TH 5.93 mm Right PRX GSV T 4.71 mm Left PRX GSV TH 4.32 mm Prx GSV Thigh T Left Prx GSV Th 396 ms Right Prx GSV T 279 ms Left Prx GSV Th 301 ms SFJ DIAM Right SFJ DIAM 5.96 mm SFJ T Right SFJ T Dop 213 ms Signed 02/07/2021 04:17 PM Emeka Fraga MD, RPVI Procedure Note Emeka Fraga MD - 02/08/2021 [facility] Venous Reflux Pat.Name: ALENA CONSTANTINO JR. Pat.ID: [id number] .Date: 02/06/2021 Exam Time: 12:01:00 PM Study Type:Venous Reflux Age: 4 1960,60Y Sex: MALE Sonogrphr: JoCarol Black, RVT Pat. Stat.:Outpatient Reason for Study: Pain -Leg, bilateral, R60.0, Localized edema History / Clinical: COPD Procedures: Venous Reflux Complete - Bilateral Race: 2 Visit ID: [id number] ++++++++++++++++++++++++++++++++++++ SUMMARY: ++++++++++++++++++++++++++++++++++++ Right: No deep venous thrombosis identified. No pathologic reflux of the deep venous system. Pathologic reflux of the great saphenous vein. Small saphenous vein not identified. Left: No deep venous thrombosis identified. No pathologic reflux of the deep venous system. Pathologic reflux of the great saphenous vein. Small saphenous vein not identified ++++++++++++++++++++++++++++++++++++ FINDINGS: ++++++++++++++++++++++++++++++++++++ Procedure: B-mode imaging and color flow was used in the standing position with a rapid inflation/deflation cuff. Study Quality: This study is of adequate technical quality. Reflux Rt: No Acute DVT seen. All vessels seen appear patent and compressible. No physiological / pathological reflux seen in the right lower extremity deep venous system. Doppler signals demonstrate venous valvular insufficiency/incompetence greater than 500 msec of the great saphenous vein at the proximal calf. Great saphenous vein measures 5.9 mm at the saphenofemoral junction, 4.7 mm at the proximal thigh and 3.5 mm at the knee in transverse diameter. No small saphenous vein seen. Reflux Lt: No Acute DVT seen. All vessels seen appear patent and compressible. No physiological / pathological reflux seen in the left lower extremity deep venous system. Doppler signals demonstrate venous valvular insufficiency/incompetence greater than 500 msec of the great saphenous vein from the knee to the distal calf. Great saphenous vein measures 5.9 mm at the saphenofemoral junction, 4.3 mm at the proximal thigh and 2.5 mm at the knee in transverse diameter. No small saphenous vein seen. ++++++++++++++++++++++++++++++++++++ MEASUREMENTS: ++++++++++++++++++++++++++++++++++++ DOPPLER DIST GSV TH SHARA Left DIST GSV T 3.42 mm Right DIST GSV 4.03 mm Dst GSV Calf T Left Dst GSV Ca 3631 ms Right Dst GSV C 191 ms DST GSV CLF SHARA Left DST GSV CL 1.78 mm Right DST GSV C 2.91 mm Dst GSV Thigh T Left Dst GSV Th 205 ms Right Dst GSV T 235 ms GSV KNEE DIAM Left GSV KNEE D 2.49 mm Right GSV KNEE 3.47 mm GSV KNEE T Left GSV KNEE T 4944 ms Right GSV KNEE 242 ms Mid GSV Calf T Left Mid GSV Ca 3433 ms Right Mid GSV C 213 ms Left Mid GSV Ca 3385 ms MID GSV CLF SHARA Left MID GSV CL 2.38 mm Right MID GSV C 2.83 mm MID GSV TH DIAM Left MID GSV TH 4.03 mm Right MID GSV T 4.7 mm Left MID GSV TH 3.79 mm Mid GSV Thigh T Left Mid GSV Th 330 ms Right Mid GSV T 367 ms Left Mid GSV Th 403 ms Prx GSV Calf T Left Prx GSV Ca 3499 ms Right Prx GSV C 1592 ms PRX GSV CLF SHARA Left PRX GSV CL 2.1 mm Right PRX GSV C 2.66 mm PRX GSV TH DIAM Left PRX GSV TH 5.93 mm Right PRX GSV T 4.71 mm Left PRX GSV TH 4.32 mm Prx GSV Thigh T Left Prx GSV Th 396 ms Right Prx GSV T 279 ms Left Prx GSV Th 301 ms SFJ DIAM Right SFJ DIAM 5.96 mm SFJ T Right SFJ T Dop 213 ms Signed 02/07/2021 04:17 PM Emeka Fraga MD, RPVI Chapito Bejarano MD VASCULAR LAB ORDERAB LES * CARDIAC STRESS TEST ORDER (06/27/2016 10:27 AM REGISTERED DENTAL ASSISTANT) Narrative 06/27/2016 10:27 AM REGISTERED DENTAL ASSISTANT Ordered by an unspecified provider. Scanned Document CARDIAC SERVICES ORD ERABLES * CARDIAC RHYTHM STRIP ORDER (06/27/2016 10:26 AM REGISTERED DENTAL ASSISTANT) Narrative 06/27/2016 10:26 AM REGISTERED DENTAL ASSISTANT Ordered by an unspecified provider. Scanned Document CARDIAC SERVICES ORD ERABLES * CARDIAC EKG ORDER (06/27/2016 10:26 AM REGISTERED DENTAL ASSISTANT) Narrative 06/27/2016 10:26 AM REGISTERED DENTAL ASSISTANT Ordered by an unspecified provider. Scanned Document CARDIAC SERVICES ORD ERABLES * CARDIAC ECHOCARDIOGRAM COMPLETE ORDER (06/27/2016 10:26 AM REGISTERED DENTAL ASSISTANT) Narrative 06/27/2016 10:26 AM REGISTERED DENTAL ASSISTANT Ordered by an unspecified provider. Scanned Document ECHO ORDERABLES * GLUCOSE - POINT OF CARE (06/26/2016 4:20 PM REGISTERED DENTAL ASSISTANT) Only the most recent of8 resultswithin the time period is included. [facility] Glucose WB/POC 100 70 - 125 mg/dL 06/26/2016 4:52 PM REGISTERED DENTAL ASSISTANT [facility] Blood BLOOD SPECIMEN / Unknown 06/26/2016 4:20 PM REGISTERED DENTAL ASSISTANT 06/26/2016 4:52 PM REGISTERED DENTAL ASSISTANT Narrative [facility] - 06/26/2016 4:52 PM REGISTERED DENTAL ASSISTANT NOTIFIED CAREGIVER Emmett Moffett MD LAB - POINT OF CARE ORDERABLES Performing Organization Address [facility] [place]/State/[facility] Co de Phone Number [facility] [address] * UPPER GI GASTROGRAFFIN (06/26/2016 9:14 AM REGISTERED DENTAL ASSISTANT) Anatomical Region Laterality Modality Abdomen Radio Fluoroscop y 06/26/2016 9:35 AM REGISTERED DENTAL ASSISTANT Impressions 06/26/2016 9:48 AM REGISTERED DENTAL ASSISTANT Please see discussion above. Narrative 06/26/2016 9:48 AM REGISTERED DENTAL ASSISTANT UGI 06/26/2016 CLINICAL HISTORY: Status post gastric sleeve resection. FLUOROSCOPY: 0.5 minutes, 16 fluoro images. FINDINGS: Patient is status post gastric sleeve resection. No evidence of extravasation, leakage or obstruction. No surgery-related complications. Procedure Note Miguel Angel Zazueta MD - 06/26/2016 UGI 06/26/2016 CLINICAL HISTORY: Status post gastric sleeve resection. FLUOROSCOPY: 0.5 minutes, 16 fluoro images. FINDINGS: Patient is status post gastric sleeve resection. No evidence of extravasation, leakage or obstruction. No surgery-related complications. IMPRESSION Please see discussion above. Emmett Moffett MD FLUOROSCOPY ORDERABL ES * PATHOLOGY PERIPHERAL SMEAR REVIEW (06/26/2016 3:39 AM REGISTERED DENTAL ASSISTANT) Case Report Pathology Interpretation Report Case: [id number] Authorizing Provider: Emmett Moffett MD Collected: 06/26/2016 03:39 AM Ordering Location: [facility] 2 ICU Received: 06/26/2016 01:00 PM Pathologist: Giovanni Mcpherson MD Specimen: Blood, # [id number] 06/26/2016 4:32 PM REGISTERED DENTAL ASSISTANT [facility] Final Diagnosis PERIPHERAL BLOOD, VENIPUNCTURE, SMEAR EVALUATION: - ATYPICAL LYMPHOCYTOSIS, MORPHOLOGICALLY CONSISTENT WITH CHRONIC LYMPHOCYTIC LEUKEMIA. COMMENT: No increase of prolymphocytes is seen. 06/26/2016 4:32 PM REGISTERED DENTAL ASSISTANT [facility] Peripheral Smear Description The smear was referred for evaluation due to abnormal differential. Evaluation of the Arita stained smear confirms lymphocytosis (95%) with a preponderance of large atypical maturing lymphocytes (95% of lymphocytes) with inconspicuous nucleoli. The morphologic features are consistent with chronic lymphocytic leukemia. No increase of prolymphocytes is seen. No blasts are seen. 06/26/2016 4:32 PM REGISTERED DENTAL ASSISTANT [facility] Blood BLOOD SPECIMEN / Unknown Lab Venipuncture / Unknown 06/26/2016 3:39 AM REGISTERED DENTAL ASSISTANT 06/26/2016 1:00 PM REGISTERED DENTAL ASSISTANT Emmett Moffett MD LAB - PATHOLOGY/CYTO LOGY ORDERABLES Performing Organization Address City/State/[facility] Co de Phone Number [facility] [address] * (ABNORMAL) DIFFERENTIAL MANUAL (06/26/2016 3:39 AM REGISTERED DENTAL ASSISTANT) Only the most recent of2 resultswithin the time period is included. WBC Auto 106.9(HH) 4.0 - 10.0 x10E9/L 06/26/2016 10:01 AM [facility] Neutrophils % Manual 10(L) 40 - 75 % 06/26/2016 10:01 AM [facility] Lymphocytes % Manual 89(H) 19 - 53 % 06/26/2016 10:01 AM [facility] Monocytes % Manual 1(L) 5 - 13 % 06/26/2016 10:01 AM [facility] Neutrophils Absolute Manual 10.7(H) 1.6 - 6.1 x10E3/uL 06/26/2016 10:01 AM [facility] Lymphocytes Absolute Manual 95.1(H) 1.2 - 3.7 x10E3/uL 06/26/2016 10:01 AM [facility] Monocytes Absolute Manual 1.1(H) 0.2 - 0.9 x10E3/uL 06/26/2016 10:01 AM [facility] Cells Counted 100 # cells 06/26/2016 10:01 AM [facility] Path Review Hematology Slide sent for Path review 06/26/2016 10:01 AM [facility] Platelet Estimation Adequate platelets Normal, Adequate platelets 06/26/2016 10:01 AM [facility] RBC Morphology Normal 06/26/2016 10:01 AM [facility] Lymphocyte Reactive 2+(A) None 06/26/2016 10:01 AM [facility] Blood BLOOD SPECIMEN / Unknown Lab Venipuncture / Unknown 06/26/2016 3:39 AM REGISTERED DENTAL ASSISTANT 06/26/2016 4:45 AM [facility] Emmett Moffett MD LAB - HEMATOLOGY ORD ERABLES Performing Organization Address City/State/[facility] Co de Phone Number [facility] [address] * (ABNORMAL) CBC W AUTO DIFFERENTIAL (06/26/2016 3:39 AM [facility]) Only the most recent of2 resultswithin the time period is included. [facility] WBC 106.9(HH) 4.0 - 10.0 x10E9/L 06/26/2016 5:18 AM [facility] Comment:Rechecked RBC 4.56 4.40 - 6.10 x10E12/L 06/26/2016 5:18 AM [facility] Hemoglobin 13.8 13.7 - 17.5 gm/dL 06/26/2016 5:18 AM [facility] Hematocrit 41.6 40.1 - 51.0 % 06/26/2016 5:18 AM [facility] MCV 91.2 78.0 - 100.0 fl 06/26/2016 5:18 AM [facility] MCH 30.3 25.6 - 34.0 pg 06/26/2016 5:18 AM [facility] MCHC 33.2 32.3 - 36.5 gm/dL 06/26/2016 5:18 AM [facility] RDW 13.3 11.6 - 14.4 % 06/26/2016 5:18 AM [facility] MPV 10.3 9.4 - 12.4 fl 06/26/2016 5:18 AM [facility] Platelet Count 222 163 - 369 x10E9/L 06/26/2016 5:18 AM [facility] Immature Granulocytes 0.6(H) 0 - 0.5 % 06/26/2016 5:18 AM [facility] Immature Granulocytes Absolute 0.59(H) 0 - 0.03 x10E9/L 06/26/2016 5:18 AM [facility] nRBC Auto 0 <=0 /100 WBC 06/26/2016 5:18 AM [facility] Hematology Reflex Status Manual Diff to follow 06/26/2016 5:18 AM [facility] Blood BLOOD SPECIMEN / Unknown Lab Venipuncture / Unknown 06/26/2016 3:39 AM REGISTERED DENTAL ASSISTANT 06/26/2016 4:45 AM [facility] Emmett Moffett MD LAB - HEMATOLOGY ORD ERABLES Performing Organization Address [facility] [place]/State/[facility] Co de Phone Number [facility] [address] * (ABNORMAL) COMPREHENSIVE METABOLIC PANEL (06/26/2016 3:39 AM [facility]) Only the most recent of2 resultswithin the time period is included. Glucose 130(H) 70 - 125 mg/dL 06/26/2016 5:11 AM [facility] Sodium 135(L) 136 - 145 mmol/L 06/26/2016 5:11 AM [facility] Potassium 4.7(H) 3.4 - 4.5 mmol/L 06/26/2016 5:11 AM [facility] Chloride 102 98 - 107 mmol/L 06/26/2016 5:11 AM [facility] CO2 23 22 - 29 mmol/L 06/26/2016 5:11 AM [facility] Calcium 8.3(L) 8.4 - 10.2 mg/dL 06/26/2016 5:11 AM [facility] Anion Gap 15 10 - 20 mmol/L 06/26/2016 5:11 AM [facility] BUN 14.6 8.4 - 25.7 mg/dL 06/26/2016 5:11 AM [facility] Creatinine 1.14 0.72 - 1.25 mg/dL 06/26/2016 5:11 AM [facility] eGFR by MDRD >60 >60 mL/min/1.7 3m2 06/26/2016 5:11 AM [facility] eGFR by MDRD >60 >60 mL/min/1.7 3m2 06/26/2016 5:11 AM [facility] Alkaline Phosphatase 67 40 - 150 U/L 06/26/2016 5:11 AM [facility] ALT 24 5 - 55 U/L 06/26/2016 5:11 AM [facility] AST 25 5 - 34 U/L 06/26/2016 5:11 AM [facility] Protein Total 6.7 6.4 - 8.3 gm/dL 06/26/2016 5:11 AM [facility] Albumin 3.8 3.5 - 5.0 gm/dL 06/26/2016 5:11 AM [facility] Globulin Total 2.9 2.6 - 4.0 gm/dL 06/26/2016 5:11 AM [facility] Albumin/Globulin Ratio 1.3 0.9 - 1.6 06/26/2016 5:11 AM [facility] Bilirubin Total 0.3 0.2 - 1.2 mg/dL 06/26/2016 5:11 AM [facility] Blood BLOOD SPECIMEN / Unknown Lab Venipuncture / Unknown 06/26/2016 3:39 AM REGISTERED DENTAL ASSISTANT 06/26/2016 4:44 AM [facility] Emmett Moffett MD LAB - CHEMISTRY [facility] Organization Address City/State/[facility] Co de Phone Number [facility] [address] * PHOSPHORUS BLOOD (06/26/2016 3:39 AM REGISTERED DENTAL ASSISTANT) Only the most recent of2 resultswithin the time period is included. Phosphorus 3.4 2.3 - 4.7 mg/dL 06/26/2016 5:11 AM REGISTERED DENTAL ASSISTANT [facility] Blood BLOOD SPECIMEN / Unknown Lab Venipuncture / Unknown 06/26/2016 3:39 AM REGISTERED DENTAL ASSISTANT 06/26/2016 4:44 AM REGISTERED DENTAL ASSISTANT Emmett Moffett MD LAB - CHEMISTRY [facility]ID WADDELL Performing Organization Address [facility] [place]/[facility] Co de Phone Number [facility] [address] * MAGNESIUM BLOOD (06/26/2016 3:39 AM REGISTERED DENTAL ASSISTANT) Only the most recent of3 resultswithin the time period is included. Magnesium 2.3 1.6 - 2.6 mg/dL 06/26/2016 5:11 AM REGISTERED DENTAL ASSISTANT [facility] Blood BLOOD SPECIMEN / Unknown Lab Venipuncture / Unknown 06/26/2016 3:39 AM REGISTERED DENTAL ASSISTANT 06/26/2016 4:44 AM REGISTERED DENTAL ASSISTANT Emmett Moffett MD LAB - CHEMISTRY DAVID WADDELL Performing Organization Address [facility]/[facility] Co de Phone Number [facility] [address] [place] [address] * MRSA DNA BY PCR (06/25/2016 3:17 PM REGISTERED DENTAL ASSISTANT) MRSA DNA by PCR Negative Negative 06/25/2016 5:29 PM REGISTERED DENTAL ASSISTANT [facility] Microbiology SPECIMEN FROM NASAL FOSSAE / Unknown 06/25/2016 3:17 PM REGISTERED DENTAL ASSISTANT 06/25/2016 4:00 PM REGISTERED DENTAL ASSISTANT Narrative [facility] - 06/25/2016 5:29 PM REGISTERED DENTAL ASSISTANT Methicillin-resistant Staphylococcus aureus (MRSA) DNA is not detected (presumed not colonized with MRSA). Emmett Moffett MD LAB - MICROBIOLOGY O RDERABLES Performing Organization Address [facility]/[facility] Co de Phone Number [facility] [address] [place] [address] * GROSS + MICRO EXAM (ILL) (06/25/2016 11:58 AM [facility]) Case Report Surgical Pathology Report Case: [id number] Authorizing Provider: Emmett Moffett MD Collected: 06/25/2016 11:58 AM Ordering Location: [facility] Received: 06/25/2016 01:25 PM Pathologist: Giovanni Mcpherson MD Specimen: Stomach Resect Sub, stomach remnant- sleeve gastrectomy 06/27/2016 10:24 AM [facility] Final Diagnosis STOMACH, PARTIAL (SLEEVE) GASTRECTOMY: - SEGMENT OF BODY/FUNDIC STOMACH WITH MINIMAL CHRONIC INACTIVE INFLAMMATION. - NO HELICOBACTER PYLORI ORGANISMS IDENTIFIED. HC/sm 06/27/2016 10:24 AM [facility] Clinical History PREOPERATIVE DIAGNOSIS: Morbid obesity due to excessive calories. OPERATIVE PROCEDURE: Laparoscopic sleeve gastrectomy. 06/27/2016 10:24 AM [facility] Gross Description One specimen was received for gross and micro exam. Received in formalin, labeled properly with the patient's identification and stomach remnants/sleeve gastrectomy is a tubular, hollow fragment of the product of sleeve gastrectomy measuring 20 cm in length x 1.5 to 5.0 cm in diameter. The serosa is sethi, unremarkable other than patchy petechial hemorrhage. A linear staple line courses along the concave edge throughout the length. The specimen is opened revealing bloody mucus. The mucosa is macias, unremarkable with normal nuchal folds, no polyps, masses, or ulcerations. Random sections taken from proximal, mid, and distal portions of the specimen are submitted in cassettes A1, A2, and A3. HC/ns 06/27/2016 10:24 AM [facility] Microscopic Description Microscopic examination is performed and substantiates the above diagnosis. 06/27/2016 10:24 AM [facility] Performed By Performed by [facility] [place]. [address]. 06/27/2016 10:24 AM [facility] Disclaimer H&E slides and special stains prepared at [facility], [place]. [address] (CLIA# [id number]) unless otherwise specified. 06/27/2016 10:24 AM [facility] Embedded Images 06/27/2016 10:24 AM REGISTERED DENTAL ASSISTANT [facility] Pathology/Cytolo gy SPECIMEN FROM STOMACH OBTAINED BY PARTIAL GASTRECTOMY / Unknown 06/25/2016 11:58 AM REGISTERED DENTAL ASSISTANT 06/25/2016 1:25 PM REGISTERED DENTAL ASSISTANT Emmett Moffett MD LAB - PATHOLOGY/CYTO LOGY ORDERABLES Performing Organization Address City/[facility]/ZIP Co de Phone Number [facility] [address] * EKG 12-LEAD (06/21/2016 12:04 PM REGISTERED DENTAL ASSISTANT) Ventricular Rate 82 BPM [facility] Atrial Rate 82 BPM [facility] P-R Interval 166 ms [facility] QRS Duration ms 104 ms [facility] Q-T Interval ms 360 ms [facility] QTC Calculation (Bezet) 420 ms [facility] Calculated P Eden 52 degrees [facility] Calculated R Eden -39 degrees [facility] Calculated T [place] 50 degrees [facility] Interpretation EKG NORMAL SINUS RHYTHM LEFT AXIS DEVIATION ABNORMAL ECG NO PREVIOUS ECGS AVAILABLE Confirmed by CHRISTIANO SARGENT MD ([id number]), film editor TEJAS AVILA ([id number]) on 06/21/2016 6:45:53 PM [facility] 06/21/2016 12:0 4 PM REGISTERED DENTAL ASSISTANT 06/21/2016 6:45 PM REGISTERED DENTAL ASSISTANT Jason Nelson MD ECG ORDERABLES Performing Organization Address [facility] Co de Phone Number [facility] * BLOOD TYPE VERIFICATION (06/21/2016 11:48 AM REGISTERED DENTAL ASSISTANT) Pathologist [facility] ABO A 06/21/2016 1:50 PM REGISTERED DENTAL ASSISTANT [facility] Rh Type Negative 06/21/2016 1:50 PM REGISTERED DENTAL ASSISTANT [facility] Blood Bank BLOOD SPECIMEN / Unknown Lab Venipuncture / Unknown 06/21/2016 11:48 AM REGISTERED DENTAL ASSISTANT 06/21/2016 12:04 PM REGISTERED DENTAL ASSISTANT Emmett Moffett MD LAB - BLOOD BANK ORD ERABLES [facility] [address] * TYPE + SCREEN PANEL (06/21/2016 11:44 AM REGISTERED DENTAL ASSISTANT) ABO A 06/21/2016 1:53 PM REGISTERED DENTAL ASSISTANT [facility] Rh Type Negative 06/21/2016 1:53 PM REGISTERED DENTAL ASSISTANT [facility] Antibody Screen Negative 06/21/2016 1:53 PM REGISTERED DENTAL ASSISTANT [facility] Blood Bank BLOOD SPECIMEN / Unknown Lab Venipuncture / Unknown 06/21/2016 11:44 AM REGISTERED DENTAL ASSISTANT 06/21/2016 1:10 PM REGISTERED DENTAL ASSISTANT Emmett Moffett MD LAB - BLOOD BANK ORD ERABLES [facility] [address] Care Teams Drywall Finisher Relationship Specialty Start Date End Date Aamir Echavarria MD PCP - General Internal Medicine 02/06/21
--- OUTSIDE RECORDS SUMMARY | 2024-07-03 09:15 | XMS_ITS | Referral Summary ---
Author Organization [facility] Address [address] [place] [address] Care Team Providers Care Broom[employer] Press Feeder Name Role Phone Aamir Echavarria MD Primary Care Provider [phone] Source Comments [facility],non-owned Affiliates and Associated Physician Practices is amultiple site organization consisting of ambulatory clinics and hospital sitesin [place], [place], [place] and [place]. This disclosure is being madepursuant to the Care Everywhere program and may not contain all information available regarding this patient. Last updated 18.[facility] Allergies No known active allergies Medications * Be aware that medications may not be up to date on this document. Alwaysverify current medications with the patient. Medication Sig Dispensed Refills Start Date End Date Status omeprazole (PRILOSEC) 40 MG capsule Take 40 mg by mouth daily before breakfast Active multivitamin daily (THERAGRAN) tablet Take 2 Tabs by mouth daily with food Active albuterol HFA (PROVENTIL;VENTOLIN ;PROAIR) 108 (90 BASE) MCG/ACT inhalerIndications: Chronic Obstructive Pulmonary Disease Inhale 2 puffs by mouth every 4 hours as needed for Shortness of Breath, Wheezing or Cough Reasons: Chronic Obstructive Lung Disease 1 Inhaler 03/14/2017 Active ipratropium hfa (ATROVENT HFA) 17 MCG/ACT inhalerIndications: Chronic Obstructive Pulmonary Disease Inhale 2 puffs by mouth 4 times daily Reasons: Chronic Obstructive Lung Disease 1 Inhaler 03/14/2017 Active Active Problems No known active problems Social [...] 37.3 C (99.1 F) 03/14/2017 9:49 AM EMULSIFICATION OPERATOR Respiratory Rate 18 08/01/2017 9:50 AM CDT Oxygen Saturation 96% 08/01/2017 9:50 AM CDT Inhaled Oxygen Concentration 100% 12:43 PM EMULSIFICATION OPERATOR Weight 109.2 kg (240 lb 11.2 oz) 2017 10:00 AM CDT Height 167.6 cm (5' 6 ) 08/01/2017 10:0 0 AM CDT Body Mass Index 38.85 08/01/2017 10:00 AM CDT Functional Status Functional Status Response Date of Assess ment Is person deaf or have serious hearing difficult y? No 06/26/2016 Is person blind or have serious difficulty seein g? No 06/26/2016 Does person have serious dif ficulty walking/climbing stairs? No 06/26/2016 Does person have difficulty dressing/bathing? No 06/26/2016 Does person have difficulty doing errands alone? No 06/26/2016 Cognitive Status Response Date of Assessm ent Does person have difficulty concentrating/remembering/making decisions? No 06/26/2016 Plan of Treatment Not on file Medical Devices Implanted Type Area Extract Mixer Device Identifier Shelf Expiration Date Model / Serial / Lot Evicel Implanted:Qty: 1 on 06/25/2016 by Emmett Moffett MD at [facility] N/A: Abdomen [employer] 10/25/2017 [id number] / / [id number] Procedures Procedure Name Priority Date/Time Associated Diagnosis Comments COMPREHENSIVE METABOLIC PANEL Routine 06/26/2016 3:39 AM EMULSIFICATION OPERATOR from Last 3 Months or Most Recently Relevant to Health Maintenance Results * (ABNORMAL) COMPREHENSIVE METABOLIC PANEL (06/26/2016 3:39 AM EMULSIFICATION OPERATOR) [facility] Glucose 130(H) 70 - 125 mg/dL 06/26/2016 5:11 AM EMULSIFICATION OPERATOR [facility] Sodium 135(L) 136 - 145 mmol/L 06/26/2016 5:11 AM [facility] Potassium 4.7(H) 3.4 - 4.5 mmol/L 06/26/2016 5:11 AM [facility] Chloride 102 98 - 107 mmol/L 06/26/2016 5:11 AM [facility] CO2 23 22 - 29 mmol/L 06/26/2016 5:11 AM [facility] Calcium 8.3(L) 8.4 - 10.2 mg/dL 06/26/2016 5:11 AM [facility] Anion Gap 15 10 - 20 mmol/L 06/26/2016 5:11 AM [facility] BUN 14.6 8.4 - 25.7 mg/dL 06/26/2016 5:11 AM [facility] Creatinine 1.14 0.72 - 1.25 mg/dL 06/26/2016 5:11 AM [facility] eGFR by MDRD >60 >60 mL/min/1.7 3m2 06/26/2016 5:11 AM [facility] eGFR by MDRD >60 >60 mL/min/1.7 3m2 06/26/2016 5:11 AM [facility] Alkaline Phosphatase 67 40 - 150 U/L 06/26/2016 5:11 AM [facility] ALT 24 5 - 55 U/L 06/26/2016 5:11 AM [facility] AST 25 5 - 34 U/L 06/26/2016 5:11 AM [facility] Protein Total 6.7 6.4 - 8.3 gm/dL 06/26/2016 5:11 AM [facility] Albumin 3.8 3.5 - 5.0 gm/dL 06/26/2016 5:11 AM [facility] Globulin Total 2.9 2.6 - 4.0 gm/dL 06/26/2016 5:11 AM [facility] Albumin/Globulin Ratio 1.3 0.9 - 1.6 06/26/2016 5:11 AM [facility] Bilirubin Total 0.3 0.2 - 1.2 mg/dL 06/26/2016 5:11 AM [facility] Blood BLOOD SPECIMEN / Unknown Lab Venipuncture / Unknown 06/26/2016 3:39 AM EMULSIFICATION OPERATOR 06/26/2016 4:44 AM EMULSIFICATION OPERATOR Emmett Moffett MD LAB - CHEMISTRY DAVID WADDELL [facility] [address] from Last 3 Months or Most Recently Relevant to Health Maintenance Advance Directives * Full Code (Latest Code Status on File) Date Activated Date Inactivated Comments 06/25/2016 2:22 PM 06/26/2016 6:21 PM Care Teams Broomcorn Press Feeder Relationship Specialty Start Date End Date Aamir Echavarria MD PCP - General Internal Medicine 02/06/21
--- OUTSIDE RECORDS SUMMARY | 2024-07-03 09:15 | XMS_ITS | Clinical Summary ---
Author Organization [facility] Address [address] [place] [address] Care Team Providers Care Outside Event Sales Specialist Name Role Phone Daryn Loo MD Unavailable [phone] Sandy Emery MD Unavailable [phone] Willie Choe MD Unavailable [phone] Chapito Bejarano MD Unavailable [phone] Mel Bolton MD Primary Care Provider [phone] Allergies No known active allergies Medications ipratropium [...] 06/26/2023 Assessment & Plan (06/26/2023 10:25 AM YEAST STACKER): Chronic, stable, controlled on omeprazole. Continue current therapy. Rhinosinusitis 01/15/2023 Assessment & Plan (01/15/2023 1:20 PM CDT): Chronic, improved. Continue nasal saline, intranasal steroids. Paroxysmal atrial fibrillation 05/02/2022 Assessment & Plan (06/26/2023 10:24 AM YEAST STACKER): In sinus rhythm off antiarrhythmics. Continue metoprolol and monitor. Assessment & Plan (05/02/2022 9:23 PM YEAST STACKER): In sinus rhythm off antiarrhythmics. Continue metoprolol [...] 60mg daily. He will contact us via [employer] if he would like to increase it in the future Assessment & Plan (06/26/2023 10:22 AM YEAST STACKER): Chronic, improved but not fully controlled on current low-dose propranolol. Will increase propranolol to extended release 60 mg once daily. Metoprolol decreased to avoid bradycardia. Assessment & Plan (01/15/2023 1:20 PM CDT): Chronic, not currently on medication. Consider propranolol in future, though this may require an adjustment in his metoprolol to accommodate additional beta blockade. Assessment & Plan (05/02/2022 9:24 PM YEAST STACKER): Patient's description of tremor is most consistent with benign essential tremor. Trial of primidone, as tremor is increasingly problematic in patient's quality of life and ADLs. Hypertension, essential 05/02/2022 Assessment & Plan (06/26/2023 10:23 AM YEAST STACKER): Chronic, well controlled. Continue furosemide and metoprolol. Assessment & Plan (05/02/2022 9:24 PM YEAST STACKER): Chronic, well controlled. Continue furosemide and metoprolol. Chronic heart failure with preserved ejection fr action 05/02/2022 Assessment & Plan (06/26/2023 10:22 AM YEAST STACKER): Chronic, stable, euvolemic. Continue furosemide, metoprolol. Assessment & Plan (05/02/2022 9:24 PM YEAST STACKER): Chronic, stable, euvolemic. Continue furosemide. Peripheral vascular disease 11/06/2021 Assessment & Plan (06/26/2023 10:24 AM YEAST STACKER): Chronic, improved with intervention by vascular surgery. Continue antiplatelet therapy with clopidogrel, pravastatin. Continued management per Dr. Bejarano. Assessment & Plan (05/02/2022 9:22 PM YEAST STACKER): Chronic, improved with intervention by vascular surgery. Continue antiplatelet therapy with clopidogrel, pravastatin. Continued management per Dr. Bejarano. Assessment & Plan (11/06/2021 10:03 AM CDT): Chronic, improved with intervention by vascular surgery. Continue antiplatelet therapy with clopidogrel, pravastatin. Continued management per Dr. Bejarano. Morbid obesity with BMI of 45.0-49.9, adult 10/26 Assessment & Plan (06/26/2023 10:23 AM YEAST STACKER): Continue healthy weight loss effort. Assessment & Plan (01/15/2023 1:20 PM CDT): Continue healthy weight loss efforts. Assessment & Plan (05/02/2022 9:22 PM YEAST STACKER): Continue healthy weight loss efforts. Assessment & [...] diet soda. We discussed him seeing a automation application engineer in future though he is not keen on this idea. We will revisit this if we are not seeing improvement in his weight at subsequent visit. Prediabetes 11/06/2021 Assessment & Plan (05/02/2022 9:23 PM YEAST STACKER): Chronic, stable. Labs today. Assessment & Plan [...] 07/03/2021 Assessment & Plan (06/26/2023 10:23 AM YEAST STACKER): Secondary to CLL. Monitor. Continue preventative measures including routine vaccines. Assessment & Plan (05/02/2022 9:22 PM YEAST STACKER): Secondary to CLL. Monitor. Continue preventative measures including routine vaccines. Preventative health care 05/09/2021 Assessment & Plan (06/26/2023 10:24 AM YEAST STACKER): He is morbidly obese based on his [...] yet. Assessment & Plan (05/02/2022 9:22 PM YEAST STACKER): From a preventative health standpoint, he is [...] yet. Assessment & Plan (05/09/2021 11:06 AM YEAST STACKER): From a preventative health standpoint, he is [...] 04/30/2021 Assessment & Plan (06/26/2023 10:23 AM YEAST STACKER): Chronic, stable, adequately controlled only with albuterol p.r.n.. Continue current regimen. Consider restarting maintenance inhaler therapy in future. Assessment & Plan (05/02/2022 9:20 PM YEAST STACKER): Chronic, stable. Now tobacco free. Continue Symbicort and p.r.n. rescue inhalers albuterol and ipratropium. Assessment & Plan (05/09/2021 11:04 AM YEAST STACKER): Chronic, stable. Now tobacco free. Continue Symbicort and p.r.n. rescue inhalers albuterol and ipratropium. If symptoms should worsen consider adding anti muscarinic. Major depressive disorder, recurrent, mild 04/30 Assessment & Plan (06/26/2023 10:23 AM YEAST STACKER): Chronic, stable, well controlled not currently on medication. Monitor. Assessment & Plan (05/02/2022 9:21 PM YEAST STACKER): Chronic, stable, well controlled. Continue low-dose sertraline 50 mg. Assessment & Plan (05/09/2021 11:04 AM YEAST STACKER): Chronic, in remission. Continue low-dose sertraline 50 mg. Coronary artery calcification 04/12/2021 Assessment & Plan (05/09/2021 11:05 AM YEAST STACKER): Chronic, stable. Continue antiplatelet therapy with Plavix. No aspirin due to Eliquis use. Continue pravastatin. Continue regular follow-up with Cardiology. Obstructive sleep apnea syndrome 01/31/2021 Personal history of nicotine dependence 12/30/19 21 Hypogammaglobulinemia 05/02/2020 Assessment & Plan (06/26/2023 10:23 AM YEAST STACKER): Chronic, in the setting of CLL. Monitor. Assessment & Plan (05/02/2022 9:20 PM YEAST STACKER): Chronic, in the setting of CLL. Monitor. Assessment & Plan (05/09/2021 11:03 AM YEAST STACKER): Chronic, in the setting of CLL. Continue to follow with Hematology-Oncology. Pulmonary infiltrates 03/02/2020 Chronic lymphocytic leukemia 02/13/2015 Assessment & Plan (06/26/2023 10:22 AM YEAST STACKER): Chronic, stable, without evidence of disease progression. Continue heme-onc follow up. Assessment & Plan (05/02/2022 9:20 PM YEAST STACKER): Chronic, stable. Continue heme-onc follow up. Assessment & Plan (05/09/2021 11:02 AM YEAST STACKER): Chronic. Continue to follow with Hematology-Oncology. Resolved Problems Problem Noted Date Diagnosed Date Resolved Date Atrial fibrillation, chronic 01/04/2021 05/02/2022 Overview (01/04/2021): Added automatically from request for surgery [id number] Assessment & Plan (05/09/2021 11:03 AM YEAST STACKER): Chronic, currently stable and rate controlled with metoprolol, rhythm controlled with flecainide, and anticoagulated with Eliquis. Proceed with EP consult to evaluate switching therapies. Encounters Date Type Department Care Team Description 07/01/2024 8:30 AM YEAST STACKER Office Visit [address], [place] [address] Randy Hardin NP Routine physical examination (Primary Dx); Chronic lymphocytic leukemia (HCC); Chronic obstructive pulmonary disease, unspecified COPD type (HCC); Obstructive sleep apnea syndrome; Major depressive disorder, recurrent, mild; Morbid obesity with BMI of 45.0-49.9, adult (HCC); Paroxysmal atrial fibrillation (HCC); Chronic heart failure with preserved ejection fraction (HCC); Benign essential tremor 07/01/[address] [place] [phone] Kelly Peralta 06/04/2024 12:30 PM YEAST STACKER Telemedicine [facility] [address] [place] [phone] Wendy Galo NP COPD with acute exacerbation (HCC) (Primary Dx) 06/04/2024 Nurse Triage [address] [place] [phone] Mel Bolton MD 05/12/2024 Documentation [facility] [address] [place] [phone] Samira Omer RMA Appointment 05/12/2024 Telephone [facility] [address] [place] [phone] Yandy Stoner RN 05/12/2024 Nurse Triage [address] [place] [phone] Mel Bolton MD 04/29/2024 7:30 AM YEAST STACKER Office Visit [facility] [address] [place] [phone] Sandy Emery MD Chronic lymphocytic leukemia (HCC) (Primary Dx) 04/14/[address] [place] [phone] Mel Bolton MD Symptom Based Call 04/14/2024 Documentation [facility] [address] [place] [phone] Samira Omer RMA Appointment from Last 3 Months Immunizations Immunization Administration Dates Next Due Influenza, [...] (Arexvy) 04/23/2024 Tdap 04/29/2016 ZOSTER Recombinant 03/07/2023,01/06/2023 Surgical History Surgery Date Site/Laterality Comments PORT PLACEMENT CHEST >5 YEARS 08/17/2018 N/A PORT REMOVAL 04/01/2019 N/A SKIN GRAFT APPENDECTOMY TUMOR REMOVAL CHOLECYSTECTOMY ELBOW SURGERY GASTRIC BYPASS 04/28/2016 - 04/27/2017 Gastric sleeve NASAL SINUS SURGERY VASCULAR SURGERY Right thigh stenting Medical History Medical History Date Comments Small cell B-cell lymphoma (HCC) Lymphoma, small lymphocytic - (Added by TW Conv) Asthma COPD (chronic obstructive pu lmonary disease) (HCC) COPD (chronic obstructive pu lmonary disease) (HCC) Sleep apnea Coronary artery calcification 04/12/2021 GERD (gastroesophageal reflux disease) Hypertension, essential 05/02/2022 CLL (chronic lymphocytic dimitry kemia) (HCC) Family History Medical History Relation Name Comments Lung cancer Brother Family history of lung cancer - (Added by TW Conv) Skin cancer Child Family history of skin cancer - (Added by TW Conv) Heart disease Father Shayne Constantino Stomach cancer Father Shayne Constantino Family histor y of malignant neoplasm of stomach - (Added by TW Conv) Parkinsonism Mother PD with dementi a, no tremor Tremor Neg Hx Relation Name Status Comments Brother Child Father Shayne Constantino Alive Mother Social History Tobacco Use Types Packs/Day Years [...] on file Legal Sex Male 10:39 AM YEAST STACKER Gender Identity Male 02/02/2021 10:33 AM CDT Sexual Orientation Straight 10/29/2018 6: 40 AM CDT Obstetrics History Last Filed Vital Signs Vital Sign Reading Time Taken Comments Blood Pressure 120/60 07/01/2024 8:13 AM YEAST STACKER Pulse 90 07/01/2024 8:13 AM YEAST STACKER Temperature 36.2 C (97.2 F) 07/01/2024 8:13 AM YEAST STACKER Respiratory Rate 20 07/01/2024 8:13 AM YEAST STACKER Oxygen Saturation 95% 07/01/2024 8:13 AM YEAST STACKER Inhaled Oxygen Concentration - - Weight 129.3 kg (285 lb) 07/01/2024 8:13 AM YEAST STACKER Height 167.6 cm (5' 6 ) 07/01/2024 8:13 AM YEAST STACKER Body Mass Index 46 07/01/2024 8:13 AM YEAST STACKER Plan of Treatment Health Maintenance Due Date Last Done Comments Hepatitis B Screening 07/06/1978 Colon Cancer Screening-Colonoscopy 10/26/2024 07/14/2019, 04/28/2018 Postponed from 07/13/2024 (Patient declined, but will receive in the future) Covid-19 Vaccine ( season) 2025 05/09/2023, 01/11/2022, 12/31/2020, Additional history exists Postponed from 12/28/2023 (Patient declined, but will receive in the future) Depression Screening 07/01/2025 07/01/2024, 06/26/2023, 11/06/2021 Regular Well Visit/Exam 18-64 07/01/2025 07/01/2024, 07/01/2024, 06/26/2023, Additional history exists Prostate Cancer Screening-PSA 07/10/2025 07/11/2023, 04/30/2021 DTaP/Tdap/Td Vaccine (2 - Td or Tdap) 04/29/2026 04/29/2016 Hepatitis C Screening Completed 08/17/2018, 014 Pneumococcal vaccine <65 Completed 023, 04/05/2020, 03/06/2016, Additional history exists Zoster Vaccine Completed 03/07/2023, 01/06/2023 Influenza Vaccine Completed 04/23/2024, , 01/06/2023, Additional history exists Medical Devices Implanted Type Area Degreasing Solution Reclaimer Device Identifier Shelf Expiration Date Model / Serial / Lot [employer] [id number] Xcela 8fr 1.6mm 1 Lumen Power Injectable Attach Catheter Fill - [id number] Implanted:Qty: 1 on 08/17/2018 at [facility] [employer] 12/28/2022 [id number] / / [id number] Procedures Procedure Name Priority Date/Time Associated Diagnosis Comments ERYTHROCYTE SEDIMENTATION RATE Routine 04/09/2024 9:56 AM YEAST STACKER Chronic lymphocytic leukemia (HCC) LACTATE DEHYDROGENASE Routine 04/09/2024 9:56 AM YEAST STACKER Chronic lymphocytic leukemia (HCC) COMPREHENSIVE METABOLIC PANEL Routine 04/09/2024 9:56 AM YEAST STACKER Chronic lymphocytic leukemia (HCC) CBC WITH AUTO DIFFERENTIAL Routine 04/09/2024 9:56 AM YEAST STACKER Chronic lymphocytic leukemia (HCC) PSA SCREEN Routine 07/11/2023 8:15 AM CDT Preventative health care HEPATITIS C ANTIBODY Routine Gen Lab 08/17/2018 4:52 PM CDT from Last 3 Months or Most Recently Relevant to Health Maintenance Results * (ABNORMAL) CBC with auto differential (04/09/2024 9:56 AM YEAST STACKER) [facility] WBC 8.1 3.8 - 10.8 Thousand/u L [facility] RBC, POC 4.86 4.20 - 5.80 Million/uL [facility] Hgb 15.1 13.2 - 17.1 g/dL [facility] Hct 47.5 38.5 - 50.0 % [facility] MCV 97.7 80.0 - 100.0 fL [facility] MCH 31.1 27.0 - 33.0 pg [facility] [...] 140 - 400 Thousand/u L [facility] MPV 10.9 7.5 - 12.5 fL [...] [facility] Blood 04/09/2024 9:56 AM YEAST STACKER 04/09/2024 9:57 AM YEAST STACKER us Sandy Emery MD LAB BLOOD ORDERABLES Final Result Performing Organization Address [facility] Co de Phone Number [facility] [address] [place] [address] * Erythrocyte sedimentation rate (04/09/2024 9:56 AM YEAST STACKER) Erythrocyte sedimentation rate 2 < OR = 20 mm/h [facility] Blood 04/09/2024 9:56 AM YEAST STACKER 04/09/2024 9:57 AM YEAST STACKER Sandy Emery MD LAB BLOOD ORDERABLES Final Result Performing Organization Address [facility] de Phone Number [facility] [address] [place] [address] * Lactate dehydrogenase (LD) (04/09/2024 9:56 AM YEAST STACKER) Lactate dehydrogenase (LDH) 131 120 - 250 U/L [facility] Blood 04/09/2024 9:56 AM YEAST STACKER 04/09/2024 9:57 AM YEAST STACKER Sandy Emery MD LAB BLOOD ORDERABLES Final Result Performing Organization Address [facility] de Phone Number [facility] [address] [place] [address] * (ABNORMAL) Comprehensive metabolic panel (04/09/2024 9:56 AM YEAST STACKER) Glucose 112(H) 65 - 99 mg/dL [facility] Comment: Fasting reference interval For someone without known diabetes, a glucose value between 100 and 125 mg/dL is consistent with prediabetes and should be confirmed with a follow-up test. BUN 19 7 - 25 mg/dL [facility] Creatinine 0.91 0.70 - 1.35 mg/dL [facility] eGFR 95 > OR = 60 mL/min/1.7 3m2 [facility] BUN/creat ratio SEE NOTE: 6 - 22 (calc) [facility] Comment: Not Reported: BUN and Creatinine are within reference range. Sodium 143 135 - 146 mmol/L [employer] Potassium, pl 4.2 3.5 - 5.3 mmol/L [facility] Chloride 103 98 - 110 mmol/L [facility] CO2 32 20 - 32 mmol/L [facility] Calcium 8.9 8.6 - 10.3 mg/dL [facility] Protein, sr 6.2 6.1 - 8.1 g/dL [employer] Albumin 4.3 3.6 - 5.1 g/dL [employer] GLOBULIN 1.9 1.9 - 3.7 g/dL (calc) [facility] Alb/glob ratio 2.3 1.0 - 2.5 (calc) [employer] Bilirubin, total 0.6 0.2 - 1.2 mg/dL [employer] Alk phos 61 35 - 144 U/L [employer] [facility] AST 13 10 - 35 U/L [employer] ALT (SGPT) 20 9 - 46 U/L [employer] Blood 04/09/2024 9:56 AM YEAST STACKER 04/09/2024 9:57 AM YEAST STACKER us Sandy Emery MD LAB BLOOD ORDERABLES Final Result [facility] [address] [place] [address] * PSA screen (07/11/2023 8:15 AM CDT) PSA 0.77 < OR = 4.00 ng/mL [employer] [facility] Comment: The total PSA value from this assay system is standardized against the WHO standard. The test result will be approximately 20% lower when compared to the equimolar-standardized total PSA (Lorenzo [place]). Comparison of serial PSA results should be interpreted with this fact in mind. This test was performed using the Siemens chemiluminescent method. Values obtained from different assay methods cannot be used interchangeably. PSA levels, regardless of value, should not be interpreted as absolute evidence of the presence or absence of disease. Blood 07/11/2023 8:15 AM CDT 07/11/2023 8:15 AM CDT us Mel Bolton MD LAB BLOOD ORDERABLES Final Re sult Performing Organization Address City/[facility]/ZIP Co de Phone Number [facility] [address] [phone] * Hepatitis C antibody (08/17/2018 4:52 PM CDT) Hep C Ab Nonreactive Nonreactive [facility] Comment: Interpretive Data Positive results should be confirmed by a molecular method. If positive, a second separately collected sample should be submitted for Hepatitis C Virus (HCV) RNA Detection and Quantitation by Real-Time Reverse Plater Apprentice-PCR (RT-PCR). Current interpretive data was last revised on 2016. Blood specimen (specimen) 08/17/2018 4:52 PM CDT 08/17/2018 8:38 PM CDT Narrative [facility] - 08/18/2018 10:46 AM CDT Sandy Emery MD LAB MICROBIOLOGY - GENERAL ORDERABLES Edited Result - Final Performing Organization Address [facility] Co de Phone Number [facility] Department [place] [address] from Last 3 Months or Most Recently Relevant to Health Maintenance Insurance [facility] [employer] Advance Directives For more information, please contact: [phone] * Full Code (Latest Code Status on File) Date Activated Date Inactivated Comments 04/01/2019 9:26 AM 04/01/2019 2:30 PM * Full Code Date Activated Date Inactivated Comments 08/17/2018 1:14 PM 08/17/2018 7:55 PM Care Teams Outside Event Sales Specialist Relationship Specialty Start Date End Date Mel Bolton MD [address] [address] PCP - General Sleep Medicine 04/30/21 Daryn Loo MD Referring Physician Internal Medicine 04/03/18 Sandy Emery MD Medical Oncologist/Equal Opportunity Assistant Medical Oncology 06/17/20 Willie Choe MD [address] [place] [address] Consulting Physician Otolaryngology 08/17/20 Chapito Bejarano MD [facility] [address] Referring Physician Vascular Surgery 02/16/21
--- OUTSIDE RECORDS SUMMARY | 2024-07-03 09:15 | XMS_ITS | Clinical Summary ---
Author Organization [facility] Address [address] [place] [address] Care Team Providers Care Corporate Traffic Manager Name Role Phone Aamir Echavarria MD Primary Care Provider [phone] Source Comments [facility],non-owned Affiliates and Associated Physician Practices is amultiple site organization consisting of ambulatory clinics and hospital sitesin [place], [place], [place] and [place]. This disclosure is being madepursuant to the Care Everywhere program and may not contain all information available regarding this patient. Last updated 18.[employer] [facility] Allergies No known active allergies Medications * [...] Active Active Problems No known active problems Family History Medical History Relation Name Comments Arthritis Mother Parkinson's Disease Mother Obesity Sister 1 Obesity Sister 2 Relation Name Status Comments Father Alive Mother Alive Sister 1 Alive Sister 2 Alive Social History Tobacco Use Types Packs/Day Years [...] 37.3 C (99.1 F) 03/14/2017 9:49 AM WATER TESTER Respiratory Rate 18 08/01/2017 9:50 AM CDT Oxygen Saturation 96% 08/01/2017 9:50 AM CDT Inhaled Oxygen Concentration 100% 12:43 PM WATER TESTER Weight 109.2 kg (240 lb 11.2 oz) 2017 10:00 AM CDT Height 167.6 cm (5' 6 ) 08/01/2017 10:0 0 AM CDT Body Mass Index 38.85 08/01/2017 10:00 AM CDT Plan of Treatment Health Maintenance Due Date Last Done Comments COLOGUARD (AGES 45-75) - COLON CA SCREENING 1961 COLON MONITORING 1961 COLONOSCOPY - COLON CA SCREENING 1961 CT COLONOGRAPHY - COLON CA SCREENING 1961 Colorectal Cancer Screening 1961 FIT - COLON CA SCREENING 1961 FLEX SIG - COLON CA SCREENING 1961 LIPID TESTING 1961 HIV SCREENING 1976 HEPATITIS C SCREENING 07/01/1979 DTAP/TDAP/TD VACCINES (1 - Tdap) 1980 PNEUMOCOCCAL VACCINE 50+ (1 of 1 - PCV) 07/06/2011 ZOSTER VACCINE (1 of 2) 07/06/2011 SCREENING FOR DIABETES 06/27/2019 7, 06/26/2016, 06/26/2016, Additional history exists COVID-19 VACCINE ( season) 2023 12/31/2020, 08/11/2020, 07/14/2020 INFLUENZA VACCINE (#1) 2023 0, 02/26/2019, 02/01/2019, Additional history exists DEPRESSION SCREENING 04/28/2024 Respiratory Syncytial Virus (RSV) Vaccine Pt: or over 60 yrs (1 - 1-dose 75+ series) 2036 HEPATITIS B VACCINE Aged Out No longe r eligible based on patient's age to complete this topic HIB VACCINE Aged Out No longer eligi ble based on patient's age to complete this topic HPV VACCINE Aged Out No longer eligi ble based on patient's age to complete this topic MENINGOCOCCAL (Group B) VACCINE Aged Out No longer eligible based on patient's age to complete this topic MENINGOCOCCAL VACCINE Aged Out No homer ventura eligible based on patient's age to complete this topic PNEUMOCOCCAL VACCINE Aged Out No long er eligible based on patient's age to complete this topic Medical Devices Implanted Type Area [employer] Dental Lab Technician Device Identifier Shelf Expiration Date Model / Serial / Lot Evicel Implanted:Qty: 1 on 06/25/2016 by Emmett Moffett MD at [facility] N/A: Abdomen Ethicon Endo 10/25/2017 [id number] / / [id number] Procedures Procedure Name Priority Date/Time Associated Diagnosis Comments COMPREHENSIVE METABOLIC PANEL Routine 06/26/2016 3:39 AM WATER TESTER from Last 3 Months or Most Recently Relevant to Health Maintenance Results * (ABNORMAL) COMPREHENSIVE METABOLIC PANEL (06/26/2016 3:39 AM WATER TESTER) Glucose 130(H) 70 - 125 mg/dL 06/26/2016 5:11 AM [facility] Sodium 135(L) 136 - 145 mmol/L 06/26/2016 5:11 AM [facility] Potassium 4.7(H) 3.4 - 4.5 mmol/L 06/26/2016 5:11 AM [facility] Chloride 102 98 - 107 mmol/L 06/26/2016 5:11 AM [facility] CO2 23 22 - 29 mmol/L 06/26/2016 5:11 AM [facility] Calcium 8.3(L) 8.4 - 10.2 mg/dL 06/26/2016 5:11 AM [facility] Anion Gap 15 10 - 20 mmol/L 06/26/2016 5:11 AM [facility] BUN 14.6 8.4 - 25.7 mg/dL 06/26/2016 5:11 AM [facility] Creatinine 1.14 0.72 - 1.25 mg/dL 06/26/2016 5:11 AM [facility] eGFR by MDRD >60 >60 mL/min/1.7 3m2 06/26/2016 5:11 AM [facility] eGFR by MDRD >60 >60 mL/min/1.7 3m2 06/26/2016 5:11 AM [facility] Alkaline Phosphatase 67 40 - 150 U/L 06/26/2016 5:11 AM [facility] ALT 24 5 - 55 U/L 06/26/2016 5:11 AM [facility] AST 25 5 - 34 U/L 06/26/2016 5:11 AM [facility] Protein Total 6.7 6.4 - 8.3 gm/dL 06/26/2016 5:11 AM [facility] Albumin 3.8 3.5 - 5.0 gm/dL 06/26/2016 5:11 AM [facility] Globulin Total 2.9 2.6 - 4.0 gm/dL 06/26/2016 5:11 AM [facility] Albumin/Globulin Ratio 1.3 0.9 - 1.6 06/26/2016 5:11 AM [facility] Bilirubin Total 0.3 0.2 - 1.2 mg/dL 06/26/2016 5:11 AM [facility] Blood BLOOD SPECIMEN / Unknown Lab Venipuncture / Unknown 06/26/2016 3:39 AM WATER TESTER 06/26/2016 4:44 AM [facility] Emmett Moffett MD LAB - CHEMISTRY [facility] Organization Address [facility]/State/[facility] Co de Phone Number [facility] [address] from Last 3 Months or Most Recently Relevant to Health Maintenance Advance Directives * Full Code (Latest Code Status on File) Date Activated Date Inactivated Comments 06/25/2016 2:22 PM 06/26/2016 6:21 PM Care Teams Corporate Traffic Manager Relationship Specialty Start Date End Date Aamir Ehcavarria MD PCP - General Internal Medicine 02/06/21
--- OUTSIDE RECORDS SUMMARY | 2024-07-03 09:15 | XMS_ITS | Clinical Summary ---
Author Organization [facility] Address [address] [place] [id number] Care Team Providers Care Sales Representative [employer] Name Role Phone Rogelio Shi MD Primary Care Provider Ahmet ahuja Social History Tobacco Use Types Packs/Day Years Used Date Smoking Tobacco: Never Assessed Sex and Gender Information Value Date Recorded Sex Assigned at Not on file Legal Sex Male 8:14 PM CDT Gender Identity Not on file Sexual Orientation Not on file Last Filed Vital Signs Vital Sign Reading Time Taken Comments Blood Pressure 141/81 12/26/2014 10:31 AM CDT Pulse 76 12/22/2014 3:30 PM CDT Temperature - - Respiratory Rate - - Oxygen Saturation - - Inhaled Oxygen Concentration - - Weight 140.2 kg (309 lb) 12/22/2014 3:30 PM CDT Height 167.6 cm (5' 6 ) 12/22/2014 3:30 PM CDT Body Mass Index 49.87 12/22/2014 3:30 PM CDT Plan of Treatment Health Maintenance Due Date Last Done Comments Colorectal Cancer Screening Colonoscopy (10 Years) 1961 Annual Physical 1964 Hepatitis C 07/06/1979 DTaP, Tdap and Td Vaccines ( 1 - Tdap) 1980 Zoster Vaccines (1 of 2) 07/06/2011 COVID-19 Vaccine ( - 2023-2 5 season) 2023 Influenza Adult (#1) 2024 RSV Immunization or 60+ Years (1 - 1-dose 75+ series) 2036 Meningococcal B Vaccine Aged Out No l onger eligible based on patient's age to complete this topic Meningococcal Vaccine Aged Out No homer ventura eligible based on patient's age to complete this topic Pneumococcal Vaccine: Pediat rics (0 to 5 Years) and At-Risk Patients (6 to 64 Years) Aged Out No longer eligible b ased on patient's age to complete this topic RSV Immunizations Under 20 Months Aged Out No longer eligible based on patient's age to complete this topic Care Teams Sales Representative [employer] Relationship Specialty Start Date End Date Rogelio Shi MD PCP - General 12/26/14
--- NOTE | 2024-07-03 09:38 | ECG_ITS ---
Test Date: 2024-07-03 10:13:16 Measurements Intervals [place] Rate: 64 P: 33 [place]: 172 QRS: -33 QRSD: 105 T: 33 QT: 410 QTc: 426 Interpretive Statements SINUS RHYTHM LEFT AXIS DEVIATION [QRS AXIS < -30] LOW QRS VOLTAGE IN EXTREMITY LEADS [QRS DEFLECTION < 0.5 mV IN LIMB LEADS] ABNORMAL ECG WARNING: DATA QUALITY MAY AFFECT INTERPRETATION No previous ECG available for comparison Electronically Signed On 07-03-2024 15:58:05 BILLING SPECIALIST by Aamir Coelho M.D.
[2024-07-03 09:57] LABS: Add Urine Microscopic? NO; Appearance Urine Clear (Clear); Bilirubin Urine Negative (Negative); Blood Urine Negative (Negative); Color Urine Yellow (Yellow); Glucose Urine UA Negative (Negative); Ketones Urine Negative (Negative); Leukocyte Esterase Ur Negative LEU/UL (Negative); Nitrate Urine Negative (Negative); Protein Urine Negative (Negative); Specific Grav Ur 1.021 (1.001-1.035); Urobilinogen Urine 0.2 mg/dL (<2.0)
== END 2024-07-03 09:12 | disposition home or self-care (01) ==
LOC: ANHLAB 09:12
PROVIDERS: Visit Provider Urology
DX: N21.1 Calculus in urethra (principal); I10 Essential (primary) hypertension
CPT/HCPCS: 81003; 93005

== ENCOUNTER 2024-07-06 01:18 | Day surgery (SDC) | payer OTHER, SELFPAY ==
--- NOTE | 2024-07-02 13:45 | PC.NURSE ---
Report to the Outpatient Waiting Room, entrance under the green pavilion located off [facility], at time _7:30 AM on date __07/06/24 . Planned Procedure Time: ___9:30 AM .? Time changes happen often and if your time is changed the preop area will call you the afternoon before. - You and your visitor will be asked to self-screen and do not enter if you have any COVID symptoms. Please call surgeon if you need to reschedule. - A mask is optional within the hospital at this time. Patients may have clear liquids (water, carbonated beverages, clear teas, apple juice) until 3 hours prior to surgery ( 6:30 AM)with a maximum of 20 ounces. - No food from midnight until time of surgery and no smoking, or chewing tobacco (or any form of nicotine). No chewing gum, candy or mints. - Take only the following medications with a SIP of water on the morning of surgery: ___PROPRANOLOL,INHALER IF NEEDED,METOPROLOL DO NOT STOP ANY OF YOUR OTHER PRESCRIPTION MEDICATIONS PRIOR TO SURGERY EXCEPT THE FOLLOWING Hold all vitamins and supplements for 3 days per anesthesiologist.LAST DOSE 07/02/24 Medications to discontinue per physician _PT STATES_ HOLD ASPIRIN AND ,PLAVIX___LAST DOSE 06/30/24 PER TRACI Please no make-up, nail malay, hairspray, perfume, deodorant, or body powder the day of surgery.? No jewelry (including any body piercings) or valuables the day of surgery, leave them at home.? Please take a shower or bath the night before, or the morning of, surgery with an antibacterial soap.? Wear comfortable, loose fitting clothing.? Children are encouraged to wear pajamas. - Jewelry must be removed prior to entering the operating room.? Rings and piercings that are not removed may be cut off. - The hospital will not accept responsibility for valuables.? - Please leave all valuables, including medications, at home the day of surgery. If you are going home after surgery, a licensed motor bus driver must drive you home.? - NO public transportation without another adult if you receive anesthesia. - We recommend that an adult stay with you for 24 hours following discharge. - We also recommend that you do not drive, make important decision, drink alcoholic beverages, or take any drugs that were not prescribed by your health care provider for at least 24 hours after your discharge time. F Follow any additional instructions given to you from your surgeon. Telephone instructions given to _PATIENT and asked if any additional questions and then verbalized understanding. Patient advised to call surgeon office or pre surgery nurse liaison [phone] if any additional questions.
[2024-07-02 14:11] VITALS: BMI 43.5
[2024-07-06] VITALS (7 sets, daily range): BP systolic 112–136; BP diastolic 58–74; PULSE 67–71; RESP 12–20; TEMP 36.2–36.3; O2SAT 94–100
--- OUTSIDE RECORDS SUMMARY | 2024-07-06 01:21 | XMS_ITS ---
Author Organization [facility] Address [address] [place] [address] Care Team Providers Care Donor Technician Name Role Phone Daryn Loo MD Unavailable [phone] Sandy Emery MD Unavailable [phone] Willie Choe MD Unavailable [phone] Chapito Bejarano MD Unavailable [phone] Mel Bolton MD Primary Care Provider [phone] Active Problems Problem Noted Date Diagnosed Date Gastroesophageal reflux disease without esophagi tis 06/26/2023 Assessment & Plan (06/26/2023 10:25 AM SCIENTIFIC PROGRAMMER ANALYST): Chronic, stable, controlled on omeprazole. Continue current therapy. Rhinosinusitis 01/15/2023 Assessment & Plan (01/15/2023 1:20 PM CDT): Chronic, improved. Continue nasal saline, intranasal steroids. Paroxysmal atrial fibrillation 05/02/2022 Assessment & Plan (06/26/2023 10:24 AM SCIENTIFIC PROGRAMMER ANALYST): In sinus rhythm off antiarrhythmics. Continue metoprolol and monitor. Assessment & Plan (05/02/2022 9:23 PM SCIENTIFIC PROGRAMMER ANALYST): In sinus rhythm off antiarrhythmics. Continue [...] 60mg daily. He will contact us via [employer] if he would like to increase it in the future Assessment & Plan (06/26/2023 10:22 AM SCIENTIFIC PROGRAMMER ANALYST): Chronic, improved but not fully controlled on current low-dose propranolol. Will increase propranolol to extended release 60 mg once daily. Metoprolol decreased to avoid bradycardia. Assessment & Plan (01/15/2023 1:20 PM CDT): Chronic, not currently on medication. Consider propranolol in future, though this may require an adjustment in his metoprolol to accommodate additional beta blockade. Assessment & Plan (05/02/2022 9:24 PM SCIENTIFIC PROGRAMMER ANALYST): Patient's description of tremor is most consistent with benign essential tremor. Trial of primidone, as tremor is increasingly problematic in patient's quality of life and ADLs. Hypertension, essential 05/02/2022 Assessment & Plan (06/26/2023 10:23 AM SCIENTIFIC PROGRAMMER ANALYST): Chronic, well controlled. Continue furosemide and metoprolol. Assessment & Plan (05/02/2022 9:24 PM SCIENTIFIC PROGRAMMER ANALYST): Chronic, well controlled. Continue furosemide and metoprolol. Chronic heart failure with preserved ejection fr action 05/02/2022 Assessment & Plan (06/26/2023 10:22 AM SCIENTIFIC PROGRAMMER ANALYST): Chronic, stable, euvolemic. Continue furosemide, metoprolol. Assessment & Plan (05/02/2022 9:24 PM SCIENTIFIC PROGRAMMER ANALYST): Chronic, stable, euvolemic. Continue furosemide. Peripheral vascular disease 11/06/2021 Assessment & Plan (06/26/2023 10:24 AM SCIENTIFIC PROGRAMMER ANALYST): Chronic, improved with intervention by vascular surgery. Continue antiplatelet therapy with clopidogrel, pravastatin. Continued management per Dr. Bejarano. Assessment & Plan (05/02/2022 9:22 PM SCIENTIFIC PROGRAMMER ANALYST): Chronic, improved with intervention by vascular surgery. Continue antiplatelet therapy with clopidogrel, pravastatin. Continued management per Dr. Bejarano. Assessment & Plan (11/06/2021 10:03 AM CDT): Chronic, improved with intervention by vascular surgery. Continue antiplatelet therapy with clopidogrel, pravastatin. Continued management per Dr. Bejarano. Morbid obesity with BMI of 45.0-49.9, adult 10/26 Assessment & Plan (06/26/2023 10:23 AM SCIENTIFIC PROGRAMMER ANALYST): Continue healthy weight loss effort. Assessment & Plan (01/15/2023 1:20 PM CDT): Continue healthy weight loss efforts. Assessment & Plan (05/02/2022 9:22 PM SCIENTIFIC PROGRAMMER ANALYST): Continue healthy weight loss efforts. Assessment [...] diet soda. We discussed him seeing a ferry operator in future though he is not keen on this idea. We will revisit this if we are not seeing improvement in his weight at subsequent visit. Prediabetes 11/06/2021 Assessment & Plan (05/02/2022 9:23 PM SCIENTIFIC PROGRAMMER ANALYST): Chronic, stable. Labs today. Assessment & [...] 07/03/2021 Assessment & Plan (06/26/2023 10:23 AM SCIENTIFIC PROGRAMMER ANALYST): Secondary to CLL. Monitor. Continue preventative measures including routine vaccines. Assessment & Plan (05/02/2022 9:22 PM SCIENTIFIC PROGRAMMER ANALYST): Secondary to CLL. Monitor. Continue preventative measures including routine vaccines. Preventative health care 05/09/2021 Assessment & Plan (06/26/2023 10:24 AM SCIENTIFIC PROGRAMMER ANALYST): He is morbidly obese based on [...] yet. Assessment & Plan (05/02/2022 9:22 PM SCIENTIFIC PROGRAMMER ANALYST): From a preventative health standpoint, he [...] yet. Assessment & Plan (05/09/2021 11:06 AM SCIENTIFIC PROGRAMMER ANALYST): From a preventative health standpoint, he [...] 04/30/2021 Assessment & Plan (06/26/2023 10:23 AM SCIENTIFIC PROGRAMMER ANALYST): Chronic, stable, adequately controlled only with albuterol p.r.n.. Continue current regimen. Consider restarting maintenance inhaler therapy in future. Assessment & Plan (05/02/2022 9:20 PM SCIENTIFIC PROGRAMMER ANALYST): Chronic, stable. Now tobacco free. Continue Symbicort and p.r.n. rescue inhalers albuterol and ipratropium. Assessment & Plan (05/09/2021 11:04 AM SCIENTIFIC PROGRAMMER ANALYST): Chronic, stable. Now tobacco free. Continue Symbicort and p.r.n. rescue inhalers albuterol and ipratropium. If symptoms should worsen consider adding anti muscarinic. Major depressive disorder, recurrent, mild 04/30 Assessment & Plan (06/26/2023 10:23 AM SCIENTIFIC PROGRAMMER ANALYST): Chronic, stable, well controlled not currently on medication. Monitor. Assessment & Plan (05/02/2022 9:21 PM SCIENTIFIC PROGRAMMER ANALYST): Chronic, stable, well controlled. Continue low-dose sertraline 50 mg. Assessment & Plan (05/09/2021 11:04 AM SCIENTIFIC PROGRAMMER ANALYST): Chronic, in remission. Continue low-dose sertraline 50 mg. Coronary artery calcification 04/12/2021 Assessment & Plan (05/09/2021 11:05 AM SCIENTIFIC PROGRAMMER ANALYST): Chronic, stable. Continue antiplatelet therapy with Plavix. No aspirin due to Eliquis use. Continue pravastatin. Continue regular follow-up with Cardiology. Obstructive sleep apnea syndrome 01/31/2021 Personal history of nicotine dependence 12/30/19 21 Hypogammaglobulinemia 05/02/2020 Assessment & Plan (06/26/2023 10:23 AM SCIENTIFIC PROGRAMMER ANALYST): Chronic, in the setting of CLL. Monitor. Assessment & Plan (05/02/2022 9:20 PM SCIENTIFIC PROGRAMMER ANALYST): Chronic, in the setting of CLL. Monitor. Assessment & Plan (05/09/2021 11:03 AM SCIENTIFIC PROGRAMMER ANALYST): Chronic, in the setting of CLL. Continue to follow with Hematology-Oncology. Pulmonary infiltrates 03/02/2020 Chronic lymphocytic leukemia 02/13/2015 Assessment & Plan (06/26/2023 10:22 AM SCIENTIFIC PROGRAMMER ANALYST): Chronic, stable, without evidence of disease progression. Continue heme-onc follow up. Assessment & Plan (05/02/2022 9:20 PM SCIENTIFIC PROGRAMMER ANALYST): Chronic, stable. Continue heme-onc follow up. Assessment & Plan (05/09/2021 11:02 AM SCIENTIFIC PROGRAMMER ANALYST): Chronic. Continue to follow with Hematology-Oncology. Current Treatment and Therapy Plans No current plan information found. Past Treatment and Therapy Plans Oncology Chemotherapy Treatment Plan Name Start Date Discontinue Date Treatment Medications Discontinue Reason Plan Provider Cycles [id number] - [facility] - Lymphoma - [id number] - Arm B - Ibrutinib / Obinutuzumab 9 12/28/2020 INV-[facility] (/EA [id number]) obinutuzumab IVPB in 250 [...] (01/04/2021): Added automatically from request for surgery [id number] Assessment & Plan (05/09/2021 11:03 AM SCIENTIFIC PROGRAMMER ANALYST): Chronic, currently stable and rate controlled with metoprolol, rhythm controlled with flecainide, and anticoagulated with Eliquis. Proceed with EP consult to evaluate switching therapies.
--- OUTSIDE RECORDS SUMMARY | 2024-07-06 01:21 | XMS_ITS | Referral Summary ---
Author Organization [facility] Address [address] [place] [address] Care Team Providers Care Lithograph Printer Name Role Phone Daryn Loo MD Unavailable [phone] Sandy Emery MD Unavailable [phone] Willie Choe MD Unavailable [phone] Chapito Bejarano MD Unavailable [phone] Mel Bolton MD Primary Care Provider Encounters Date Type Department Care Team Description 07/01/[address] [place] [phone] Kelly Peralta 07/01/2024 8:30 AM INSTRUMENT AND CONTROL TECHNICIAN Office Visit [address] [phone] Randy Hardin NP Routine physical examination (Primary Dx); Chronic lymphocytic leukemia (HCC); Chronic obstructive pulmonary disease, unspecified COPD type (HCC); Obstructive sleep apnea syndrome; Major depressive disorder, recurrent, mild; Morbid obesity with BMI of 45.0-49.9, adult (HCC); Paroxysmal atrial fibrillation (HCC); Chronic heart failure with preserved ejection fraction (HCC); Benign essential tremor 06/04/2024 12:30 PM INSTRUMENT AND CONTROL TECHNICIAN Telemedicine [facility] [address] [place] [phone] Wendy Galo NP COPD with acute exacerbation (HCC) (Primary Dx) 06/04/2024 Nurse Triage [place] [id number] [facility] [place] [address] [place] [phone] Mel Bolton MD 05/12/2024 Documentation [facility] Oncology [address] [place] [phone] Samira Omer RMA Appointment 05/12/2024 Telephone [facility] Oncology [address] [place] [phone] Yandy Stoner RN 05/12/2024 Nurse Triage [address] [place] [phone] Mel Bolton MD 04/29/2024 7:30 AM INSTRUMENT AND CONTROL TECHNICIAN Office Visit [facility] Oncology [address] [place] [phone] Sandy Emery MD Chronic lymphocytic leukemia (HCC) (Primary Dx) 04/14/[address] [place] [phone] Mel Bolton MD Symptom Based Call 04/14/2024 Documentation [facility] Oncology [address] [place] [phone] Samira Omer RMA Appointment from Last 3 Months Allergies No known active allergies Medications ipratropium (ATROVENT HFA) 17 mcg/actuation inhaler Inhale 2 puffs 017 Active fluticasone propionate (FLONASE) 50 mcg/actuation nasal spray fluticasone propionate 50 mcg/actuation nasal spray,suspensio n SPRAY 2 SPRAYS INTO EACH NOSTRIL EVERY DAY Active prochlorperazin e (COMPAZINE) 10 mg tabletIndicatio ns:Cancer Chemotherapy-In duced Nausea and Vomiting Take 1 tablet (10 mg total) by mouth every 6 (six) hours as needed for nausea or vomiting 60 tablet 2 022 Active traZODone (DESYREL) 50 mg tablet Take 1 tablet (50 mg total) by mouth daily 90 tablet 3 023 Active omeprazole (PriLOSEC) 40 mg capsule Take 1 capsule (40 mg total) by mouth daily 90 capsule 3 024 Active albuterol HFA (PROVENTIL HFA,VENTOLIN HFA,PROAIR HFA) 90 mcg/actuation inhaler Inhale 2 puffs every 6 (six) hours as needed for wheezing or shortness of breath 1 each 11 024 Active allopurinoL (ZYLOPRIM) 300 mg tablet Take 1 tablet (300 mg total) by mouth daily 90 tablet 3 024 2024 Active pravastatin (PRAVACHOL) 40 mg tablet TAKE 1 TABLET(40 MG) BY MOUTH DAILY 90 tablet 3 024 Active furosemide (LASIX) 20 mg tablet Take 2 tablets (40 mg total) by mouth every morning 180 tablet 3 024 2024 Active clopidogreL (PLAVIX) 75 mg tablet Take 1 tablet (75 mg total) by mouth daily 90 tablet 3 024 2024 Active cyclobenzaprine (FLEXERIL) 10 mg tablet Take 1 tablet (10 mg total) by mouth 3 (three) times a day as needed for muscle spasms 30 tablet 024 Active ipratropium-alb uteroL (DUO-NEB) 0.5-2.5 mg/3 mL nebulizer solutionIndicat ions:COPD with acute exacerbation (HCC) Take 3 mL by nebulization every 6 (six) hours as needed for wheezing or shortness of breath 75 mL 025 Active benzonatate (TESSALON) 100 mg capsuleIndicati ons:Cough Take 1-2 capsules (100-200 mg total) by mouth 3 (three) times a day as needed for cough 90 capsule 025 Active metoprolol XL (TOPROL-XL) 25 mg extended release tablet Take 1 tablet (25 mg total) by mouth daily 100 tablet 1 025 2025 Active propranolol LA (INDERAL LA) 60 mg 24 hr capsule TAKE 1 CAPSULE BY MOUTH DAILY 100 capsule 1 025 Active propranolol LA (INDERAL LA) 60 mg 24 hr capsule Take 1 capsule (60 mg total) by mouth daily 90 capsule 3 024 2024 Discontinued metoprolol XL (TOPROL-XL) 25 mg extended release tablet Take 1 tablet (25 mg total) by mouth daily 90 tablet 4 024 2024 Discontinued(R eorder) azithromycin (ZITHROMAX) 250 mg tabletIndicatio ns:COPD with acute exacerbation (HCC) Take 2 tabs (500 mg) by mouth today, than 1 tab (250 mg) daily for 4 days. 6 tablet 025 2024 benzonatate (TESSALON) 200 mg capsuleIndicati ons:COPD with acute exacerbation (HCC) Take 1 capsule (200 mg total) by mouth 3 (three) times a day as needed for cough for up to 7 days 20 capsule 025 2024 Active Problems Problem Noted Date Diagnosed Date Gastroesophageal reflux disease without esophagi tis 06/26/2023 Assessment & Plan (06/26/2023 10:25 AM INSTRUMENT AND CONTROL TECHNICIAN): Chronic, stable, controlled on omeprazole. Continue current therapy. Rhinosinusitis 01/15/2023 Assessment & Plan (01/15/2023 1:20 PM CDT): Chronic, improved. Continue nasal saline, intranasal steroids. Paroxysmal atrial fibrillation 05/02/2022 Assessment & Plan (06/26/2023 10:24 AM INSTRUMENT AND CONTROL TECHNICIAN): In sinus rhythm off antiarrhythmics. Continue metoprolol and monitor. Assessment & Plan (05/02/2022 9:23 PM INSTRUMENT AND CONTROL TECHNICIAN): In sinus rhythm off antiarrhythmics. Continue metoprolol [...] 60mg daily. He will contact us via [facility] if he would like to increase it in the future Assessment & Plan (06/26/2023 10:22 AM INSTRUMENT AND CONTROL TECHNICIAN): Chronic, improved but not fully controlled on current low-dose propranolol. Will increase propranolol to extended release 60 mg once daily. Metoprolol decreased to avoid bradycardia. Assessment & Plan (01/15/2023 1:20 PM CDT): Chronic, not currently on medication. Consider propranolol in future, though this may require an adjustment in his metoprolol to accommodate additional beta blockade. Assessment & Plan (05/02/2022 9:24 PM INSTRUMENT AND CONTROL TECHNICIAN): Patient's description of tremor is most consistent with benign essential tremor. Trial of primidone, as tremor is increasingly problematic in patient's quality of life and ADLs. Hypertension, essential 05/02/2022 Assessment & Plan (06/26/2023 10:23 AM INSTRUMENT AND CONTROL TECHNICIAN): Chronic, well controlled. Continue furosemide and metoprolol. Assessment & Plan (05/02/2022 9:24 PM INSTRUMENT AND CONTROL TECHNICIAN): Chronic, well controlled. Continue furosemide and metoprolol. Chronic heart failure with preserved ejection fr action 05/02/2022 Assessment & Plan (06/26/2023 10:22 AM INSTRUMENT AND CONTROL TECHNICIAN): Chronic, stable, euvolemic. Continue furosemide, metoprolol. Assessment & Plan (05/02/2022 9:24 PM INSTRUMENT AND CONTROL TECHNICIAN): Chronic, stable, euvolemic. Continue furosemide. Peripheral vascular disease 11/06/2021 Assessment & Plan (06/26/2023 10:24 AM INSTRUMENT AND CONTROL TECHNICIAN): Chronic, improved with intervention by vascular surgery. Continue antiplatelet therapy with clopidogrel, pravastatin. Continued management per Dr. Bejarano. Assessment & Plan (05/02/2022 9:22 PM INSTRUMENT AND CONTROL TECHNICIAN): Chronic, improved with intervention by vascular surgery. Continue antiplatelet therapy with clopidogrel, pravastatin. Continued management per Dr. Bejarano. Assessment & Plan (11/06/2021 10:03 AM CDT): Chronic, improved with intervention by vascular surgery. Continue antiplatelet therapy with clopidogrel, pravastatin. Continued management per Dr. Bejarano. Morbid obesity with BMI of 45.0-49.9, adult 10/26 Assessment & Plan (06/26/2023 10:23 AM INSTRUMENT AND CONTROL TECHNICIAN): Continue healthy weight loss effort. Assessment & Plan (01/15/2023 1:20 PM CDT): Continue healthy weight loss efforts. Assessment & Plan (05/02/2022 9:22 PM INSTRUMENT AND CONTROL TECHNICIAN): Continue healthy weight loss efforts. Assessment & [...] diet soda. We discussed him seeing a business relations manager in future though he is not keen on this idea. We will revisit this if we are not seeing improvement in his weight at subsequent visit. Prediabetes 11/06/2021 Assessment & Plan (05/02/2022 9:23 PM INSTRUMENT AND CONTROL TECHNICIAN): Chronic, stable. Labs today. Assessment & Plan [...] 07/03/2021 Assessment & Plan (06/26/2023 10:23 AM INSTRUMENT AND CONTROL TECHNICIAN): Secondary to CLL. Monitor. Continue preventative measures including routine vaccines. Assessment & Plan (05/02/2022 9:22 PM INSTRUMENT AND CONTROL TECHNICIAN): Secondary to CLL. Monitor. Continue preventative measures including routine vaccines. Preventative health care 05/09/2021 Assessment & Plan (06/26/2023 10:24 AM INSTRUMENT AND CONTROL TECHNICIAN): He is morbidly obese based on his [...] yet. Assessment & Plan (05/02/2022 9:22 PM INSTRUMENT AND CONTROL TECHNICIAN): From a preventative health standpoint, he is [...] yet. Assessment & Plan (05/09/2021 11:06 AM INSTRUMENT AND CONTROL TECHNICIAN): From a preventative health standpoint, he is [...] 04/30/2021 Assessment & Plan (06/26/2023 10:23 AM INSTRUMENT AND CONTROL TECHNICIAN): Chronic, stable, adequately controlled only with albuterol p.r.n.. Continue current regimen. Consider restarting maintenance inhaler therapy in future. Assessment & Plan (05/02/2022 9:20 PM INSTRUMENT AND CONTROL TECHNICIAN): Chronic, stable. Now tobacco free. Continue Symbicort and p.r.n. rescue inhalers albuterol and ipratropium. Assessment & Plan (05/09/2021 11:04 AM INSTRUMENT AND CONTROL TECHNICIAN): Chronic, stable. Now tobacco free. Continue Symbicort and p.r.n. rescue inhalers albuterol and ipratropium. If symptoms should worsen consider adding anti muscarinic. Major depressive disorder, recurrent, mild 04/30 Assessment & Plan (06/26/2023 10:23 AM INSTRUMENT AND CONTROL TECHNICIAN): Chronic, stable, well controlled not currently on medication. Monitor. Assessment & Plan (05/02/2022 9:21 PM INSTRUMENT AND CONTROL TECHNICIAN): Chronic, stable, well controlled. Continue low-dose sertraline 50 mg. Assessment & Plan (05/09/2021 11:04 AM INSTRUMENT AND CONTROL TECHNICIAN): Chronic, in remission. Continue low-dose sertraline 50 mg. Coronary artery calcification 04/12/2021 Assessment & Plan (05/09/2021 11:05 AM INSTRUMENT AND CONTROL TECHNICIAN): Chronic, stable. Continue antiplatelet therapy with Plavix. No aspirin due to Eliquis use. Continue pravastatin. Continue regular follow-up with Cardiology. Obstructive sleep apnea syndrome 01/31/2021 Personal history of nicotine dependence 12/30/19 21 Hypogammaglobulinemia 05/02/2020 Assessment & Plan (06/26/2023 10:23 AM INSTRUMENT AND CONTROL TECHNICIAN): Chronic, in the setting of CLL. Monitor. Assessment & Plan (05/02/2022 9:20 PM INSTRUMENT AND CONTROL TECHNICIAN): Chronic, in the setting of CLL. Monitor. Assessment & Plan (05/09/2021 11:03 AM INSTRUMENT AND CONTROL TECHNICIAN): Chronic, in the setting of CLL. Continue to follow with Hematology-Oncology. Pulmonary infiltrates 03/02/2020 Chronic lymphocytic leukemia 02/13/2015 Assessment & Plan (06/26/2023 10:22 AM INSTRUMENT AND CONTROL TECHNICIAN): Chronic, stable, without evidence of disease progression. Continue heme-onc follow up. Assessment & Plan (05/02/2022 9:20 PM INSTRUMENT AND CONTROL TECHNICIAN): Chronic, stable. Continue heme-onc follow up. Assessment & Plan (05/09/2021 11:02 AM INSTRUMENT AND CONTROL TECHNICIAN): Chronic. Continue to follow with Hematology-Oncology. Resolved Problems Problem Noted Date Diagnosed Date Resolved Date Atrial fibrillation, chronic 01/04/2021 05/02/2022 Overview (01/04/2021): Added automatically from request for surgery [id number] Assessment & Plan (05/09/2021 11:03 AM INSTRUMENT AND CONTROL TECHNICIAN): Chronic, currently stable and rate controlled with [...] on file Legal Sex Male 10:39 AM INSTRUMENT AND CONTROL TECHNICIAN Gender Identity Male 02/02/2021 10:33 AM CDT Sexual Orientation Straight 10/29/2018 6: 40 AM CDT Last Filed Vital Signs Vital Sign Reading Time Taken Comments Blood Pressure 120/60 07/01/2024 8:13 AM INSTRUMENT AND CONTROL TECHNICIAN Pulse 90 07/01/2024 8:13 AM INSTRUMENT AND CONTROL TECHNICIAN Temperature 36.2 C (97.2 F) 07/01/2024 8:13 AM INSTRUMENT AND CONTROL TECHNICIAN Respiratory Rate 20 07/01/2024 8:13 AM INSTRUMENT AND CONTROL TECHNICIAN Oxygen Saturation 95% 07/01/2024 8:13 AM INSTRUMENT AND CONTROL TECHNICIAN Inhaled Oxygen Concentration - - Weight 129.3 kg (285 lb) 07/01/2024 8:13 AM INSTRUMENT AND CONTROL TECHNICIAN Height 167.6 cm (5' 6 ) 07/01/2024 8:13 AM INSTRUMENT AND CONTROL TECHNICIAN Body Mass Index 46 07/01/2024 8:13 AM INSTRUMENT AND CONTROL TECHNICIAN Plan of Treatment Not on file Medical Devices Implanted Type Area Account Planner Device Identifier Shelf Expiration Date Model / Serial / Lot [employer] [id number] Xcela 8fr 1.6mm 1 Lumen Power Injectable Attach Catheter Fill - [id number] Implanted:Qty: 1 on 08/17/2018 at [facility] [employer] 12/28/2022 [id number] / / [id number] Procedures Procedure Name Priority Date/Time Associated Diagnosis Comments ERYTHROCYTE SEDIMENTATION RATE Routine 04/09/2024 9:56 AM INSTRUMENT AND CONTROL TECHNICIAN Chronic lymphocytic leukemia (HCC) LACTATE DEHYDROGENASE Routine 04/09/2024 9:56 AM INSTRUMENT AND CONTROL TECHNICIAN Chronic lymphocytic leukemia (HCC) COMPREHENSIVE METABOLIC PANEL Routine 04/09/2024 9:56 AM INSTRUMENT AND CONTROL TECHNICIAN Chronic lymphocytic leukemia (HCC) CBC WITH AUTO DIFFERENTIAL Routine 04/09/2024 9:56 AM INSTRUMENT AND CONTROL TECHNICIAN Chronic lymphocytic leukemia (HCC) PSA SCREEN Routine 07/11/2023 8:15 AM CDT Preventative health care HEPATITIS C ANTIBODY Routine Gen Lab 08/17/2018 4:52 PM CDT from Last 3 Months or Most Recently Relevant to Health Maintenance Results * (ABNORMAL) CBC with auto differential (04/09/2024 9:56 AM INSTRUMENT AND CONTROL TECHNICIAN) WBC 8.1 3.8 - 10.8 Thousand/u L [facility] RBC, POC 4.86 4.20 - 5.80 Million/uL [facility] Hgb 15.1 13.2 - 17.1 g/dL [facility] Hct 47.5 38.5 - 50.0 % [facility] MCV 97.7 80.0 - 100.0 fL [facility] MCH 31.1 27.0 - 33.0 pg [facility] MCHC 31.8(L) 32.0 - 36.0 g/dL [facility] Comment: For adults, a slight decrease in the calculated MCHC value (in the range of 30 to 32 g/dL) is most likely not clinically significant; however, it should be interpreted with caution in correlation with other red cell parameters and the patient's clinical condition. Rdw 13.7 11.0 - 15.0 % [facility] Platelets 222 140 - 400 Thousand/u L [facility] MPV 10.9 7.5 - 12.5 fL [facility] Neutrophils, abs 4,123 1,500 - 7,800 cells/uL [facility] Lymphocytes, abs 2,940 850 - 3,900 cells/uL [facility] Monocyte abs 834 200 - 950 cells/uL [facility] Eosinophils, abs 130 15 - 500 cells/uL [facility] Basophils, abs 73 0 - 200 cells/uL [facility] Neutrophils 50.9 % [facility] Lymphocyte pct 36.3 % [facility] Monocytes 10.3 % [facility] Eosinophils 1.6 % [facility] Basophils 0.9 % [facility] Blood 04/09/2024 9:56 AM INSTRUMENT AND CONTROL TECHNICIAN 04/09/2024 9:57 AM INSTRUMENT AND CONTROL TECHNICIAN us Sandy Emery MD LAB BLOOD ORDERABLES Final Result [facility] [address] [place] [address] * Erythrocyte sedimentation rate (04/09/2024 9:56 AM INSTRUMENT AND CONTROL TECHNICIAN) Erythrocyte sedimentation rate 2 < OR = 20 mm/h [facility] Blood 04/09/2024 9:56 AM INSTRUMENT AND CONTROL TECHNICIAN 04/09/2024 9:57 AM INSTRUMENT AND CONTROL TECHNICIAN Sandy Emery MD LAB BLOOD ORDERABLES Final Result Performing Organization Address [facility] Co de Phone Number [facility] [address] [place] [address] * Lactate dehydrogenase (LD) (04/09/2024 9:56 AM INSTRUMENT AND CONTROL TECHNICIAN) Pathologist [facility] Lactate dehydrogenase (LDH) 131 120 - 250 U/L [facility] Blood 04/09/2024 9:56 AM INSTRUMENT AND CONTROL TECHNICIAN 04/09/2024 9:57 AM INSTRUMENT AND CONTROL TECHNICIAN Sandy Emery MD LAB BLOOD ORDERABLES Final Result Performing Organization Address [facility] de Phone Number [facility] [address] [place] [address] * (ABNORMAL) Comprehensive metabolic panel (04/09/2024 9:56 AM INSTRUMENT AND CONTROL TECHNICIAN) Pathologist [facility] Glucose 112(H) 65 - 99 mg/dL [facility] Comment: Fasting reference interval For someone without known diabetes, a glucose value between 100 and 125 mg/dL is consistent with prediabetes and should be confirmed with a follow-up test. BUN 19 7 - 25 mg/dL [facility] Creatinine 0.91 0.70 - 1.35 mg/dL [facility] eGFR 95 > OR = 60 mL/min/1.7 3m2 [facility] BUN/creat ratio SEE NOTE: 6 - 22 (calc) [facility] Comment: Not Reported: BUN and Creatinine are within reference range. Sodium 143 135 - 146 mmol/L [facility] Potassium, pl 4.2 3.5 - 5.3 mmol/L [facility] Chloride 103 98 - 110 mmol/L [facility] CO2 32 20 - 32 mmol/L [facility] Calcium 8.9 8.6 - 10.3 mg/dL [facility] Protein, sr 6.2 6.1 - 8.1 g/dL [facility] Albumin 4.3 3.6 - 5.1 g/dL [facility] GLOBULIN 1.9 1.9 - 3.7 [...] [facility] Blood 04/09/2024 9:56 AM INSTRUMENT AND CONTROL TECHNICIAN 04/09/2024 9:57 AM INSTRUMENT AND CONTROL TECHNICIAN us Sandy Emery MD LAB BLOOD ORDERABLES Final Result Performing Organization Address City/[facility]/ZIP Co de Phone Number [facility] [address] [place] [address] * PSA screen (07/11/2023 8:15 AM CDT) PSA 0.77 < OR = 4.00 ng/mL [facility] Comment: The total PSA value from this assay system is standardized against the WHO standard. The test result will be approximately 20% lower when compared to the equimolar-standardized total PSA (Lorenzo [place]). Comparison of serial PSA results should be [...] LAB BLOOD ORDERABLES Final Re sult [facility] [address] [phone] * Hepatitis C antibody (08/17/2018 4:52 PM CDT) Hep C Ab Nonreactive Nonreactive [facility] Comment: Interpretive Data Positive results should be confirmed by a molecular method. If positive, a second separately collected sample should be submitted for Hepatitis C Virus (HCV) RNA Detection and Quantitation by Real-Time Reverse Blend Technician-PCR (RT-PCR). Current interpretive data was last revised on 2016. Blood specimen (specimen) 08/17/2018 4:52 PM CDT 08/17/2018 8:38 PM CDT Narrative [facility] - 08/18/2018 10:46 AM CDT us Sandy Emery MD LAB MICROBIOLOGY - GENERAL ORDERABLES Edited Result - Final [facility] Department [place] [address] from Last 3 Months or Most Recently Relevant to Health Maintenance Insurance [facility] [employer]IC Advance Directives For more information, please contact: [phone] * Full Code (Latest Code Status on File) Date Activated Date Inactivated Comments 04/01/2019 9:26 AM 04/01/2019 2:30 PM * Full Code Date Activated Date Inactivated Comments 08/17/2018 1:14 PM 08/17/2018 7:55 PM Care Teams Lithograph Printer Relationship Specialty Start Date End Date Mel Bolton MD [address] [facility] [address] [place] [address] PCP - General Sleep Medicine 04/30/21 Daryn Loo MD Referring Physician Internal Medicine 04/03/18 Sandy Emery MD Medical Oncologist/Supermarket Manager Medical Oncology 06/17/20 Willie Choe MD [address] [place] [address] Consulting Physician Otolaryngology 08/17/20 Chapito Bejarano MD [address] [facility] [address] [place] [address] Referring Physician Vascular Surgery 02/16/21
--- OUTSIDE RECORDS SUMMARY | 2024-07-06 01:21 | XMS_ITS | Patient Health Summary ---
Author Organization [facility] Address [address] [place] [address] Care Team Providers Care Human Resources Operations Coordinator Name Role Phone Aamir Echavarria MD Primary Care Provider Note from [facility],non-owned Affiliates and Associated Physician Practices is amultiple site organization consisting of ambulatory clinics and hospital sitesin [place], [place], [place] and [place]. This disclosure is being madepursuant to the Care Everywhere program and may not contain all information available regarding this patient. Last updated 18.[facility] Allergies No known active allergies Medications [...] 37.3 C (99.1 F) 03/14/2017 9:49 AM SUBMARINE ELEMENT COORDINATOR Respiratory Rate 18 08/01/2017 9:50 AM CDT Oxygen Saturation 96% 08/01/2017 9:50 AM CDT Inhaled Oxygen Concentration 100% 12:43 PM SUBMARINE ELEMENT COORDINATOR Weight 109.2 kg (240 lb 11.2 oz) 2017 10:00 AM CDT Height 167.6 cm (5' 6 ) 08/01/2017 10:0 0 AM CDT Body Mass Index 38.85 08/01/2017 10:00 AM CDT Medical Devices Implanted Type Area Benzene Worker Device Identifier Shelf Expiration Date Model / Serial / Lot Evicel Implanted:Qty: 1 on 06/25/2016 by Emmett Moffett MD at [facility] N/A: Abdomen [employer] Endo 10/25/2017 [id number] / / [id number] Procedures * VAS BILATERAL VENOUS DUPLEX LE(Performed [...] PM CDT Narrative 02/07/2021 4:17 PM CDT [facility] Venous Reflux Pat.Name: ALENA CONSTANTINO JR. Pat.ID: [id number] .Date: 02/06/2021 Exam Time: 12:01:00 PM Study Type:Venous Reflux Age: 4 1960,60Y Sex: MALE Sonogrphr: Esvin Singh RVVikas Pat. Stat.:Outpatient Reason for Study: Pain -Leg, bilateral, R60.0, Localized edema History / Clinical: COPD Procedures: Venous Reflux Complete - Bilateral Race: 2 Visit ID: [id number] ++++++++++++++++++++++++++++++++++++ SUMMARY: ++++++++++++++++++++++++++++++++++++ Right: No deep venous [...] Procedure Note Emeka Fraga MD - 02/08/2021 [facility] Venous Reflux Pat.Name: ALENA CONSTANTINO JR. Pat.ID: [id number] .Date: 02/06/2021 Exam Time: 12:01:00 PM Study Type:Venous Reflux Age: 4 1960,60Y Sex: MALE Sonogrphr: JoCarol Black, RVT Pat. Stat.:Outpatient Reason for Study: Pain -Leg, bilateral, R60.0, Localized edema History / Clinical: COPD Procedures: Venous Reflux Complete - Bilateral Race: 2 Visit ID: [id number] ++++++++++++++++++++++++++++++++++++ SUMMARY: ++++++++++++++++++++++++++++++++++++ Right: No deep venous [...] CARDIAC STRESS TEST ORDER (06/27/2016 10:27 AM SUBMARINE ELEMENT COORDINATOR) Narrative 06/27/2016 10:27 AM SUBMARINE ELEMENT COORDINATOR Ordered by an unspecified provider. Scanned Document CARDIAC SERVICES ORD ERABLES * CARDIAC RHYTHM STRIP ORDER (06/27/2016 10:26 AM SUBMARINE ELEMENT COORDINATOR) Narrative 06/27/2016 10:26 AM SUBMARINE ELEMENT COORDINATOR Ordered by an unspecified provider. Scanned Document CARDIAC SERVICES ORD ERABLES * CARDIAC EKG ORDER (06/27/2016 10:26 AM SUBMARINE ELEMENT COORDINATOR) Narrative 06/27/2016 10:26 AM SUBMARINE ELEMENT COORDINATOR Ordered by an unspecified provider. Scanned Document CARDIAC SERVICES ORD ERABLES * CARDIAC ECHOCARDIOGRAM COMPLETE ORDER (06/27/2016 10:26 AM SUBMARINE ELEMENT COORDINATOR) Narrative 06/27/2016 10:26 AM SUBMARINE ELEMENT COORDINATOR Ordered by an unspecified provider. Scanned Document ECHO ORDERABLES * GLUCOSE - POINT OF CARE (06/26/2016 4:20 PM SUBMARINE ELEMENT COORDINATOR) Only the most recent of8 resultswithin the time period is included. [facility] Glucose WB/POC 100 70 - 125 mg/dL 06/26/2016 4:52 PM SUBMARINE ELEMENT COORDINATOR [facility] Blood BLOOD SPECIMEN / Unknown 06/26/2016 4:20 PM SUBMARINE ELEMENT COORDINATOR 06/26/2016 4:52 PM SUBMARINE ELEMENT COORDINATOR Narrative [facility] - 06/26/2016 4:52 PM SUBMARINE ELEMENT COORDINATOR NOTIFIED CAREGIVER Emmett Moffett MD LAB - POINT OF CARE ORDERABLES Performing Organization Address [facility]/State/[facility] Co de Phone Number [facility] [address] * UPPER GI GASTROGRAFFIN (06/26/2016 9:14 AM SUBMARINE ELEMENT COORDINATOR) Anatomical Region Laterality Modality Abdomen Radio Fluoroscop y 06/26/2016 9:35 AM SUBMARINE ELEMENT COORDINATOR Impressions 06/26/2016 9:48 AM SUBMARINE ELEMENT COORDINATOR Please see discussion above. Narrative 06/26/2016 9:48 AM SUBMARINE ELEMENT COORDINATOR UGI 06/26/2016 CLINICAL HISTORY: Status post gastric [...] PATHOLOGY PERIPHERAL SMEAR REVIEW (06/26/2016 3:39 AM SUBMARINE ELEMENT COORDINATOR) Case Report Pathology Interpretation Report Case: [id number] Authorizing Provider: Emmett Moffett MD Collected: 06/26/2016 03:39 AM Ordering Location: [facility] 2 ICU Received: 06/26/2016 01:00 PM Pathologist: Giovanni Mcpherson MD Specimen: Blood, # [id number] 06/26/2016 4:32 PM SUBMARINE ELEMENT COORDINATOR [facility] Final Diagnosis PERIPHERAL BLOOD, VENIPUNCTURE, SMEAR EVALUATION: - ATYPICAL LYMPHOCYTOSIS, MORPHOLOGICALLY CONSISTENT WITH CHRONIC LYMPHOCYTIC LEUKEMIA. COMMENT: No increase of prolymphocytes is seen. 06/26/2016 4:32 PM SUBMARINE ELEMENT COORDINATOR [facility] Peripheral Smear Description The smear was referred for evaluation due to abnormal differential. Evaluation of the Arita stained smear confirms lymphocytosis (95%) with a preponderance of large atypical maturing lymphocytes (95% of lymphocytes) with inconspicuous nucleoli. The morphologic features are consistent with chronic lymphocytic leukemia. No increase of prolymphocytes is seen. No blasts are seen. 06/26/2016 4:32 PM SUBMARINE ELEMENT COORDINATOR [facility] Blood BLOOD SPECIMEN / Unknown Lab Venipuncture / Unknown 06/26/2016 3:39 AM SUBMARINE ELEMENT COORDINATOR 06/26/2016 1:00 PM SUBMARINE ELEMENT COORDINATOR Emmett Moffett MD LAB - PATHOLOGY/CYTO LOGY ORDERABLES Performing Organization Address City/State/[facility] Co de Phone Number [facility] [address] * (ABNORMAL) DIFFERENTIAL MANUAL (06/26/2016 3:39 AM SUBMARINE ELEMENT COORDINATOR) Only the most recent of2 resultswithin the time period is included. WBC Auto 106.9(HH) 4.0 - 10.0 x10E9/L 06/26/2016 10:01 AM [facility] Neutrophils % Manual 10(L) 40 - 75 % 06/26/2016 10:01 AM [facility] Lymphocytes % Manual 89(H) 19 - 53 % 06/26/2016 10:01 AM [facility] Monocytes % Manual 1(L) 5 - 13 % 06/26/2016 10:01 AM [facility] Neutrophils Absolute Manual 10.7(H) 1.6 - 6.1 x10E3/uL 06/26/2016 10:01 AM [facility] Lymphocytes Absolute Manual 95.1(H) 1.2 - 3.7 x10E3/uL 06/26/2016 10:01 AM [facility] Monocytes Absolute Manual 1.1(H) 0.2 - 0.9 x10E3/uL 06/26/2016 10:01 AM [facility] Cells Counted 100 # cells 06/26/2016 10:01 AM [facility] Path Review Hematology Slide sent for Path review 06/26/2016 10:01 AM [facility] Platelet Estimation Adequate platelets Normal, Adequate platelets 06/26/2016 10:01 AM [facility] RBC Morphology Normal 06/26/2016 10:01 AM [facility] Lymphocyte Reactive 2+(A) None 06/26/2016 10:01 AM [facility] Blood BLOOD SPECIMEN / Unknown Lab Venipuncture / Unknown 06/26/2016 3:39 AM SUBMARINE ELEMENT COORDINATOR 06/26/2016 4:[address] [facility] Emmett Moffett MD LAB - HEMATOLOGY ORD ERABLES Performing Organization Address City/State/[facility] Co de Phone Number [facility] [address] * (ABNORMAL) CBC W AUTO DIFFERENTIAL (06/26/2016 3:[address] [facility]) Only the most recent of2 resultswithin the time period is included. [facility] WBC 106.9(HH) 4.0 - 10.0 x10E9/L 06/26/2016 5:18 AM [facility] Comment:Rechecked RBC 4.56 4.40 - 6.10 x10E12/L 06/26/2016 5:18 AM [facility] Hemoglobin 13.8 13.7 - 17.5 gm/dL 06/26/2016 5:18 AM [facility] Hematocrit 41.6 40.1 - 51.0 % 06/26/2016 5:18 AM [facility] MCV 91.2 78.0 - 100.0 fl 06/26/2016 5:18 AM [facility] MCH 30.3 25.6 - 34.0 pg 06/26/2016 5:18 AM [facility] MCHC 33.2 32.3 - 36.5 gm/dL 06/26/2016 5:18 AM [facility] RDW 13.3 11.6 - 14.4 % 06/26/2016 5:18 AM [facility] MPV 10.3 9.4 - 12.4 fl 06/26/2016 5:18 AM [facility] Platelet Count 222 163 - 369 x10E9/L 06/26/2016 5:18 AM [facility] Immature Granulocytes 0.6(H) 0 - 0.5 % 06/26/2016 5:18 AM [facility] Immature Granulocytes Absolute 0.59(H) 0 - 0.03 x10E9/L 06/26/2016 5:18 AM [facility] nRBC Auto 0 <=0 /100 WBC 06/26/2016 5:18 AM [facility] Hematology Reflex Status Manual Diff to follow 06/26/2016 5:18 AM [facility] Blood BLOOD SPECIMEN / Unknown Lab Venipuncture / Unknown 06/26/2016 3:39 AM SUBMARINE ELEMENT COORDINATOR 06/26/2016 4:[address] [facility] Emmett Moffett MD LAB - HEMATOLOGY ORD ERABLES Performing Organization Address [facility]/State/[facility] Co de Phone Number [facility] [address] * (ABNORMAL) COMPREHENSIVE METABOLIC PANEL (06/26/2016 3:[address] [facility]) Only the most recent of2 resultswithin the time period is included. Glucose 130(H) 70 - 125 mg/dL 06/26/2016 5:11 AM [facility] Sodium 135(L) 136 - 145 mmol/L 06/26/2016 5:11 AM [facility] Potassium 4.7(H) 3.4 - 4.5 mmol/L 06/26/2016 5:11 AM [facility] Chloride 102 98 - 107 mmol/L 06/26/2016 5:11 AM [facility] CO2 23 22 - 29 mmol/L 06/26/2016 5:11 AM [facility] Calcium 8.3(L) 8.4 - 10.2 mg/dL 06/26/2016 5:11 AM [facility] Anion Gap 15 10 - 20 mmol/L 06/26/2016 5:11 AM [facility] BUN 14.6 8.4 - 25.7 mg/dL 06/26/2016 5:11 AM [facility] Creatinine 1.14 0.72 - 1.25 mg/dL 06/26/2016 5:11 AM [facility] eGFR by MDRD >60 >60 mL/min/1.7 3m2 06/26/2016 5:11 AM [facility] eGFR by MDRD >60 >60 mL/min/1.7 3m2 06/26/2016 5:11 AM [facility] Alkaline Phosphatase 67 40 - 150 U/L 06/26/2016 5:11 AM [facility] ALT 24 5 - 55 U/L 06/26/2016 5:11 AM [facility] AST 25 5 - 34 U/L 06/26/2016 5:11 AM [facility] Protein Total 6.7 6.4 - 8.3 gm/dL 06/26/2016 5:11 AM [facility] Albumin 3.8 3.5 - 5.0 gm/dL 06/26/2016 5:11 AM [facility] Globulin Total 2.9 2.6 - 4.0 gm/dL 06/26/2016 5:11 AM [facility] Albumin/Globulin Ratio 1.3 0.9 - 1.6 06/26/2016 5:11 AM [facility] Bilirubin Total 0.3 0.2 - 1.2 mg/dL 06/26/2016 5:11 AM [facility] Blood BLOOD SPECIMEN / Unknown Lab Venipuncture / Unknown 06/26/2016 3:39 AM SUBMARINE ELEMENT COORDINATOR 06/26/2016 4:[address] [facility] Emmett Moffett MD LAB - CHEMISTRY DAVID WADDELL [facility] Organization Address City/State/[facility] Co de Phone Number [facility] [address] * PHOSPHORUS BLOOD (06/26/2016 3:39 AM SUBMARINE ELEMENT COORDINATOR) Only the most recent of2 resultswithin the time period is included. Phosphorus 3.4 2.3 - 4.7 mg/dL 06/26/2016 5:11 AM SUBMARINE ELEMENT COORDINATOR [facility] Blood BLOOD SPECIMEN / Unknown Lab Venipuncture / Unknown 06/26/2016 3:39 AM SUBMARINE ELEMENT COORDINATOR 06/26/2016 4:44 AM SUBMARINE ELEMENT COORDINATOR Emmett Moffett MD LAB - CHEMISTRY DAVID WADDELL Performing Organization Address [facility] Co de Phone Number [facility] [address] * MAGNESIUM BLOOD (06/26/2016 3:39 AM SUBMARINE ELEMENT COORDINATOR) Only the most recent of3 resultswithin the time period is included. Magnesium 2.3 1.6 - 2.6 mg/dL 06/26/2016 5:11 AM SUBMARINE ELEMENT COORDINATOR [facility] Blood BLOOD SPECIMEN / Unknown Lab Venipuncture / Unknown 06/26/2016 3:39 AM SUBMARINE ELEMENT COORDINATOR 06/26/2016 4:44 AM SUBMARINE ELEMENT COORDINATOR Emmett Moffett MD LAB - CHEMISTRY DAVID WADDELL Performing Organization Address [facility] Co de Phone Number [facility] [address] [place] [address] * MRSA DNA BY PCR (06/25/2016 3:17 PM SUBMARINE ELEMENT COORDINATOR) MRSA DNA by PCR Negative Negative 06/25/2016 5:29 PM SUBMARINE ELEMENT COORDINATOR [facility] Microbiology SPECIMEN FROM NASAL FOSSAE / Unknown 06/25/2016 3:17 PM SUBMARINE ELEMENT COORDINATOR 06/25/2016 4:00 PM SUBMARINE ELEMENT COORDINATOR Narrative [facility] - 06/25/2016 5:29 PM SUBMARINE ELEMENT COORDINATOR Methicillin-resistant Staphylococcus aureus (MRSA) DNA is not detected (presumed not colonized with MRSA). Emmett Moffett MD LAB - MICROBIOLOGY O RDERABLES Performing Organization Address [facility] Co de Phone Number [facility] [address] [place] [address] * GROSS + MICRO EXAM (ILL) (06/25/2016 11:[address] [facility]) Case Report Surgical Pathology Report Case: [id number] Authorizing Provider: Emmett Moffett MD Collected: 06/25/2016 11:58 AM Ordering Location: [facility] Received: 06/25/2016 01:25 PM Pathologist: Giovanni Mcpherson MD Specimen: Stomach Resect Sub, stomach remnant- sleeve gastrectomy 06/27/2016 10:24 AM [facility] Final Diagnosis STOMACH, PARTIAL (SLEEVE) GASTRECTOMY: - SEGMENT OF BODY/FUNDIC STOMACH WITH MINIMAL CHRONIC INACTIVE INFLAMMATION. - NO HELICOBACTER PYLORI ORGANISMS IDENTIFIED. HC/sm 06/27/2016 10:24 AM [facility] Clinical History PREOPERATIVE DIAGNOSIS: Morbid obesity due to excessive calories. OPERATIVE PROCEDURE: Laparoscopic sleeve gastrectomy. 06/27/2016 10:24 AM [facility] Gross Description One specimen was received [...] A2, and A3. HC/ns 06/27/2016 10:24 AM [facility] Microscopic Description Microscopic examination is performed and substantiates the above diagnosis. 06/27/2016 10:24 AM [facility] Performed By Performed by [facility] [place]. [address]. 06/27/2016 10:24 AM [facility] Disclaimer H&E slides and special stains prepared at [facility], [place]. [address] (CLIA# [id number]) unless otherwise specified. 06/27/2016 10:24 AM [facility] Embedded Images 06/27/2016 10:24 AM SUBMARINE ELEMENT COORDINATOR [facility] Pathology/Cytolo gy SPECIMEN FROM STOMACH OBTAINED BY PARTIAL GASTRECTOMY / Unknown 06/25/2016 11:58 AM SUBMARINE ELEMENT COORDINATOR 06/25/2016 1:25 PM SUBMARINE ELEMENT COORDINATOR Emmett Moffett MD LAB - PATHOLOGY/CYTO LOGY ORDERABLES Performing Organization Address City/[facility]/ZIP Co de Phone Number [facility] [address] * EKG 12-LEAD (06/21/2016 12:04 PM SUBMARINE ELEMENT COORDINATOR) Ventricular Rate 82 BPM [facility] Atrial Rate 82 BPM [facility] P-R Interval 166 ms [facility] QRS Duration ms 104 ms [facility] Q-T Interval ms 360 ms [facility] QTC Calculation (Bezet) 420 ms [facility] Calculated P [place] 52 degrees [facility] Calculated R [place] -39 degrees [facility] Calculated T [place] 50 degrees [facility] Interpretation EKG NORMAL SINUS RHYTHM LEFT AXIS DEVIATION ABNORMAL ECG NO PREVIOUS ECGS AVAILABLE Confirmed by CHRISTIANO SARGENT MD ([id number]), social media editor TEJAS AVILA ([id number]) on 06/21/2016 6:45:53 PM [facility] 06/21/2016 12:0 4 PM SUBMARINE ELEMENT COORDINATOR 06/21/2016 6:45 PM SUBMARINE ELEMENT COORDINATOR Jason Nelson MD ECG ORDERABLES Performing Organization Address [facility] Co de Phone Number [facility] * BLOOD TYPE VERIFICATION (06/21/2016 11:48 AM SUBMARINE ELEMENT COORDINATOR) Pathologist [facility] ABO A 06/21/2016 1:50 PM SUBMARINE ELEMENT COORDINATOR [facility] Rh Type Negative 06/21/2016 1:50 PM SUBMARINE ELEMENT COORDINATOR [facility] Blood Bank BLOOD SPECIMEN / Unknown Lab Venipuncture / Unknown 06/21/2016 11:48 AM SUBMARINE ELEMENT COORDINATOR 06/21/2016 12:04 PM SUBMARINE ELEMENT COORDINATOR Emmett Moffett MD LAB - BLOOD BANK ORD ERABLES [facility] [address] * TYPE + SCREEN PANEL (06/21/2016 11:44 AM SUBMARINE ELEMENT COORDINATOR) ABO A 06/21/2016 1:53 PM SUBMARINE ELEMENT COORDINATOR [facility] Rh Type Negative 06/21/2016 1:53 PM SUBMARINE ELEMENT COORDINATOR [facility] Antibody Screen Negative 06/21/2016 1:53 PM SUBMARINE ELEMENT COORDINATOR [facility] Blood Bank BLOOD SPECIMEN / Unknown Lab Venipuncture / Unknown 06/21/2016 11:44 AM SUBMARINE ELEMENT COORDINATOR 06/21/2016 1:10 PM SUBMARINE ELEMENT COORDINATOR Emmett Moffett MD LAB - BLOOD BANK ORD ERABLES [facility] [address] Care Teams Human Resources Operations Coordinator Relationship Specialty Start Date End Date Aamir Echavarria MD PCP - General Internal Medicine 02/06/21
--- OUTSIDE RECORDS SUMMARY | 2024-07-06 01:21 | XMS_ITS | Clinical Summary ---
Author Organization [facility] Address [address] [place] [address] Care Team Providers Care Transmission Superintendent Name Role Phone Daryn Loo MD Unavailable [phone] Sandy Emery MD Unavailable [phone] Willie Choe MD Unavailable [phone] Chapito Bejarano MD Unavailable [phone] Mel Bolton MD Primary Care Provider [phone] Allergies No known active allergies Medications ipratropium [...] wheezing or shortness of breath 1 each 024 Active allopurinoL (ZYLOPRIM) 300 mg tablet [...] 06/26/2023 Assessment & Plan (06/26/2023 10:25 AM CALL CENTER SUPPORT CONSULTANT): Chronic, stable, controlled on omeprazole. Continue current therapy. Rhinosinusitis 01/15/2023 Assessment & Plan (01/15/2023 1:20 PM CDT): Chronic, improved. Continue nasal saline, intranasal steroids. Paroxysmal atrial fibrillation 05/02/2022 Assessment & Plan (06/26/2023 10:24 AM CALL CENTER SUPPORT CONSULTANT): In sinus rhythm off antiarrhythmics. Continue metoprolol and monitor. Assessment & Plan (05/02/2022 9:23 PM CALL CENTER SUPPORT CONSULTANT): In sinus rhythm off antiarrhythmics. Continue metoprolol [...] 60mg daily. He will contact us via [employer] if he would like to increase it in the future Assessment & Plan (06/26/2023 10:22 AM CALL CENTER SUPPORT CONSULTANT): Chronic, improved but not fully controlled on current low-dose propranolol. Will increase propranolol to extended release 60 mg once daily. Metoprolol decreased to avoid bradycardia. Assessment & Plan (01/15/2023 1:20 PM CDT): Chronic, not currently on medication. Consider propranolol in future, though this may require an adjustment in his metoprolol to accommodate additional beta blockade. Assessment & Plan (05/02/2022 9:24 PM CALL CENTER SUPPORT CONSULTANT): Patient's description of tremor is most consistent with benign essential tremor. Trial of primidone, as tremor is increasingly problematic in patient's quality of life and ADLs. Hypertension, essential 05/02/2022 Assessment & Plan (06/26/2023 10:23 AM CALL CENTER SUPPORT CONSULTANT): Chronic, well controlled. Continue furosemide and metoprolol. Assessment & Plan (05/02/2022 9:24 PM CALL CENTER SUPPORT CONSULTANT): Chronic, well controlled. Continue furosemide and metoprolol. Chronic heart failure with preserved ejection fr action 05/02/2022 Assessment & Plan (06/26/2023 10:22 AM CALL CENTER SUPPORT CONSULTANT): Chronic, stable, euvolemic. Continue furosemide, metoprolol. Assessment & Plan (05/02/2022 9:24 PM CALL CENTER SUPPORT CONSULTANT): Chronic, stable, euvolemic. Continue furosemide. Peripheral vascular disease 11/06/2021 Assessment & Plan (06/26/2023 10:24 AM CALL CENTER SUPPORT CONSULTANT): Chronic, improved with intervention by vascular surgery. Continue antiplatelet therapy with clopidogrel, pravastatin. Continued management per Dr. Bejarano. Assessment & Plan (05/02/2022 9:22 PM CALL CENTER SUPPORT CONSULTANT): Chronic, improved with intervention by vascular surgery. Continue antiplatelet therapy with clopidogrel, pravastatin. Continued management per Dr. Bejarano. Assessment & Plan (11/06/2021 10:03 AM CDT): Chronic, improved with intervention by vascular surgery. Continue antiplatelet therapy with clopidogrel, pravastatin. Continued management per Dr. Bejarano. Morbid obesity with BMI of 45.0-49.9, adult 10/26 Assessment & Plan (06/26/2023 10:23 AM CALL CENTER SUPPORT CONSULTANT): Continue healthy weight loss effort. Assessment & Plan (01/15/2023 1:20 PM CDT): Continue healthy weight loss efforts. Assessment & Plan (05/02/2022 9:22 PM CALL CENTER SUPPORT CONSULTANT): Continue healthy weight loss efforts. Assessment & [...] diet soda. We discussed him seeing a farmer tree fruit and nut crops in future though he is not keen on this idea. We will revisit this if we are not seeing improvement in his weight at subsequent visit. Prediabetes 11/06/2021 Assessment & Plan (05/02/2022 9:23 PM CALL CENTER SUPPORT CONSULTANT): Chronic, stable. Labs today. Assessment & Plan [...] 07/03/2021 Assessment & Plan (06/26/2023 10:23 AM CALL CENTER SUPPORT CONSULTANT): Secondary to CLL. Monitor. Continue preventative measures including routine vaccines. Assessment & Plan (05/02/2022 9:22 PM CALL CENTER SUPPORT CONSULTANT): Secondary to CLL. Monitor. Continue preventative measures including routine vaccines. Preventative health care 05/09/2021 Assessment & Plan (06/26/2023 10:24 AM CALL CENTER SUPPORT CONSULTANT): He is morbidly obese based on his [...] yet. Assessment & Plan (05/02/2022 9:22 PM CALL CENTER SUPPORT CONSULTANT): From a preventative health standpoint, he is [...] yet. Assessment & Plan (05/09/2021 11:06 AM CALL CENTER SUPPORT CONSULTANT): From a preventative health standpoint, he is [...] 04/30/2021 Assessment & Plan (06/26/2023 10:23 AM CALL CENTER SUPPORT CONSULTANT): Chronic, stable, adequately controlled only with albuterol p.r.n.. Continue current regimen. Consider restarting maintenance inhaler therapy in future. Assessment & Plan (05/02/2022 9:20 PM CALL CENTER SUPPORT CONSULTANT): Chronic, stable. Now tobacco free. Continue Symbicort and p.r.n. rescue inhalers albuterol and ipratropium. Assessment & Plan (05/09/2021 11:04 AM CALL CENTER SUPPORT CONSULTANT): Chronic, stable. Now tobacco free. Continue Symbicort and p.r.n. rescue inhalers albuterol and ipratropium. If symptoms should worsen consider adding anti muscarinic. Major depressive disorder, recurrent, mild 04/30 Assessment & Plan (06/26/2023 10:23 AM CALL CENTER SUPPORT CONSULTANT): Chronic, stable, well controlled not currently on medication. Monitor. Assessment & Plan (05/02/2022 9:21 PM CALL CENTER SUPPORT CONSULTANT): Chronic, stable, well controlled. Continue low-dose sertraline 50 mg. Assessment & Plan (05/09/2021 11:04 AM CALL CENTER SUPPORT CONSULTANT): Chronic, in remission. Continue low-dose sertraline 50 mg. Coronary artery calcification 04/12/2021 Assessment & Plan (05/09/2021 11:05 AM CALL CENTER SUPPORT CONSULTANT): Chronic, stable. Continue antiplatelet therapy with Plavix. No aspirin due to Eliquis use. Continue pravastatin. Continue regular follow-up with Cardiology. Obstructive sleep apnea syndrome 01/31/2021 Personal history of nicotine dependence 12/30/19 21 Hypogammaglobulinemia 05/02/2020 Assessment & Plan (06/26/2023 10:23 AM CALL CENTER SUPPORT CONSULTANT): Chronic, in the setting of CLL. Monitor. Assessment & Plan (05/02/2022 9:20 PM CALL CENTER SUPPORT CONSULTANT): Chronic, in the setting of CLL. Monitor. Assessment & Plan (05/09/2021 11:03 AM CALL CENTER SUPPORT CONSULTANT): Chronic, in the setting of CLL. Continue to follow with Hematology-Oncology. Pulmonary infiltrates 03/02/2020 Chronic lymphocytic leukemia 02/13/2015 Assessment & Plan (06/26/2023 10:22 AM CALL CENTER SUPPORT CONSULTANT): Chronic, stable, without evidence of disease progression. Continue heme-onc follow up. Assessment & Plan (05/02/2022 9:20 PM CALL CENTER SUPPORT CONSULTANT): Chronic, stable. Continue heme-onc follow up. Assessment & Plan (05/09/2021 11:02 AM CALL CENTER SUPPORT CONSULTANT): Chronic. Continue to follow with Hematology-Oncology. Resolved Problems Problem Noted Date Diagnosed Date Resolved Date Atrial fibrillation, chronic 01/04/2021 05/02/2022 Overview (01/04/2021): Added automatically from request for surgery [id number] Assessment & Plan (05/09/2021 11:03 AM CALL CENTER SUPPORT CONSULTANT): Chronic, currently stable and rate controlled with metoprolol, rhythm controlled with flecainide, and anticoagulated with Eliquis. Proceed with EP consult to evaluate switching therapies. Encounters Date Type Department Care Team Description 07/01/2024 8:30 AM CALL CENTER SUPPORT CONSULTANT Office Visit [address], [place] [address] Randy Hardin NP Routine physical examination (Primary Dx); Chronic lymphocytic leukemia (HCC); Chronic obstructive pulmonary disease, unspecified COPD type (HCC); Obstructive sleep apnea syndrome; Major depressive disorder, recurrent, mild; Morbid obesity with BMI of 45.0-49.9, adult (HCC); Paroxysmal atrial fibrillation (HCC); Chronic heart failure with preserved ejection fraction (HCC); Benign essential tremor 07/01/[address] [place] [phone] Kelly Peralta 06/04/2024 12:30 PM CALL CENTER SUPPORT CONSULTANT Telemedicine [facility] [address] [phone] Wendy Galo NP COPD with acute exacerbation (HCC) (Primary Dx) 06/04/2024 Nurse Triage [address] [place] [phone] Mel Bolton MD 05/12/2024 Documentation [facility] [address] [place] [phone] Samira Omer RMA Appointment 05/12/2024 Telephone [facility] [address] [place] [phone] Yandy Stoner RN 05/12/2024 Nurse Triage [address] [place] [phone] Mel Bolton MD 04/29/2024 7:30 AM CALL CENTER SUPPORT CONSULTANT Office Visit [facility] [address] [place] [phone] Sandy Emery MD Chronic lymphocytic leukemia (HCC) (Primary Dx) 04/14/[address] [place] [phone] Mel Bolton MD Symptom Based Call 04/14/2024 Documentation [facility] [address] [place] [phone] Samira Omer RMA Appointment from Last 3 [...] (Added by TW Conv) Heart disease Father Don Dougie Stomach cancer Father Shayne Constantino Family histor [...] on file Legal Sex Male 10:39 AM CALL CENTER SUPPORT CONSULTANT Gender Identity Male 02/02/2021 10:33 AM CDT Sexual Orientation Straight 10/29/2018 6: 40 AM CDT Obstetrics History Last Filed Vital Signs Vital Sign Reading Time Taken Comments Blood Pressure 120/60 07/01/2024 8:13 AM CALL CENTER SUPPORT CONSULTANT Pulse 90 07/01/2024 8:13 AM CALL CENTER SUPPORT CONSULTANT Temperature 36.2 C (97.2 F) 07/01/2024 8:13 AM CALL CENTER SUPPORT CONSULTANT Respiratory Rate 20 07/01/2024 8:13 AM CALL CENTER SUPPORT CONSULTANT Oxygen Saturation 95% 07/01/2024 8:13 AM CALL CENTER SUPPORT CONSULTANT Inhaled Oxygen Concentration - - Weight 129.3 kg (285 lb) 07/01/2024 8:13 AM CALL CENTER SUPPORT CONSULTANT Height 167.6 cm (5' 6 ) 07/01/2024 8:13 AM CALL CENTER SUPPORT CONSULTANT Body Mass Index 46 07/01/2024 8:13 AM CALL CENTER SUPPORT CONSULTANT Plan of Treatment Health Maintenance Due Date Last Done Comments Hepatitis B Screening 07/06/1979 Colon Cancer Screening-Colonoscopy 10/26/2024 07/14/2019, 04/28/2018 Postponed from 07/13/2024 (Patient declined, but will receive in the future) Covid-19 Vaccine () 07/01/2025 05/09/2023, 01/11/2022, 12/31/2020, Additional history exists Postponed [...] history exists Medical Devices Implanted Type Area Environmental Assistant Device Identifier Shelf Expiration Date Model / Serial / Lot [employer] [id number] Xcela 8fr 1.6mm 1 Lumen Power Injectable Attach Catheter Fill - [id number] Implanted:Qty: 1 on 08/17/2018 at [facility] [employer] 12/28/2022 [id number] / / [id number] Procedures Procedure Name Priority Date/Time Associated Diagnosis Comments ERYTHROCYTE SEDIMENTATION RATE Routine 04/09/2024 9:56 AM CALL CENTER SUPPORT CONSULTANT Chronic lymphocytic leukemia (HCC) LACTATE DEHYDROGENASE Routine 04/09/2024 9:56 AM CALL CENTER SUPPORT CONSULTANT Chronic lymphocytic leukemia (HCC) COMPREHENSIVE METABOLIC PANEL Routine 04/09/2024 9:56 AM CALL CENTER SUPPORT CONSULTANT Chronic lymphocytic leukemia (HCC) CBC WITH AUTO DIFFERENTIAL Routine 04/09/2024 9:56 AM CALL CENTER SUPPORT CONSULTANT Chronic lymphocytic leukemia (HCC) PSA SCREEN Routine 07/11/2023 8:15 AM CDT Preventative health care HEPATITIS C ANTIBODY Routine Gen Lab 08/17/2018 4:52 PM CDT from Last 3 Months or Most Recently Relevant to Health Maintenance Results * (ABNORMAL) CBC with auto differential (04/09/2024 9:56 AM CALL CENTER SUPPORT CONSULTANT) WBC 8.1 3.8 - 10.8 Thousand/u L [...] Diagnostics-S t Girish Blood 04/09/2024 9:56 AM CALL CENTER SUPPORT CONSULTANT 04/09/2024 9:57 AM CALL CENTER SUPPORT CONSULTANT us Sandy Emery MD LAB BLOOD ORDERABLES Final Result [facility] [address] [place] [address] * Erythrocyte sedimentation rate (04/09/2024 9:56 AM CALL CENTER SUPPORT CONSULTANT) Erythrocyte sedimentation rate 2 < OR = 20 mm/h [facility] Blood 04/09/2024 9:56 AM CALL CENTER SUPPORT CONSULTANT 04/09/2024 9:57 AM CALL CENTER SUPPORT CONSULTANT Sandy Emery MD LAB BLOOD ORDERABLES Final Result Performing Organization Address [facility] de Phone Number [facility] [address] [place] [address] * Lactate dehydrogenase (LD) (04/09/2024 9:56 AM CALL CENTER SUPPORT CONSULTANT) Pathologist [facility] Lactate dehydrogenase (LDH) 131 120 - 250 U/L [facility] Blood 04/09/2024 9:56 AM CALL CENTER SUPPORT CONSULTANT 04/09/2024 9:57 AM CALL CENTER SUPPORT CONSULTANT Sandy Emery MD LAB BLOOD ORDERABLES Final Result Performing Organization Address [facility] de Phone Number [facility] [address] [place] [address] * (ABNORMAL) Comprehensive metabolic panel (04/09/2024 9:56 AM CALL CENTER SUPPORT CONSULTANT) Pathologist [facility] Glucose 112(H) 65 - 99 mg/dL [address] [facility] Comment: Fasting reference interval For someone without known diabetes, a glucose value between 100 and 125 mg/dL is consistent with prediabetes and should be confirmed with a follow-up test. BUN 19 7 - 25 mg/dL [address] [facility] Creatinine 0.91 0.70 - 1.35 mg/dL [facility] eGFR 95 > OR = 60 mL/min/1.7 3m2 [address] [facility] BUN/creat ratio SEE NOTE: 6 22 (calc) [address] [facility] Comment: Not Reported: BUN and Creatinine are within reference range. Sodium 143 135 - 146 mmol/L [facility] Potassium, pl 4.2 3.5 - 5.3 mmol/L [address] [facility] Chloride 103 98 - 110 mmol/L [facility] CO2 32 20 - 32 mmol/L [facility] Calcium 8.9 8.6 - 10.3 mg/dL [facility] Protein, sr 6.2 6.1 - 8.1 g/dL [facility] Albumin 4.3 3.6 - 5.1 g/dL [facility] GLOBULIN 1.9 1.9 - 3.7 g/dL (calc) [facility] Alb/glob ratio 2.3 1.0 - 2.5 (calc) [facility] Bilirubin, total 0.6 0.2 - 1.2 mg/dL [facility] Alk phos 61 35 - 144 U/L [facility] AST 13 10 - 35 U/L [facility] ALT (SGPT) 20 9 - 46 U/L [facility] Blood 04/09/2024 9:56 AM CALL CENTER SUPPORT CONSULTANT 04/09/2024 9:57 AM CALL CENTER SUPPORT CONSULTANT us Sandy Emery MD LAB BLOOD ORDERABLES Final Result [facility] [address] [place] [address] * PSA screen (07/11/2023 8:15 AM CDT) PSA 0.77 < OR = 4.00 ng/mL [facility] Comment: The total PSA value from this assay system is standardized against the WHO standard. The test result will be approximately 20% lower when compared to the equimolar-standardized total PSA (Lorenzo [place]). Comparison of serial PSA results should be [...] ORDERABLES Final Re sult Performing Organization Address City/[facility]/ZIP Co de Phone Number [facility] [address] [phone] * Hepatitis C antibody (08/17/2018 4:52 PM CDT) Hep C Ab Nonreactive Nonreactive [facility] Comment: Interpretive Data Positive results should be confirmed by a molecular method. If positive, a second separately collected sample should be submitted for Hepatitis C Virus (HCV) RNA Detection and Quantitation by Real-Time Reverse Document Manager-PCR (RT-PCR). Current interpretive data was last revised on 2016. Blood specimen (specimen) 08/17/2018 4:52 PM CDT 08/17/2018 8:38 PM CDT Narrative [facility] - 08/18/2018 10:46 AM CDT Sandy Emery MD LAB MICROBIOLOGY - GENERAL ORDERABLES Edited Result - Final Performing Organization Address City/[facility] Co de Phone Number [facility] Department [place] [address] from Last 3 Months or Most Recently Relevant to Health Maintenance Insurance [facility] COMMERCIAL GENERIC Advance Directives For more information, please contact: [phone] * Full Code (Latest Code Status on File) Date Activated Date Inactivated Comments 04/01/2019 9:26 AM 04/01/2019 2:30 PM * Full Code Date Activated Date Inactivated Comments 08/17/2018 1:14 PM 08/17/2018 7:55 PM Care Teams Transmission Superintendent Relationship Specialty Start Date End Date Mel Bolton MD [address] [address] PCP - General Sleep Medicine 04/30/21 Daryn Loo MD Referring Physician Internal Medicine 04/03/18 Sandy Emery MD Medical Oncologist/Animal Researcher Medical Oncology 06/17/20 Willie Choe MD [address] [place] [address] Consulting Physician Otolaryngology 08/17/20 Chapito Bejarano MD [address] [address] Referring Physician Vascular Surgery 02/16/21
--- OUTSIDE RECORDS SUMMARY | 2024-07-06 01:21 | XMS_ITS | Encounter Summary ---
Author Organization [facility] Address [address] [place] [address] Phone Care Team Providers Care Educational Therapist Name Role Phone Clement Whalen MD Primary Care Provider [phone] Clement Whalen MD Primary Care Provider [phone] Daryn Loo MD Unavailable [phone] Aamir Echavarria MD Primary Care Provider [phone] Sandy Emery MD Unavailable [phone] Willie Choe MD Unavailable [phone] Chapito Bejarano MD Unavailable [phone] Mel Bolton MD Primary Care Provider [phone] Encounter Details Date Type Department Care Team (Late st Contact Info) Description 09/23/2017 [facility] Only [facility] ProviderSteve MD [address] [place] [address] Social History Tobacco Use Types Packs/Day Years Used Date Smoking Tobacco: Former Sex and Gender Information Value Date Recorded Sex Assigned at Not on file Legal Sex Male 10:39 AM MECHANICAL ENGINEERING DIRECTOR Gender Identity Male 02/02/2021 10:33 AM CDT [...] COVID: Suspected 04/12/2020 04/12/2020 04/13/2020 1:02 AM MECHANICAL ENGINEERING DIRECTOR Respiratory Infection (HONEY), contact + droplet Comment:Automatically added due to negative COVID-19 result. 04/13/2020 04/13/2020 04/27/2020 3:0 6 AM MECHANICAL ENGINEERING DIRECTOR documented as of this encounter Care Teams Educational Therapist Relationship Specialty Start Date End Date Clement Whalen MD PCP - General 07/11/17 09/24/17 Clement Whalen MD PCP - General 09/25/17 12/13/18 Aamir Echavarria MD PCP - General Internal Medicine 12/14/18 04/29/21 Mel Bolton MD [address] [address] PCP - General Sleep Medicine 04/30/21 Daryn Loo MD Referring Physician Internal Medicine 04/03/18 Sandy Emery MD Medical Oncologist/Plunger Scoop Operator Medical Oncology 06/17/20 Willie Choe MD [address] [place] [address] Consulting Physician Otolaryngology 08/17/20 Chapito Bejarano MD [facility] [address] [facility] [address] [place] [address] Referring Physician Vascular Surgery 02/16/21 documented as of this encounter
--- OUTSIDE RECORDS SUMMARY | 2024-07-06 01:21 | XMS_ITS | Clinical Summary ---
Author Organization [facility] [employer] Address [address] [place] [address] Care Team Providers Care Molten Iron Pourer Name Role Phone Aamir Echavarria MD Primary Care Provider [phone] Source Comments [facility] [employer],non-owned Affiliates and Associated Physician Practices is amultiple site organization consisting of ambulatory clinics and hospital sitesin [place], [place], [place] and [place]. This disclosure is being madepursuant to the Care Everywhere program and may not contain all information available regarding this patient. Last updated [email or web address] Allergies No known active allergies Medications * [...] 37.3 C (99.1 F) 03/14/2017 9:49 AM TELECOM BILLING ANALYST Respiratory Rate 18 08/01/2017 9:50 AM CDT Oxygen Saturation 96% 08/01/2017 9:50 AM CDT Inhaled Oxygen Concentration 100% 12:43 PM TELECOM BILLING ANALYST Weight 109.2 kg (240 lb 11.2 oz) [...] this topic Medical Devices Implanted Type Area Shagger Device Identifier Shelf Expiration Date Model / Serial / Lot Evicel Implanted:Qty: 1 on 06/25/2016 by Emmett Moffett MD at [facility] N/A: Abdomen [employer] 10/25/2017 [id number] / / [id number] Procedures Procedure Name Priority Date/Time Associated Diagnosis Comments COMPREHENSIVE METABOLIC PANEL Routine 06/26/2016 3:39 AM TELECOM BILLING ANALYST from Last 3 Months or Most Recently Relevant to Health Maintenance Results * (ABNORMAL) COMPREHENSIVE METABOLIC PANEL (06/26/2016 3:39 AM TELECOM BILLING ANALYST) Glucose 130(H) 70 - 125 mg/dL 06/26/2016 5:11 AM [facility] Sodium 135(L) 136 - 145 mmol/L 06/26/2016 5:11 AM [facility] Potassium 4.7(H) 3.4 - 4.5 mmol/L 06/26/2016 5:11 AM [facility] Chloride 102 98 - 107 mmol/L 06/26/2016 5:11 AM [facility] CO2 23 22 - 29 mmol/L 06/26/2016 5:11 AM [facility] Calcium 8.3(L) 8.4 - 10.2 mg/dL 06/26/2016 5:11 AM [facility] Anion Gap 15 10 - 20 mmol/L 06/26/2016 5:11 AM [facility] BUN 14.6 8.4 - 25.7 mg/dL 06/26/2016 5:11 AM [facility] Creatinine 1.14 0.72 - 1.25 mg/dL 06/26/2016 5:11 AM [facility] eGFR by MDRD >60 >60 mL/min/1.7 3m2 06/26/2016 5:11 AM [facility] eGFR by MDRD >60 >60 mL/min/1.7 3m2 06/26/2016 5:11 AM [facility] Alkaline Phosphatase 67 40 - 150 U/L 06/26/2016 5:11 AM [facility] ALT 24 5 - 55 U/L 06/26/2016 5:11 AM [facility] AST 25 5 - 34 U/L 06/26/2016 5:11 AM [facility] Protein Total 6.7 6.4 - 8.3 gm/dL 06/26/2016 5:11 AM [facility] Albumin 3.8 3.5 - 5.0 gm/dL 06/26/2016 5:11 AM [facility] Globulin Total 2.9 2.6 - 4.0 gm/dL 06/26/2016 5:11 AM [facility] Albumin/Globulin Ratio 1.3 0.9 - 1.6 06/26/2016 5:11 AM [facility] Bilirubin Total 0.3 0.2 - 1.2 mg/dL 06/26/2016 5:11 AM [facility] Blood BLOOD SPECIMEN / Unknown Lab Venipuncture / Unknown 06/26/2016 3:39 AM TELECOM BILLING ANALYST 06/26/2016 4:44 AM [facility] Emmett Moffett MD LAB - CHEMISTRY [facility]ID WAD[facility] Organization Address [facility]/State/[facility] Co de Phone Number [facility] [address] from Last 3 Months or Most Recently Relevant to Health Maintenance Advance Directives * Full Code (Latest Code Status on File) Date Activated Date Inactivated Comments 06/25/2016 2:22 PM 06/26/2016 6:21 PM Care Teams Molten Iron Pourer Relationship Specialty Start Date End Date Aamir Echavarria MD PCP - General Internal Medicine 02/06/21
--- OUTSIDE RECORDS SUMMARY | 2024-07-06 01:21 | XMS_ITS | Encounter Summary ---
Author Organization [facility] Address [address] [place] [address] Phone Care Team Providers Care Aerospace Quality Engineer Name Role Phone Daryn Loo MD Unavailable [phone] Aamir Echavarria MD Primary Care Provider [phone] Sandy Emery MD Unavailable [phone] Willie Choe MD Unavailable [phone] Chapito Bejarano MD Unavailable [phone] Mel Bolton MD Primary Care Provider [phone] Encounter Details Date Type Department Care Team [...] on file Legal Sex Male 10:39 AM CLAY CARMAN Gender Identity Male 02/02/2021 10:33 AM CDT [...] on filedocumented in this encounter Care Teams Aerospace Quality Engineer Relationship Specialty Start Date End Date Aamir Echavarria MD PCP - General Internal Medicine 12/14/18 04/29/21 Mel Bolton MD [address] [facility] [address] [place] [address] PCP - General Sleep Medicine 04/30/21 Daryn Loo MD Referring Physician Internal Medicine 04/03/18 Sandy Emery MD Medical Oncologist/Supply Requirements Officer Medical Oncology 06/17/20 Willie Choe MD [address] [place] [address] Consulting Physician Otolaryngology 08/17/20 Chapito Bejarano MD [address] [place] [address] Referring Physician Vascular Surgery 02/16/21 documented as of this encounter
--- OUTSIDE RECORDS SUMMARY | 2024-07-06 01:21 | XMS_ITS | Encounter Summary ---
Author Organization [facility] Address [address] [place] [address] Phone Care Team Providers Care Bowling Alley Operator Name Role Phone Daryn Loo MD Unavailable [phone] Aamir Echavarria MD Primary Care Provider [phone] Sandy Emery MD Unavailable [phone] Willie Choe MD Unavailable [phone] Chapito Bejarano MD Unavailable [phone] Mel Bolton MD Primary Care Provider [phone] Encounter Details Date Type Department Care Team (Latest Contact Info) Description 07/02/2019 Orders Only [facility] Scanning, Provider Social History Tobacco Use Types Packs/Day Years Used Date Smoking Tobacco: Former Smokeless Tobacco: Never Sex and Gender Information Value Date Recorded Sex Assigned at Not on file Legal Sex Male 10:39 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 04/13/2020 04/13/2020 04/27/2020 3:0 6 AM SCHEDULE MAKER documented as of this encounter Care Teams Bowling Alley Operator Relationship Specialty Start Date End Date Aamir Echavarria MD PCP - General Internal Medicine 12/14/18 04/29/21 Mel Bolton MD [address] [facility] [address] [place], [place] [id number] PCP - General Sleep Medicine 04/30/21 Daryn Loo MD Referring Physician Internal Medicine 04/03/18 Sandy Emery MD Medical Oncologist/Log Pond Worker Medical Oncology 06/17/20 Willie Choe MD [address] [place] [address] Consulting Physician Otolaryngology 08/17/20 Chapito Bejarano MD [address] [place] [address] Referring Physician Vascular Surgery 02/16/21 documented as of this encounter
--- OUTSIDE RECORDS SUMMARY | 2024-07-06 01:21 | XMS_ITS | Referral Summary ---
Author Organization [facility] Address [address] [place] [address] Care Team Providers Care Patient Case Coordinator Name Role Phone Aamir Echavarria MD Primary Care Provider [phone] Source Comments [facility],non-owned Affiliates and Associated Physician Practices is amultiple site organization consisting of ambulatory clinics and hospital sitesin [place], [place]. This disclosure is being madepursuant to the Care Everywhere program and may not contain all information available regarding this patient. Last updated 18.[facility] Allergies No known active allergies Medications * [...] 37.3 C (99.1 F) 03/14/2017 9:49 AM HYDRAULIC PLUMBER Respiratory Rate 18 08/01/2017 9:50 AM CDT Oxygen Saturation 96% 08/01/2017 9:50 AM CDT Inhaled Oxygen Concentration 100% 12:43 PM HYDRAULIC PLUMBER Weight 109.2 kg (240 lb 11.2 oz) [...] on file Medical Devices Implanted Type Area Dishwasher Device Identifier Shelf Expiration Date Model / Serial / Lot Evicel Implanted:Qty: 1 on 06/25/2016 by Emmett Moffett MD at [facility] N/A: Abdomen Ethicon Endo 10/25/2017 [id number] / / [id number] Procedures Procedure Name Priority Date/Time Associated Diagnosis Comments COMPREHENSIVE METABOLIC PANEL Routine 06/26/2016 3:39 AM HYDRAULIC PLUMBER from Last 3 Months or Most Recently Relevant to Health Maintenance Results * (ABNORMAL) COMPREHENSIVE METABOLIC PANEL (06/26/2016 3:39 AM HYDRAULIC PLUMBER) [facility] Glucose 130(H) 70 - 125 mg/dL 06/26/2016 5:11 AM HYDRAULIC PLUMBER [facility] Sodium 135(L) 136 - 145 mmol/L 06/26/2016 5:11 AM [facility] Potassium 4.7(H) 3.4 - 4.5 mmol/L 06/26/2016 5:11 AM [facility] Chloride 102 98 - 107 mmol/L 06/26/2016 5:11 AM [facility] CO2 23 22 - 29 mmol/L 06/26/2016 5:11 AM [facility] Calcium 8.3(L) 8.4 - 10.2 mg/dL 06/26/2016 5:11 AM [facility] Anion Gap 15 10 - 20 mmol/L 06/26/2016 5:11 AM [facility] BUN 14.6 8.4 - 25.7 mg/dL 06/26/2016 5:11 AM [facility] Creatinine 1.14 0.72 - 1.25 mg/dL 06/26/2016 5:11 AM [facility] eGFR by MDRD >60 >60 mL/min/1.7 3m2 06/26/2016 5:11 AM [facility] eGFR by MDRD >60 >60 mL/min/1.7 3m2 06/26/2016 5:11 AM [facility] Alkaline Phosphatase 67 40 - 150 U/L 06/26/2016 5:11 AM [facility] ALT 24 5 - 55 U/L 06/26/2016 5:11 AM [facility] AST 25 5 - 34 U/L 06/26/2016 5:11 AM [facility] Protein Total 6.7 6.4 - 8.3 gm/dL 06/26/2016 5:11 AM [facility] Albumin 3.8 3.5 - 5.0 gm/dL 06/26/2016 5:11 AM [facility] Globulin Total 2.9 2.6 - 4.0 gm/dL 06/26/2016 5:11 AM [facility] Albumin/Globulin Ratio 1.3 0.9 - 1.6 06/26/2016 5:11 AM [facility] Bilirubin Total 0.3 0.2 - 1.2 mg/dL 06/26/2016 5:11 AM [facility] Blood BLOOD SPECIMEN / Unknown Lab Venipuncture / Unknown 06/26/2016 3:39 AM HYDRAULIC PLUMBER 06/26/2016 4:44 AM HYDRAULIC PLUMBER Emmett Moffett MD LAB - CHEMISTRY [place] [facility] [address] from Last 3 Months or Most Recently Relevant to Health Maintenance Advance Directives * Full Code (Latest Code Status on File) Date Activated Date Inactivated Comments 06/25/2016 2:22 PM 06/26/2016 6:21 PM Care Teams Patient Case Coordinator Relationship Specialty Start Date End Date Aamir Echavarria MD PCP - General Internal Medicine 02/06/21
--- OUTSIDE RECORDS SUMMARY | 2024-07-06 01:21 | XMS_ITS | Encounter Summary ---
Author Organization [facility] Address [address] [place] [address] Phone Care Team Providers Care Shipping Hand Name Role Phone Daryn Loo MD Unavailable [phone] Aamir Echavarria MD Primary Care Provider [phone] Sandy Emery MD Unavailable [phone] Willie Choe MD Unavailable [phone] Chapito Bejarano MD Unavailable [phone] Mel Bolton MD Primary Care Provider [phone] Encounter Details Date Type Department Care Team (Late st Contact Info) Description 04/05/2021 Telephone [facility] Cardiology [address] [facility] Advanced Medicine [address]th [place] [address] [place] [address] Stephanie Sawyer Social History Tobacco Use Types Packs/Day Years Used Date Smoking Tobacco: Former Smokeless Tobacco: Never Alcohol Use Standard Drinks/Week Comments Not Currently 0 (1 standard drink = 0.6 oz pur e alcohol) Sex and Gender Information Value Date Recorded Sex Assigned at Not on file Legal Sex Male 10:39 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 [address] [place] [address] PCP - General Sleep Medicine 04/30/21 Daryn Loo MD Referring Physician Internal Medicine 04/03/18 Sandy Emery MD Medical Oncologist/Leather Tanner Medical Oncology 06/17/20 Willie Choe MD [address] [place] [address] Consulting Physician Otolaryngology 08/17/20 Chapito Bejarano MD [address] [facility] [address] [place] [address] Referring Physician Vascular Surgery 02/16/21 documented as of this encounter
--- OUTSIDE RECORDS SUMMARY | 2024-07-06 01:21 | XMS_ITS | Encounter Summary ---
Author Organization [facility] Address [address] [place] [address] Phone Care Team Providers Care Supervisor Beater Room Name Role Phone Daryn Loo MD Unavailable [phone] Aamir Echavarria MD Primary Care Provider [phone] Sandy Emery MD Unavailable [phone] Willie Choe MD Unavailable [phone] Chapito Bejarano MD Unavailable Mel Bolton MD Primary Care Provider [phone] Encounter Details Date Type Department Care Team [...] on file Legal Sex Male 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 Gender Identity Male 02/02/2021 10:33 AM CDT [...] on filedocumented in this encounter Care Teams Supervisor Beater Room Relationship Specialty Start Date End Date Aamir Echavarria MD PCP - General Internal Medicine 12/14/18 04/29/21 Mel Bolton MD [address] [facility] [address] [place] [address] PCP - General Sleep Medicine 04/30/21 Daryn Loo MD Referring Physician Internal Medicine 04/03/18 Sandy Emery MD Medical Oncologist/Stringing Machine Tender Medical Oncology 06/17/20 Willie Choe MD [address] [place] [address] Consulting Physician Otolaryngology 08/17/20 Chapito Bejarano MD [address] [place] [address] Referring Physician Vascular Surgery 02/16/21 documented as of this encounter
--- OUTSIDE RECORDS SUMMARY | 2024-07-06 01:21 | XMS_ITS | Clinical Summary ---
Author Organization [facility] Address [address] [place] [address] Care Team Providers Care Atomic Fuel Assembler Name Role Phone Rogelio Shi MD Primary [...] age to complete this topic Care Teams Atomic Fuel Assembler Relationship Specialty Start Date End Date Rogelio Shi MD PCP - General 12/26/14
[2024-07-06] MEDS: LACTATED RINGERS 1,000 ML 30 ML IV CONT ×2 (08:05→10:55)
--- NOTE | 2024-07-06 08:37 | WPDHPUPDATE1 ---
History and Physical Update Update Date/Time: 07/06/24 08:37 History and Physical has been reviewed, including an updated exam of the patient. There are NO changes in the patient's condition. Risks, benefits, and alternatives have been discussed and questions answered. Patient agrees to proceed with procedure.
--- NOTE | 2024-07-06 08:37 | WPDANESEPPF ---
Anes - Initial Pre Proc Eval Procedure: Operation Date: 07/06/24 09:30 Proposed Procedures p Cystoscopy, Possible Holmium Laser of Urethral Calculus - Jose Ramon Michel MD Date/Time: 07/06/24 08:37 Surgeon: Jose Ramon Michel MD Pre Op Diagnosis: Urethral Stone Patient Data Age: 64 Gender: M Height: 1.68 m Weight: 126 kg Last Vital Signs Temp 97.4 F L 07/06/24 08:09 Pulse 71 07/06/24 08:09 Resp 16 07/06/24 08:09 BP 112/58 L 07/06/24 08:09 Pulse Ox 98 07/06/24 08:09 O2 Del Method Room Air 07/06/24 08:09 Allergies Allergy/AdvReac Type Severity Reaction Status Date / Time No Known Allergies Allergy Mild Verified 07/06/24 08:07 Home Medications ?Medication ?Instructions ?Recorded ?Confirmed ?Type albuterol sulfate 90 mcg/actuation 1 puff inhalation Q4H PRN 02/18/24 07/02/24 History aerosol inhaler shortness of breath or wheezing aspirin 81 mg tablet,delayed 81 mg PO DAILY 02/18/24 07/06/24 History release clopidogrel 75 mg tablet 75 mg PO DAILY 02/18/24 07/06/24 History furosemide 20 mg tablet 20 mg PO BID 02/18/24 07/06/24 History metoprolol succinate 25 mg 25 mg PO DAILY 02/18/24 07/06/24 History tablet,extended release 24 hr omeprazole 40 mg capsule,delayed 40 mg PO DAILY 02/18/24 07/06/24 History release prochlorperazine maleate 10 mg 10 mg PO Q8H PRN nausea 02/18/24 07/02/24 History tablet propranolol 60 mg capsule,24 60 mg PO DAILY 02/18/24 07/06/24 History hr,extended release trazodone 50 mg tablet 50 mg PO QHS PRN pain 02/18/24 07/02/24 History allopurinol 300 mg tablet 300 mg PO DAILY 07/02/24 07/06/24 History ascorbic acid (vitamin C) 1,000 mg 1 g PO DAILY 07/02/24 07/06/24 History tablet (C-1000) Patient hx anesthesia problems: none Family hx anesthesia problems: none Results Review: All pre-operative results and documents have been reviewed as part of the pre-operative evaluation. [facility] Past Medical History Medical History History of chronic lymphocytic leukemia History of tennis elbow 1992 Cancer GERD (gastroesophageal reflux disease) Asthma Surgical History Surgical History History of surgery on lower extremity stints in upper thigh right leg 2020 History of nasal surgery stints 2019 History of cholecystectomy 2018 History of weight loss surgery gastric sleeve 2017 History of tumor removed from right side of jaw under ear 2015 History of skin graft left right finger from neck 1980 History of appendectomy 1975 Family History Family History Father Heart disease Grandparent Cerebrovascular accident Social History Social History Smoking packs per day: 1.5 Smoking cigarettes per day: 30.0 Years smoked: 30 Smoking pack-years: 45.00 Smoking status: Former smoker Tobacco type: cigarettes Smoking end date: 04/28/94 Alcohol intake: current Drinks per week: 3 Substance use: never Do You Feel Safe in your Home?: Yes Lack of Transportation: No Lack of Food: Never True Current Housing: I Have Housing Concerned About Future Housing: No Difficulty Paying Gas/Electric Bills: No Difficulty Paying for Meds: No Currently Unemployed: No Education: High School Diploma/GED Difficulty w/ Childcare or Family Care: No Living arrangements: with family Spiritual care concerns: No Anes - Eval Final PreProcedure Day of Procedure 07/06/24 08:37 Patient weight: morbidly obese Lungs: normal air movement Airway: Mallampati scale class II and special considerations (Missing many back post aspect teeth. ) Neurological: alert and oriented Last oral intake: >/= 8 hours ASA classification: III Emergent: no Anesthetic plan: proceed Anesthesia type and monitoring: general LMA and standard monitoring Results Review: All pre-operative results and documents have been reviewed as part of the pre-operative evaluation. Ex smoker quit , KARLA but pt noncompliant w CPAP. Pt can walk short distances without cp, mild sob, generally not physically active. Informed Consent: The patient's anesthetic plan and its attendant risks and benefits were discussed with the patient/family/POA. Questions were solicited and answers provided to the satisfaction of the patient/family/POA.
[2024-07-06] MEDS: LIDOCAINE 2% JELLY 5 ML TUBE 1 APPLIC MUCOUS MEM (09:57)
[2024-07-06] MEDS: ceFAZolin 3 GM/D5W 100 ML 100 ML IVPB (10:21)
--- NOTE | 2024-07-06 10:49 | W.PM.PROC2 ---
Procedure Note - Detailed Date of Procedure 07/06/24 Pre-op Diagnosis Urethral Stone Post-op Diagnosis Same (Same, fossa navicularis stricture) Procedure Performed Urethral dilation, cystoscopy with extraction of bladder/urethral calculus, Ibarra catheter placement Surgeon Jose Ramon Michel MD Anesthesia General Description of Procedure Patient is taken to the operative suite correctly identified. Once anesthesia was obtained was placed in dorsal lithotomy position and prepped draped in usual sterile fashion. This large stone was located near the fossa navicular area. I was unable to place a cystoscope in. I used a hemostat to try and fragment the stone but this was unsuccessful. I then used a rigid ureteral scope to inserted into the meatus. This was able to manipulate the stone and push it back into the bladder. At this point time the fossa navicularis area was dilated up to 24 Malaysian using male sounds. Twenty-two Malaysian cystoscope was then inserted into the bladder. There were no other urethral strictures. Prostate without any significant hypertrophy. The bladder itself had no tumors. The stone was grasped with an escape basket and sent for analysis. He did have some bleeding at the dilated fossa navicularis area. I thus placed 2% viscous lidocaine and a 16 Malaysian Ibarra. He was taken recovery room stable condition. He will be discharged home with a Ibarra and have it removed in a day or 2. This completes dictation. Please send a copy of op note to my office Estimated Blood Loss 0 Drains Yes Packing No Pathology Yes Complications No immediate complications Condition Stable
[2024-07-06] MEDS: oxyCODONE HCL (*CRX) 5 MG TAB IR PO (11:54)
== END 2024-07-06 12:28 | disposition home or self-care (01) ==
PROVIDERS: Visit Provider Urology
PROC: (CPT 52352; principal; 2024-07-06 09:30)
DX: N21.1 Calculus in urethra (principal); N35.819 Other urethral stricture, male, unspecified site; Z87.891 Personal history of nicotine dependence; E66.01 Morbid (severe) obesity due to excess calories; Z68.41 Body mass index [BMI] 40.0-44.9, adult
CPT/HCPCS: 52310; 82365; 88300; A9270; C1769; J0690; J1100; J2003; J2250; J2405; J2704; J3010; J7120